=== PATIENT | male | born 1965 | race Caucasian/White ===

== ENCOUNTER 2016-12-15 13:04 | Inpatient (IN) | payer MEDICAID ==
[2016-12-15] MEDS ORDERED: SODIUM CHLORIDE 0.9% 1,000 ML IV ONE ×2 (13:27→15:04)
[2016-12-15] MEDS ORDERED: INSULIN REGULAR HUMAN 100 UNIT in SODIUM CHLORIDE 0.9% 100ML 99 ML IV STA (14:24)
[2016-12-15] MEDS ORDERED: HYDROcod/ACETAM 5/325 MG TABLET PO PRN (14:57)
[2016-12-15] MEDS ORDERED: SODIUM CHLORIDE FLUSH 0.9% 10 ML SYRINGE IVP PRN (14:57)
[2016-12-15] MEDS ORDERED: ONDANSETRON 4 MG/2 ML VIAL IVP PRN (14:57)
[2016-12-15] MEDS ORDERED: INSULIN REGULAR HUMAN 100 UNIT in SODIUM CHLORIDE 0.9% 100ML 99 ML IV SCH (15:00)
[2016-12-15] MEDS: SODIUM CHLORIDE 0.9% 1,000 ML IV SCH ×2 (15:56→21:47)
[2016-12-15] MEDS ORDERED: NICOTINE 21 MG PATCH TOP ONE (21:10)
[2016-12-15] MEDS: SODIUM CHLORIDE FLUSH 0.9% 10 ML SYRINGE IVP SCH (21:47)
[2016-12-15] MEDS ORDERED: INSULIN GLARGINE 300 UNIT/3 ML PEN SUBQ SCH (23:10)
[2016-12-15] MEDS ORDERED: INSULIN GLARGINE 300 UNIT/3 ML PEN SUBQ ONE (23:38)
[2016-12-16] MEDS: SODIUM CHLORIDE 0.9% 1,000 ML IV SCH ×4 (03:08→22:32)
[2016-12-16] MEDS: SODIUM CHLORIDE FLUSH 0.9% 10 ML SYRINGE IVP SCH ×3 (03:09→20:40)
[2016-12-16] MEDS: ACETAMINOPHEN 325 MG TABLET PO PRN ×3 (04:30→20:47)
[2016-12-16] MEDS: LEVOTHYROXINE 100 MCG TABLET PO SCH (06:43)
[2016-12-16] MEDS: INSULIN ASPART 300 UNIT/3 ML PEN SUBQ SCH ×5 (08:14→20:38)
[2016-12-16] MEDS: NICOTINE 21 MG PATCH TOP SCH (08:19)
[2016-12-16] MEDS: ENOXAPARIN 40 MG/0.4 ML SYRINGE SUBQ SCH (08:19)
[2016-12-16] MEDS ORDERED: INSULIN GLARGINE 300 UNIT/3 ML PEN SUBQ SCH (21:00)
[2016-12-17] MEDS: SODIUM CHLORIDE FLUSH 0.9% 10 ML SYRINGE IVP SCH (05:41)
[2016-12-17] MEDS: LEVOTHYROXINE 100 MCG TABLET PO SCH (06:03)
[2016-12-17] MEDS: INSULIN ASPART 300 UNIT/3 ML PEN SUBQ SCH ×4 (08:28→11:49)
[2016-12-17] MEDS: NICOTINE 21 MG PATCH TOP SCH (08:28)
[2016-12-17] MEDS: ENOXAPARIN 40 MG/0.4 ML SYRINGE SUBQ SCH (08:30)
== END 2016-12-17 13:16 | disposition home or self-care (01) | DRG 638 ==
DX: E11.01 Type 2 diabetes mellitus with hyperosmolarity with coma (principal); E87.1 Hypo-osmolality and hyponatremia; T38.3X6A Underdosing of insulin and oral hypoglycemic [antidiabetic] drugs, initial encounter; E86.0 Dehydration; B19.20 Unspecified viral hepatitis C without hepatic coma; F17.210 Nicotine dependence, cigarettes, uncomplicated; E03.9 Hypothyroidism, unspecified; Z63.79 Other stressful life events affecting family and household

== ENCOUNTER 2016-12-17 23:29 | Emergency (ER) | payer MEDICAID ==
[2016-12-18] MEDS ORDERED: INSULIN REGULAR HUMAN 100 UNIT/1 ML 10 ML MDV SUBQ STA (00:23)
[2016-12-18] MEDS ORDERED: INSULIN REGULAR HUMAN 100 UNIT/1 ML 10 ML MDV ONE (00:33)
== END 2016-12-18 02:27 | disposition home or self-care (01) ==
DX: E11.65 Type 2 diabetes mellitus with hyperglycemia (principal); Z79.4 Long term (current) use of insulin; F17.200 Nicotine dependence, unspecified, uncomplicated
CPT/HCPCS: 99283; J1815

== ENCOUNTER 2017-01-14 07:42 | Outpatient (CLI) | payer MEDICAID ==
[2017-01-14 14:05] LABS: BASOPHILS # (AUTO) 0.1 10^3/uL (0.0-0.1); BASOPHILS % (AUTO) 1.1 %; EOSINOPHILS # (AUTO) 0.4 10^3/uL (0.0-0.7); HCT - HEMATOCRIT 33.9 % (42.0-52.0); HGB - HEMOGLOBIN 11.6 g/dL (14.0-18.0); LYMPHOCYTES # (AUTO) 2.1 10^3/uL (1.5-3.5); MEAN CORPUSCULAR HGB CONC 34.1 g/dL (32.0-36.0); MEAN CORPUSCULAR VOLUME 96.8 fL (80.0-94.0); MEAN PLATELET VOLUME 11.5 fL (7.4-11.4); MONOCYTES # (AUTO) 0.7 10^3/uL (0.0-1.0); MONOCYTES % (AUTO) 9.4 %; NEUTROPHILS # (AUTO) 3.9 10^3/uL (1.5-6.6); NEUTROPHILS % (AUTO) 54.5 %; RED CELL DISTRIBUTION WIDTH 17.2 % (12.0-15.0); UNCORRECTED WHITE BLOOD COUNT 7.1 x10^3/uL; WHITE BLOOD COUNT 7.1 x10^3/uL (4.8-10.8)
[2017-01-14 14:29] LABS: HEMOGLOBIN A1C 1.08 g/dL
[2017-01-14 14:42] LABS: ALBUMIN/GLOBULIN RATIO 0.9 (1.0-2.2); BILIRUBIN,TOTAL 1.9 mg/dL (0.2-1.0); BUN - BLOOD UREA NITROGEN 17 mg/dL (6-20); CALCIUM 9.5 mg/dL (8.5-10.3); CARBON DIOXIDE - CO2 26 mmol/L (21-32); CHLORIDE 107 mmol/L (101-111); CHOL/HDL RATIO 4.2 (<5.0); CHOLESTEROL 198 mg/dL; CREATININE 0.7 mg/dL (0.6-1.2); GFR - MDRD 119 (>89); GLUCOSE 124 mg/dL (70-100); HDL CHOLESTEROL 47 mg/dL; LDL/HDL RATIO 2.7 (<3.6); POTASSIUM 4.1 mmol/L (3.5-5.0); SODIUM 140 mmol/L (135-145); TOTAL PROTEIN 7.5 g/dL (6.7-8.2); TRIGLYCERIDES 122 mg/dL; VLDL CHOLESTEROL 24 mg/dL
[2017-01-14 14:49] LABS: THYROID STIMULATING HORMONE 48.75 uIU/mL (0.34-5.60)
== END 2017-01-14 07:43 | disposition home or self-care (01) ==
LOC: LAB.N 07:42
PROVIDERS: ATTEND Family Medicine
DX: E11.65 Type 2 diabetes mellitus with hyperglycemia (principal); E03.9 Hypothyroidism, unspecified; R19.5 Other fecal abnormalities; B18.2 Chronic viral hepatitis C
CPT/HCPCS: 36415; 80053; 80061; 83036; 84439; 84443; 85025; 86803; 87522

== ENCOUNTER 2017-02-21 15:01 | Outpatient (CLI) | payer MEDICAID ==
[2017-02-21 13:30] LABS: BASOPHILS % (AUTO) 0.7 %; EOSINOPHILS # (AUTO) 0.3 10^3/uL (0.0-0.7); EOSINOPHILS % (AUTO) 3.9 %; HCT - HEMATOCRIT 38.8 % (42.0-52.0); HGB - HEMOGLOBIN 12.8 g/dL (14.0-18.0); IMMATURE RETIC FRACTION 0.36; LYMPHOCYTES # (AUTO) 1.9 10^3/uL (1.5-3.5); LYMPHOCYTES % (AUTO) 28.2 %; MEAN CORPUSCULAR HEMOGLOBIN 32.2 pg (27.0-31.0); MEAN CORPUSCULAR VOLUME 97.5 fL (80.0-94.0); MEAN PLATELET VOLUME 11.3 fL (7.4-11.4); MONOCYTES # (AUTO) 0.6 10^3/uL (0.0-1.0); MONOCYTES % (AUTO) 8.6 %; NEUTROPHILS # (AUTO) 3.9 10^3/uL (1.5-6.6); NEUTROPHILS % (AUTO) 58.6 %; NUCLEATED RED BLOOD CELLS AUTO 0.2 /100WBC; RED BLOOD COUNT 3.98 10^6/uL (4.70-6.10); RED CELL DISTRIBUTION WIDTH 14.3 % (12.0-15.0); UNCORRECTED WHITE BLOOD COUNT 6.7 x10^3/uL; WHITE BLOOD COUNT 6.7 x10^3/uL (4.8-10.8)
[2017-02-21 14:02] LABS: FERRITIN 531.1 ng/mL (23.9-336.2)
[2017-02-21 14:12] LABS: THYROID STIMULATING HORMONE 28.73 uIU/mL (0.34-5.60)
== END 2017-02-21 15:02 | disposition home or self-care (01) ==
LOC: LAB.N 15:01
PROVIDERS: ATTEND Family Medicine
DX: D53.9 Nutritional anemia, unspecified (principal); E03.9 Hypothyroidism, unspecified
CPT/HCPCS: 36415; 82607; 82728; 82746; 84439; 84443; 85025; 85044

== ENCOUNTER 2017-03-15 07:29 | Emergency (ER) | payer MEDICAID ==
[2017-03-15] MEDS ORDERED: SODIUM CHLORIDE 0.9% 1,000 ML IV ONE ×2 (07:55→10:32)
[2017-03-15] MEDS ORDERED: BENZONATATE 100 MG CAPSULE PO STA (07:56)
[2017-03-15] MEDS ORDERED: guaiFENesin/CODEINE 5 ML UDC PO STA (07:56)
--- NOTE | 2017-03-15 08:01 | ED Physician Documentation ---
History of Present Illness - Stated complaint Stated Complaint: COUGH - Chief complaint Chief Complaint: General - Additonal information Additional information: hx from pt and 51 male poorly controlled diabetic (sounds likely type 2 as he takes metformin as well as insulin and does not know what DKA is) also hep C denies HIV to ER with 9 days of worsening cough no with fever, pleuritic CP, hemotpyisis, epistaxis, and two episodes of vomiting a small amt of blood - no bloody black BM amt of blood was small maybe quarter sized and his blood sugar is running > 600 denies travel denies TB exposure smoker has not seen PMD for same Review of Systems Constitutional: reports: Fever, Chills Nose: reports: Congestion, Epistaxis, Sinus pressure / pain Throat: denies: Sore throat Respiratory: reports: Cough, Hemoptysis GI: reports: Nausea, Vomiting, Diarrhea, Hematemesis (possible due to bloody nasal dc). denies: Abdominal Pain, Bloody / black stool Skin: denies: Rash Endocrine: denies: Easy bruising / bleeding Immunocompromised: denies: Immunocompromised PD PAST MEDICAL HISTORY - Past Medical History Endocrine/Autoimmune: Type 2 diabetes - Past Surgical History Past Surgical History: No - Present Medications Home Medications: Ambulatory Orders Medication Instructions Recorded Confirmed Insulin Glargine,Hum.rec.anlog 30 units SUBQ QPM 12/15/16 12/15/16 [Lantus Solostar] Acetaminophen [Tylenol] 650 mg PO Q4HR PRN #0 tablet 12/17/16 Levothyroxine Sodium 100 mcg PO QDAC #30 tablet 12/17/16 Nicotine 21 mg Patch [Nicoderm] 1 patch TOP DAILY #14 patch 12/17/16 Benzonatate [Tessalon] 100 mg PO TID PRN #20 capsule 03/15/17 Fluticasone [Flonase] 1 sprays HARRIETT BID PRN #1 bottle 03/15/17 guaiFENesin/DEXTROMETHORPHAN 10 ml PO Q6H PRN #120 ml 03/15/17 [Robitussin Dm] metFORMIN [Glucophage] 500 mg PO BIDWM 03/15/17 03/15/17 - Allergies Allergies/Adverse Reactions: Allergies Allergy/AdvReac Type Severity Reaction Status Date / Time No Known Drug Allergies Allergy Verified 04/28/17 23:41 - Social History Does the pt smoke?: Yes Smoking Status: Current every day smoker Does the pt have substance abuse?: No PD ED PE NORMAL - Vitals Vital signs reviewed: Yes - General General: Alert and oriented X 3 - HEENT HEENT: PERRL - Neck Neck: Supple, no meningeal sign - Cardiac Cardiac: RRR - Respiratory Respiratory: Other (dec parveen, no rales no ronchi no wheeze, deep cough, able to speak full sentences) - Derm Derm: Normal color - Extremities Extremities: No deformity, Normal ROM s pain, No edema, No calf tenderness / cord - Neuro Neuro: Alert and oriented X 3, No motor deficit Results - Vitals Vitals: Vital Signs - 24 hr 03/15/17 03/15/17 03/15/17 07:36 10:27 12:02 Temperature 37.0 C 36.9 C Heart Rate 101 H 98 77 Respiratory 20 16 17 Rate Blood Pressure 152/93 H 173/102 H 146/82 H O2 Saturation 99 96 96 Oxygen O2 Source Room air - Labs Labs: Laboratory Tests 03/15/17 03/15/17 03/15/17 08:16 08:22 08:22 WBC 8.3 RBC 4.21 L Hgb 13.5 L Hct 40.7 L MCV 96.6 H MCH 32.1 H MCHC 33.3 RDW 13.6 Plt Count 104 L MPV 11.7 H Neut # 6.0 Lymph # 1.4 L [place] # 0.6 Eos # 0.2 Baso # 0.0 Absolute Nucleated RBC 0.01 Nucleated RBCs 0.1 PT INR Sodium 129 L Potassium 4.8 Chloride 95 L Carbon Dioxide 25 Anion Gap 9.0 BUN 26 H Creatinine 1.0 Estimated GFR (MDRD) 79 L Glucose 516 H* POC Whole Bld Glucose 530 H* Calcium 10.7 H 03/15/17 03/15/17 03/15/17 08:22 10:25 12:00 WBC RBC Hgb Hct MCV MCH MCHC RDW Plt Count MPV Neut # Lymph # [place] # Eos # Baso # Absolute Nucleated RBC Nucleated RBCs PT 12.9 H INR 1.2 Sodium Potassium Chloride Carbon Dioxide Anion Gap BUN Creatinine Estimated GFR (MDRD) Glucose POC Whole Bld Glucose 458 H 313 H Calcium - Rads (name of study) CXR Radiology: See rad report (NACPD) PD MEDICAL DECISION MAKING - ED course ED course: no pna viral bronchitis with hemoptysis and hematemisis both small amt - could be due to recent epistaxis related to his congestion will dc if can get blood sugar down plan to dc with hesham barcenas DM, flonase, sudafed his PMD is on vacation but should have a covering doc who can recheck pt and blood sugar control later this week Departure - Departure Disposition: 01 Home, Self Care Clinical Impression: Bronchitis, Hemoptysis, Hyperglycemia Condition: Good Instructions: ED URI Viral, ED Hemoptysis, ED Hyperglycemia Diabetic Prescriptions: Fluticasone [Flonase] 1 sprays HARRIETT BID PRN #1 bottle PRN Reason: allergies guaiFENesin/DEXTROMETHORPHAN [Robitussin Dm] 10 ml PO Q6H PRN #120 ml PRN Reason: Cough Benzonatate [Tessalon] 100 mg PO TID PRN #20 capsule PRN Reason: to ease cough Comments: The xay does not show pneumonia. The blood you are coughing and vomiting up is likely due to your nasal / sinus congestion and bloody nose. You do not need medications at this time but I have prescribed medications to ease your symptoms If you cough up or vomit up large amounts of blood (quarter cup or more) come back to the ER and you will likely need to be transferred to larger hospital Your blood sugar is very poorly controlled - even for being sick - you need to take your medications as prescribed and follow up with your PMD tomorrow for a recheck Also your blood pressure is high and needs to be rechecked
[2017-03-15] MEDS ORDERED: BENZONATATE 100 MG CAPSULE PO ONE (08:04)
[2017-03-15] MEDS ORDERED: guaiFENesin/CODEINE 5 ML UDC ONE (08:04)
[2017-03-15 08:38] LABS: BASOPHILS % (AUTO) 0.6 %; EOSINOPHILS # (AUTO) 0.2 10^3/uL (0.0-0.7); EOSINOPHILS % (AUTO) 2.4 %; HCT - HEMATOCRIT 40.7 % (42.0-52.0); HGB - HEMOGLOBIN 13.5 g/dL (14.0-18.0); LYMPHOCYTES # (AUTO) 1.4 10^3/uL (1.5-3.5); LYMPHOCYTES % (AUTO) 16.9 %; MEAN CORPUSCULAR HEMOGLOBIN 32.1 pg (27.0-31.0); MEAN CORPUSCULAR HGB CONC 33.3 g/dL (32.0-36.0); MEAN CORPUSCULAR VOLUME 96.6 fL (80.0-94.0); MEAN PLATELET VOLUME 11.7 fL (7.4-11.4); MONOCYTES # (AUTO) 0.6 10^3/uL (0.0-1.0); MONOCYTES % (AUTO) 7.6 %; NEUTROPHILS % (AUTO) 72.5 %; NUCLEATED RED BLOOD CELLS AUTO 0.1 /100WBC; RED BLOOD COUNT 4.21 10^6/uL (4.70-6.10); RED CELL DISTRIBUTION WIDTH 13.6 % (12.0-15.0); UNCORRECTED WHITE BLOOD COUNT 8.3 x10^3/uL; WHITE BLOOD COUNT 8.3 x10^3/uL (4.8-10.8)
[2017-03-15 08:46] LABS: INR 1.2 (0.8-1.2); PT - PROTHROMBIN TIME 12.9 secs (9.9-12.6)
[2017-03-15 08:53] LABS: CALCIUM 10.7 mg/dL (8.5-10.3); POTASSIUM 4.8 mmol/L (3.5-5.0)
[2017-03-15] MEDS ORDERED: ACETAMINOPHEN 325 MG TABLET PO STA (09:14)
[2017-03-15] MEDS ORDERED: INSULIN REGULAR HUMAN 100 UNIT/1 ML 10 ML MDV IVP STA ×2 (09:15→10:32)
--- NOTE | 2017-03-15 09:21 | XRAY Preliminary Report ---
Exam: XR Chest 2 View PA/LAT IMPRESSION: Normal 2-view chest radiography. [facility] SITE ID: [id number]
--- NOTE | 2017-03-15 09:23 | XRAY Report ---
EXAM: CHEST RADIOGRAPHY EXAM DATE: 03/15/2017 08:36 AM. CLINICAL HISTORY: Cough hemoptysis. COMPARISON: None. TECHNIQUE: 2 views. FINDINGS: Lungs/Pleura: No focal opacities evident. No pleural effusion. No pneumothorax. Normal volumes. Mediastinum: Heart and mediastinal contours are unremarkable. Other: None. IMPRESSION: Normal 2-view chest radiography. [facility] Referring Provider Line: [phone] SITE ID: [id number]
[2017-03-15] MEDS ORDERED: ACETAMINOPHEN 325 MG TABLET PO ONE (09:29)
[2017-03-15] MEDS ORDERED: INSULIN REGULAR HUMAN 100 UNIT/1 ML 10 ML MDV ONE ×2 (09:30→10:40)
[2017-03-15 12:03] VITALS: BP 146/82
== END 2017-03-15 12:21 | disposition home or self-care (01) ==
LOC: ED 07:29
DX: J40 Bronchitis, not specified as acute or chronic (principal); R04.2 Hemoptysis; E11.65 Type 2 diabetes mellitus with hyperglycemia; Z79.4 Long term (current) use of insulin; F17.200 Nicotine dependence, unspecified, uncomplicated
CPT/HCPCS: 36415; 71020; 80048; 85025; 85610; 96360; 96361; 99284; A9270; J1815

== ENCOUNTER 2017-05-10 06:18 | Outpatient (CLI) | payer MEDICAID | END 2017-05-10 06:19 | disposition critical access hospital (66) | LOC: EMS 06:18 | PROVIDERS: ATTEND Surgery | DX: R42 Dizziness and giddiness (principal); R61 Generalized hyperhidrosis | CPT/HCPCS: A0425; A0429 ==

== ENCOUNTER 2017-05-10 06:36 | Emergency (ER) | payer MEDICAID ==
[2017-05-10] MEDS ORDERED: SODIUM CHLORIDE FLUSH 0.9% 10 ML SYRINGE IVP ONE (06:46)
[2017-05-10 07:16] LABS: ALBUMIN/GLOBULIN RATIO 0.9 (1.0-2.2); BILIRUBIN,TOTAL 1.3 mg/dL (0.2-1.0); CALCIUM 10.2 mg/dL (8.5-10.3); CREATININE 1.1 mg/dL (0.6-1.2); POTASSIUM 3.1 mmol/L (3.5-5.0)
[2017-05-10 07:33] LABS: BASOPHILS # (AUTO) 0.1 10^3/uL (0.0-0.1); EOSINOPHILS # (AUTO) 0.2 10^3/uL (0.0-0.7); EOSINOPHILS % (AUTO) 4.7 %; HCT - HEMATOCRIT 39.2 % (42.0-52.0); LYMPHOCYTES # (AUTO) 1.9 10^3/uL (1.5-3.5); LYMPHOCYTES % (AUTO) 35.9 %; MEAN CORPUSCULAR HGB CONC 33.2 g/dL (32.0-36.0); MEAN CORPUSCULAR VOLUME 96.4 fL (80.0-94.0); MEAN PLATELET VOLUME 10.8 fL (7.4-11.4); MONOCYTES # (AUTO) 0.4 10^3/uL (0.0-1.0); MONOCYTES % (AUTO) 6.9 %; NEUTROPHILS # (AUTO) 2.7 10^3/uL (1.5-6.6); NEUTROPHILS % (AUTO) 51.5 %; RED BLOOD COUNT 4.07 10^6/uL (4.70-6.10); RED CELL DISTRIBUTION WIDTH 15.3 % (12.0-15.0); UNCORRECTED WHITE BLOOD COUNT 5.3 x10^3/uL; WHITE BLOOD COUNT 5.3 x10^3/uL (4.8-10.8)
--- NOTE | 2017-05-10 08:24 | ED Physician Documentation ---
History of Present Illness - Stated complaint Stated Complaint: LOW BLOOD SUGAR - Chief complaint Chief Complaint: General - Additonal information Additional information: hx from pt to ER with multiple issues he is diabetic on metformin and BID insulin (as recommended by where his adult onset diabetes was diagnosed and worked up) he and his have very little money and most of it goes to the resnt and so they cannot afford food [facility] so has been taking his diabetic meds but not eatign regularly awoke this AM sweaty and shaky and called 911 and his blood suagr was low given oral glucose and feels better because of his financial issues he is very drepssed, occasioanlly has suicidal iudeations but not right now and he had chest pressure while walking several miles home from work yesterday which lasted about 30 min, no assoc soa dipahoresis or NV, no CP now - risk factors = 51 y/o m, smoker, diabetic, lipids also reports he has hep C and sometimes vomits blood - not right now - I advised he should ask his PMD to refer for further eval such as EGD because if he has varices he could have a catastrophic bleed - this is not an active issue and does not need to be worked up today Review of Systems Constitutional: reports: Sweats (with low blood sugar). denies: Fever, Chills Cardiac: reports: Chest pain / pressure Respiratory: denies: Dyspnea, Cough GI: reports: Hematemesis (in the past not now). denies: Abdominal Pain, Nausea , Vomiting Musculoskeletal: denies: Neck pain, Back pain Psychiatric: reports: Depressed. denies: Suicidal (not at this time) Endocrine: denies: Easy bruising / bleeding Immunocompromised: denies: Immunocompromised PD PAST MEDICAL HISTORY - Past Medical History Past Medical History: Yes Endocrine/Autoimmune: Type 2 diabetes GI: Hepatitis - Past Surgical History Past Surgical History: No - Present Medications Home Medications: Ambulatory Orders Medication Instructions Recorded Confirmed Insulin Glargine,Hum.rec.anlog 40 units SUBQ BID 12/15/16 05/10/17 [Lantus Solostar] Fluticasone [Flonase] 1 sprays HARRIETT BID PRN #1 bottle 03/15/17 05/10/17 metFORMIN [Glucophage] 500 mg PO BIDWM 03/15/17 05/10/17 Amoxicillin 1 tab PO BID 05/10/17 05/10/17 Levothyroxine Sodium 125 mcg PO DAILY 05/10/17 05/10/17 - Allergies Allergies/Adverse Reactions: Allergies Allergy/AdvReac Type Severity Reaction Status Date / Time No Known Drug Allergies Allergy Verified 05/10/17 06:42 - Social History Does the pt smoke?: Yes Smoking Status: Current every day smoker Does the pt drink ETOH?: No Does the pt have substance abuse?: No - Immunizations Immunizations are current?: Yes PD ED PE NORMAL - Vitals Vital signs reviewed: Yes - General General: Alert and oriented X 3 - HEENT HEENT: PERRL - Neck Neck: Supple, no meningeal sign - Cardiac Cardiac: RRR - Respiratory Respiratory: No respiratory distress, Clear bilaterally - Abdomen Abdomen: Soft, Non tender - Derm Derm: Normal color - Extremities Extremities: No deformity, No edema, No calf tenderness / cord - Neuro Neuro: Alert and oriented X 3 - Psych Psych: No: Normal mood (depressed) Results - Vitals Vitals: Vital Signs - 24 hr 05/10/17 05/10/17 05/10/17 06:39 07:29 08:54 Temperature 35.8 C L 36.9 C Heart Rate 57 L 50 L 60 Respiratory 15 16 18 Rate Blood Pressure 165/93 H 129/80 157/86 H O2 Saturation 100 96 100 05/10/17 05/10/17 05/10/17 10:12 11:52 12:36 Temperature 36.3 C L 36.6 C 36.8 C Heart Rate 64 57 L 63 Respiratory 18 18 16 Rate Blood Pressure 155/91 H 158/100 H 148/86 H O2 Saturation 98 99 97 Oxygen O2 Source Room air - EKG (time done) 0726 Rate: Rate (enter#) (42) Rhythm: Sinus bradycardia (asymptomatic, shortly after his rate was back in the 50s) Ischemia: Non specific changes (minimal non specifci ST elev V1-V3 and flat T waves inferior) Compare to prior EKG: Unchanged from prior EKG (12/15/16) - Labs Labs: Laboratory Tests 05/10/17 05/10/17 05/10/17 06:39 06:55 06:55 WBC 5.3 RBC 4.07 L Hgb 13.0 L Hct 39.2 L MCV 96.4 H MCH 32.0 H MCHC 33.2 RDW 15.3 H Plt Count 70 L MPV 10.8 Neut # 2.7 Lymph # 1.9 [place] # 0.4 Eos # 0.2 Baso # 0.1 Absolute Nucleated RBC 0.00 Nucleated RBCs 0.0 Manual Slide Review WBC Morphology Platelet Estimate Platelet Morphology RBC Morph Micro Appear Sodium 138 Potassium 3.1 L Chloride 101 Carbon Dioxide 25 Anion Gap 12.0 BUN 21 H Creatinine 1.1 Estimated GFR (MDRD) 71 L Glucose 138 H POC Whole Bld Glucose 124 H Calcium 10.2 Total Bilirubin 1.3 H AST 155 H ALT 164 H Alkaline Phosphatase 135 H Troponin I Total Protein 8.0 Albumin 3.7 Globulin 4.3 H Albumin/Globulin Ratio 0.9 L Lipase 63 H Urine Color Urine Clarity Urine pH Ur Specific [place] Urine Protein Urine Glucose (UA) Urine Ketones Urine Occult Blood Urine Nitrite Urine Bilirubin Urine Urobilinogen Ur Leukocyte Esterase Ur Microscopic Review Urine Culture Comments 05/10/17 05/10/17 05/10/17 08:57 08:57 08:57 WBC 10.1 RBC 4.03 L Hgb 13.0 L Hct 39.1 L MCV 97.1 H MCH 32.2 H MCHC 33.2 RDW 15.5 H Plt Count Not Reportable MPV Not Reportable Neut # 6.5 Lymph # 2.5 [place] # 0.8 Eos # 0.2 Baso # 0.1 Absolute Nucleated RBC 0.01 Nucleated RBCs 0.1 Manual Slide Review Indicated WBC Morphology NORMAL APPEARANCE Platelet Estimate NORMAL (130-450,000) Platelet Morphology 2+ LARGE PLATELETS RBC Morph Micro Appear NORMAL APPEARANCE Sodium 135 Potassium 3.7 Chloride 101 Carbon Dioxide 23 Anion Gap 11.0 BUN 21 H Creatinine 1.0 Estimated GFR (MDRD) 79 L Glucose 145 H POC Whole Bld Glucose Calcium 10.1 Total Bilirubin 1.2 H AST 158 H ALT 169 H Alkaline Phosphatase 140 H Troponin I < 0.04 Total Protein 8.1 Albumin 3.8 Globulin 4.3 H Albumin/Globulin Ratio 0.9 L Lipase 63 H Urine Color Urine Clarity Urine pH Ur Specific [place] Urine Protein Urine Glucose (UA) Urine Ketones Urine Occult Blood Urine Nitrite Urine Bilirubin Urine Urobilinogen Ur Leukocyte Esterase Ur Microscopic Review Urine Culture Comments 05/10/17 05/10/17 09:35 11:09 WBC RBC Hgb Hct MCV MCH MCHC RDW Plt Count MPV Neut # Lymph # [place] # Eos # Baso # Absolute Nucleated RBC Nucleated RBCs Manual Slide Review WBC Morphology Platelet Estimate Platelet Morphology RBC Morph Micro Appear Sodium Potassium Chloride Carbon Dioxide Anion Gap BUN Creatinine Estimated GFR (MDRD) Glucose POC Whole Bld Glucose 184 H Calcium Total Bilirubin AST ALT Alkaline Phosphatase Troponin I Total Protein Albumin Globulin Albumin/Globulin Ratio Lipase Urine Color YELLOW Urine Clarity CLEAR Urine pH 6.5 Ur Specific [place] 1.015 Urine Protein NEGATIVE Urine Glucose (UA) NEGATIVE Urine Ketones NEGATIVE Urine Occult Blood NEGATIVE Urine Nitrite NEGATIVE Urine Bilirubin NEGATIVE Urine Urobilinogen 1 (NORMAL) Ur Leukocyte Esterase NEGATIVE Ur Microscopic Review NOT INDICATED Urine Culture Comments NOT INDICATED PD MEDICAL DECISION MAKING - ED course ED course: attention billing - night EMP Dr Nguyen and day EMP both ordered labs on this pt - only needed one set - please do not charge for two draws EKG abn but unchanged, trop neg and pts chest pain occurred yesterday, CXR neg - nl mediastinum - given 30 min of pain pt should have + trop if this was ACS - so feel safe to dc from cardiac pt of view - but given risk factors strongly rec that pt have stress testing as outpt HR was briefly slow but never reoccured and was asymptomatic will dc after pt meets with SW 1 PM still waiting for SW consult - pt has to catch a bus - says he is not suicidal and would like to go Departure - Departure Disposition: 01 Home, Self Care Clinical Impression: Hypoglycemia Chest pain Qualifiers: Chest pain type: unspecified Qualified Code(s): R07.9 - Chest pain, unspecified Depression Qualifiers: Depression Type: unspecified Qualified Code(s): F32.9 - Major depressive disorder, single episode, unspecified Condition: Good Instructions: ED Chest Pain Atypical Unkn Cause, ED Diabetes Hypoglycemia Insulin React, ED Depression Follow-Up: Kirk Carney MD [Primary Care Provider] - Comments: Your blood sugar was likely low due to taking your medications and not eating. It is back up now and has stayed up. Continue your medications if you are eating - SW met with to discuss resources to help you with providing food for your family. If you are not eating you should decrease or not take your insulin - please talk to your PMD how to manage a sliding scale Your EKG was unchanged from your last EKG and the blood test for your heart was fine - I do not think you had a heart attack - but you have many risk factors for heart disease and I strongly recommend you see your PMD within a week to set up stress testing for your heart. In the meantime please take a baby aspirin every day. Also please have your PMD refer you to GI to have a scope of your esophagus and stomach to see why your sometimes vomit blood I asked the social work also met with you about your depression and provided resources for to access but you could not wait any longer. If you ever feel suicidal return to the ER And your blood pressure was high - please follow up with your PMD for a recheck You must stop smoking - it worsens your risk for heart attack and it diverts money you could be using for food Forms: Activity restrictions
--- NOTE | 2017-05-10 08:50 | XRAY Preliminary Report ---
Exam: XR Chest 1 View IMPRESSION: Normal single view chest. [facility] SITE ID: [id number]
--- NOTE | 2017-05-10 08:51 | XRAY Report ---
EXAM: CHEST RADIOGRAPHY EXAM DATE: 05/10/2017 08:26 AM. CLINICAL HISTORY: Chest pain and shortness of breath. COMPARISON: Chest x-ray 03/15/2017. TECHNIQUE: 1 view. AP portable FINDINGS: Lungs/Pleura: No focal opacities evident. No pleural effusion. No pneumothorax. Mediastinum: Within exam limitations, cardiomediastinal contour is normal. Other: None. IMPRESSION: Normal single view chest. [facility] Referring Provider Line: [phone] SITE ID: [id number]
[2017-05-10 09:19] LABS: BASOPHILS # (AUTO) 0.1 10^3/uL (0.0-0.1); BASOPHILS % (AUTO) 1.2 %; EOSINOPHILS # (AUTO) 0.2 10^3/uL (0.0-0.7); EOSINOPHILS % (AUTO) 2.1 %; HCT - HEMATOCRIT 39.1 % (42.0-52.0); LYMPHOCYTES # (AUTO) 2.5 10^3/uL (1.5-3.5); LYMPHOCYTES % (AUTO) 24.9 %; MEAN CORPUSCULAR HEMOGLOBIN 32.2 pg (27.0-31.0); MEAN CORPUSCULAR HGB CONC 33.2 g/dL (32.0-36.0); MEAN CORPUSCULAR VOLUME 97.1 fL (80.0-94.0); MONOCYTES # (AUTO) 0.8 10^3/uL (0.0-1.0); MONOCYTES % (AUTO) 7.7 %; NEUTROPHILS # (AUTO) 6.5 10^3/uL (1.5-6.6); NEUTROPHILS % (AUTO) 64.1 %; NUCLEATED RED BLOOD CELLS AUTO 0.1 /100WBC; RED BLOOD COUNT 4.03 10^6/uL (4.70-6.10); RED CELL DISTRIBUTION WIDTH 15.5 % (12.0-15.0); UNCORRECTED WHITE BLOOD COUNT 10.8 x10^3/uL; WHITE BLOOD COUNT 10.1 x10^3/uL (4.8-10.8)
[2017-05-10 09:21] LABS: ALBUMIN/GLOBULIN RATIO 0.9 (1.0-2.2); BILIRUBIN,TOTAL 1.2 mg/dL (0.2-1.0); CALCIUM 10.1 mg/dL (8.5-10.3); POTASSIUM 3.7 mmol/L (3.5-5.0); TOTAL PROTEIN 8.1 g/dL (6.7-8.2)
[2017-05-10 09:40] LABS: BILIRUBIN,URINE NEGATIVE (NEGATIVE); PH,URINE 6.5 PH (5.0-7.5)
[2017-05-10 09:43] LABS: UA CHARGE (STRIP ONLY) YES; UR CULTURE IF IND NOT INDICATED
[2017-05-10 09:52] LABS: PLATELET ESTIMATE, MANUAL NORMAL (130-450,000) (NORMAL); WBC MORPHOLOGY (MULTIPLE) NORMAL APPEARANCE (NORMAL)
[2017-05-10 12:37] VITALS: BP 148/86
== END 2017-05-10 13:15 | disposition home or self-care (01) ==
LOC: EDUNIT# → ED 06:36
DX: E11.649 Type 2 diabetes mellitus with hypoglycemia without coma (principal); R07.9 Chest pain, unspecified; F32.9 Major depressive disorder, single episode, unspecified; K92.0 Hematemesis; F17.200 Nicotine dependence, unspecified, uncomplicated; R00.1 Bradycardia, unspecified; Z79.4 Long term (current) use of insulin; Z79.84 Long term (current) use of oral hypoglycemic drugs
CPT/HCPCS: 36415; 71010; 80053; 81001; 81003; 83690; 84484; 85025; 87086; 93005; 99284

== ENCOUNTER 2017-08-06 14:00 | Outpatient (CLI) | payer MEDICAID | END 2017-08-06 14:01 | disposition critical access hospital (66) | LOC: EMS 14:00 | PROVIDERS: ATTEND Surgery | DX: R73.9 Hyperglycemia, unspecified (principal) | CPT/HCPCS: A0425; A0427 ==

== ENCOUNTER 2017-08-06 14:20 | Inpatient (IN) | payer MEDICAID ==
[2017-08-06] MEDS ORDERED: SODIUM CHLORIDE 0.9% 1,000 ML IV ONE ×3 (14:31→15:50)
--- NOTE | 2017-08-06 14:35 | ED Physician Documentation ---
History of Present Illness - Stated complaint Stated Complaint: HIGH BLOOD SUGAR - Chief complaint Chief Complaint: Abd Pain - History obtained from History obtained from: Patient, Family, EMS - History of Present Illness Timing: How many weeks ago (1) - Additonal information Additional information: 52-year-old male is homeless and diabetic. He has been eating at this been caf and feels that the food is much too sugary form there and he has been attempting to adjust his dose of insulin in the evening as this is been causing him some nausea. He has been urinating a lot and drinking a lot and he is out of lancets for checking his blood sugar. He does have insulin and one syringe left and he does not have his metformin. He feels like his blood sugar is high and when medics picked him up, their monitor read high as well Review of Systems Constitutional: reports: Fatigue. denies: Fever Eyes: denies: Decreased vision Ears: denies: Ear pain Nose: denies: Rhinorrhea / runny nose, Congestion Throat: denies: Sore throat Cardiac: denies: Chest pain / pressure, Palpitations Respiratory: denies: Dyspnea, Cough GI: reports: Abdominal Pain, Nausea, Vomiting : reports: Frequency. denies: Dysuria Skin: denies: Rash Musculoskeletal: reports: Neck pain, Extremity pain. denies: Back pain Neurologic: denies: Generalized weakness, Focal weakness, Numbness Endocrine: reports: Polydypsia, Polyuria PD PAST MEDICAL HISTORY - Past Medical History Endocrine/Autoimmune: Type 2 diabetes GI: Hepatitis - Past Surgical History Past Surgical History: No - Present Medications Home Medications: Ambulatory Orders Medication Instructions Recorded Confirmed metFORMIN [Glucophage] 500 mg PO BIDWM 03/15/17 08/06/17 Levothyroxine Sodium 125 mcg PO DAILY 05/10/17 08/06/17 Insulin NPH Hum/Reg Insulin Hm 40 units SQ BID 08/06/17 08/06/17 [Novolin 70-30 100 Unit/ml Vial] - Allergies Allergies/Adverse Reactions: Allergies Allergy/AdvReac Type Severity Reaction Status Date / Time No Known Drug Allergies Allergy Verified 08/06/17 14:26 - Social History Does the pt smoke?: Yes Smoking Status: Current every day smoker Does the pt drink ETOH?: No Does the pt have substance abuse?: No - Immunizations Immunizations are current?: Yes PD ED PE NORMAL - Vitals Vital signs reviewed: Yes (hypertension) - General General: Alert and oriented X 3, No acute distress, Well developed/nourished - HEENT HEENT: Atraumatic, PERRL, EOMI, Ears normal, Other (dry mucous membranes ) - Neck Neck: Supple, no meningeal sign, No bony TTP, Other (There is some mild tenderness to the paraspinous muscles of the right side of the neck. ) - Cardiac Cardiac: RRR, No murmur - Respiratory Respiratory: No respiratory distress, Clear bilaterally - Abdomen Abdomen: Soft, Non tender - Back Back: No CVA TTP, No spinal TTP - Derm Derm: Normal color, Warm and dry, No rash - Extremities Extremities: No deformity, No edema - Neuro Neuro: No motor deficit, No sensory deficit, Normal speech Eye Opening: Spontaneous Motor: Obeys Commands Verbal: Oriented GCS Score: 15 - Psych Psych: Normal mood, Normal affect Results - Vitals Vitals: Vital Signs - 24 hr 08/06/17 14:20 Temperature 36.7 C Heart Rate 84 Respiratory 16 Rate Blood Pressure 148/97 H O2 Saturation 99 Oxygen O2 Source Room air - Labs Labs: Laboratory Tests 08/06/17 08/06/17 08/06/17 15:04 15:04 15:04 WBC 6.3 RBC 3.67 L Hgb 12.1 L Hct 36.9 L MCV 100.5 H MCH 32.8 H MCHC 32.6 RDW 15.5 H Plt Count 65 L MPV 12.0 H Neut # 4.0 Lymph # 1.5 [place] # 0.3 Eos # 0.3 Baso # 0.1 Absolute Nucleated RBC 0.00 Nucleated RBC % 0.0 VBG pH VBG pCO2 VBG pO2 VBG HCO3 VBG Total CO2 VBG O2 Saturation VBG Base Excess Sodium 125 L Potassium 5.1 H Chloride 92 L Carbon Dioxide 23 Anion Gap 10.0 BUN 22 H Creatinine 1.2 Estimated GFR (MDRD) 64 L Glucose 826 H* Lactic Acid Calcium 9.5 Total Bilirubin 1.2 H AST 121 H ALT 186 H Alkaline Phosphatase 147 H Troponin I < 0.04 Total Protein 7.6 Albumin 3.4 Globulin 4.2 Albumin/Globulin Ratio 0.8 L Lipase 77 H 08/06/17 08/06/17 15:04 15:04 WBC RBC Hgb Hct MCV MCH MCHC RDW Plt Count MPV Neut # Lymph # [place] # Eos # Baso # Absolute Nucleated RBC Nucleated RBC % VBG pH 7.350 VBG pCO2 45.0 VBG pO2 28.7 VBG HCO3 24.3 VBG Total CO2 25.7 VBG O2 Saturation 52.6 L VBG Base Excess -1.5 Sodium Potassium Chloride Carbon Dioxide Anion Gap BUN Creatinine Estimated GFR (MDRD) Glucose Lactic Acid 3.5 H* Calcium Total Bilirubin AST ALT Alkaline Phosphatase Troponin I Total Protein Albumin Globulin Albumin/Globulin Ratio Lipase Procedures - IVC sono (time) 1430 Bedside IVC sono: IVC measures (cm) (0.77), IVC collapsed c insp (cm) (complete) , Significant dehydration PD MEDICAL DECISION MAKING - ED course Complexity details: reviewed old records, reviewed results, re-evaluated patient , considered differential, d/w patient, d/w family ED course: 52-year-old homeless male not taking care of his diabetes comes to the emergency department with elevated blood glucose and polyuria and polydipsia. He is found to be significantly dehydrated and IV saline is started. His blood glucose is 830 and his lactate is 3.4. IV hydration is continued and insulin drip is begun. Departure - Departure Disposition: [facility] DC/Xfer Clinical Impression: Dehydration Uncontrolled type 2 diabetes mellitus Qualifiers: Diabetes mellitus complication status: with other specified complication Diabetes mellitus shelter insulin use: with shelter use Qualified Code(s): E11.69 - Type 2 diabetes mellitus with other specified complication; E11.65 - Type 2 diabetes mellitus with hyperglycemia; E11.65 - Type 2 diabetes mellitus with hyperglycemia; E11.65 - Type 2 diabetes mellitus with hyperglycemia; E11.65 - Type 2 diabetes mellitus with hyperglycemia; 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
[2017-08-06 15:13] LABS: BASOPHILS # (AUTO) 0.1 10^3/uL (0.0-0.1); BASOPHILS % (AUTO) 0.9 %; EOSINOPHILS # (AUTO) 0.3 10^3/uL (0.0-0.7); EOSINOPHILS % (AUTO) 5.6 %; HCT - HEMATOCRIT 36.9 % (42.0-52.0); HGB - HEMOGLOBIN 12.1 g/dL (14.0-18.0); LYMPHOCYTES # (AUTO) 1.5 10^3/uL (1.5-3.5); LYMPHOCYTES % (AUTO) 23.4 %; MEAN CORPUSCULAR HEMOGLOBIN 32.8 pg (27.0-31.0); MEAN CORPUSCULAR HGB CONC 32.6 g/dL (32.0-36.0); MEAN CORPUSCULAR VOLUME 100.5 fL (80.0-94.0); MONOCYTES # (AUTO) 0.3 10^3/uL (0.0-1.0); MONOCYTES % (AUTO) 5.6 %; NEUTROPHILS % (AUTO) 64.5 %; RED BLOOD COUNT 3.67 10^6/uL (4.70-6.10); RED CELL DISTRIBUTION WIDTH 15.5 % (12.0-15.0); UNCORRECTED WHITE BLOOD COUNT 6.3 x10^3/uL; WHITE BLOOD COUNT 6.3 x10^3/uL (4.8-10.8)
[2017-08-06 15:15] LABS: VBG PH 7.35 (7.31-7.41)
[2017-08-06 15:16] LABS: VBG BASE EXCESS -1.5 mmol/L (-2 - +2); VBG OXYGEN SATURATION 52.6 % (60-80); VBG TOTAL CO2 25.7 mmol/L (24-29)
[2017-08-06 15:33] LABS: ALBUMIN/GLOBULIN RATIO 0.8 (1.0-2.2); BILIRUBIN,TOTAL 1.2 mg/dL (0.2-1.0); BUN - BLOOD UREA NITROGEN 22 mg/dL (6-20); CALCIUM 9.5 mg/dL (8.5-10.3); CARBON DIOXIDE - CO2 23 mmol/L (21-32); CHLORIDE 92 mmol/L (101-111); CREATININE 1.2 mg/dL (0.6-1.2); GFR - MDRD 64 (>89); GLUCOSE 826 mg/dL (70-100); LIPASE 77 U/L (22-51); POTASSIUM 5.1 mmol/L (3.5-5.0); SODIUM 125 mmol/L (135-145); TOTAL PROTEIN 7.6 g/dL (6.7-8.2)
[2017-08-06 15:36] LABS: BILIRUBIN,URINE NEGATIVE (NEGATIVE); PH,URINE 5.5 PH (5.0-7.5)
[2017-08-06] MEDS ORDERED: INSULIN REGULAR HUMAN 100 UNIT in SODIUM CHLORIDE 0.9% 100ML 99 ML IV STA (15:38)
[2017-08-06 15:43] LABS: UA CHARGE (STRIP ONLY) YES; UR CULTURE IF IND NOT INDICATED
[2017-08-06] MEDS ORDERED: PROCHLORPERAZINE 10 MG/2 ML VIAL IVP PRN (16:47)
[2017-08-06] MEDS ORDERED: SODIUM CHLORIDE FLUSH 0.9% 10 ML SYRINGE IVP PRN (16:47)
[2017-08-06] MEDS ORDERED: IBUPROFEN 400 MG TABLET PO PRN (16:47)
[2017-08-06] MEDS ORDERED: INSULIN REGULAR HUMAN 100 UNIT in SODIUM CHLORIDE 0.9% 100ML 99 ML IV SCH (16:47)
[2017-08-06] MEDS ORDERED: NS W/20 MEQ KCL 1,000 ML IV SCH (17:00)
--- NOTE | 2017-08-06 17:13 | HISTORY & PHYSICAL EXAMINATION ---
Chief Complaint - Chief Complaint Chief Complaint: Increased thirst, increased urination, nausea and vomiting for 2-3 days History of Present Illness - Admitted From Admitted From:: Home - History Obtained From Records Reviewed: In ED. History obtained from: Patient and - History of Present Illness HPI Comment/Other: Mr Seth Nicholson is a pleasant 52 year old man who has a history of insulin dependant diabetes, hypothyroidism, and hepatitis C. He and his have been experiencing financial difficulties and have been homeless for the last several days. They have been eating at the [employer] which has food for the homeless but most of the foods are high in sugar according to Mr Nicholson; he has not taken his metformin for over 2 months and has not been testing his blood sugars due to a lack of lancets. He also relates that his insulin syringes are at a friend's house and that he has no way to get them but did take insulin yesterday. He has been experiencing increased thirst and urination as well as nausea and vomiting for the last few days, which prompted him to come to the ED today. History - Past Medical History Cardiovascular: denies: Hypertension, High cholesterol, Coronary artery disease Respiratory: denies: COPD, Shortness of breath, Sleep apnea Neuro: reports: Peripheral neuropathy. denies: Headache/migraine, Seizure disorder Endocrine/Autoimmune: reports: Type 2 diabetes, HyPOthyroidism GI: reports: Hepatitis. denies: GERD, Esophageal varices : reports: Frequency. denies: Retention, Incontinence HEENT: reports: None Psych: reports: Depression, Anxiety Musculoskeletal: reports: None Derm: reports: None MRSA Hx?: No - Family & Social History Family History: Mother: (Breast Cancer), Father: Alive and Well, Other family: Diabetes, Type 2, Hypertension, PVD/PAD (Diabetes related in an uncle), Renal Disease/Failure Living arrangement: Homeless Living Situation: With spouse/s.o. - Substance History Use: Uses substance without health or social issues: Tobacco, Cannabis Tobacco Details: Cigarettes, Chewing Tobacco (Formerly) - POLST Patient has POLST: Yes POLST Status: Full Code Meds/Allgy - Home Medications Home Medications: Ambulatory Orders Medication Instructions Recorded Confirmed metFORMIN [Glucophage] 500 mg PO BIDWM 03/15/17 08/06/17 Insulin NPH Hum/Reg Insulin Hm 40 units SQ BID 08/06/17 08/06/17 [Novolin 70-30 100 Unit/ml Vial] Levothyroxine Sodium [Synthroid] 150 mcg PO QDAC 08/06/17 08/06/17 - Allergies Allergies/Adverse Reactions: Allergies Allergy/AdvReac Type Severity Reaction Status Date / Time No Known Drug Allergies Allergy Verified 08/06/17 14:26 Review of Systems - Constitutional Constitutional: reports: Fatigue, Weakness, Weight loss - Eyes Eyes: denies: Pain, Vision loss, Dipolpia - Ears, Nose & Throat Ears, Nose & Throat: denies: Ear pain, Hearing loss, Tinnitus, Nosebleeds, Mouth lesions - Cardiovascular Cariovascular: reports: Decr. exercise tolerance. denies: Palpitations, Chest pain, Edema - Respiratory Respiratory: denies: Cough, Sputum production, Wheezing, Hemoptysis - Gastrointestinal Gastrointestinal: denies: Abdominal pain, Constipation, Change in bowel habits - Genitourinary Genitourinary: reports: Frequency. denies: Dysuria, Hematuria - Musculoskeletal Musculoskeletal: reports: Muscle weakness. denies: Muscle pain, Back pain - Integumentary Integumentary: denies: Rash, Pruritis, Lesions - Neurological Neurological: reports: Numbness (Presumed diabetic neuropathy secondary to poor glucose control) - Psychiatric Psychiatric: reports: Depression, Anxiety. denies: Suicidal, Delusions, Hallucinations - Endocrine Endocrine: reports: Polyuria, Polydypsia - Hematologic/Lymphatic Hematologic/Lymphatic: denies: Bruising, Petechiae, Lymphadenopathy - All Other Systems All Other Systems: reports: Reviewed and negative Exam - Vital Signs Vital Signs: Vital Signs x48h Temp Pulse Resp BP Pulse Ox 08/06/17 17:06 36.7 C 62 18 116/72 97 08/06/17 16:08 36.9 C 66 15 122/83 H 100 08/06/17 14:20 36.7 C 84 16 148/97 H 99 - Physical Exam General Appearance: positive: No acute distress, Alert, Anxious (slightly) Eyes Bilateral: positive: Normal inspection, PERRL, EOMI ENT: positive: ENT inspection nml, Dry mucous membranes. negative: Purulent nasal drainage, Oral lesions Neck: positive: Nml inspection, No JVD, Trachea midline. negative: Thyromegaly , Swelling/bruising Respiratory: positive: Chest non-tender, No respiratory distress, Breath sounds nml. negative: Wheezes, Rales, Rhonchi Cardiovascular: positive: Regular rate & rhythm. negative: No murmur, No gallop , JVD present Peripheral Pulses: positive: 1+ Abdomen: positive: Non-tender, No organomegaly, Nml bowel sounds, No distention. negative: Tenderness, Guarding, Rebound, Hepatomegaly, Splenomegaly Back: positive: Nml inspection. negative: CVA tenderness (R), CVA tenderness (L ) Skin: positive: Color nml, No rash, Warm, Dry Conclusion/Plan - Problem List (1) Hyperosmolar non-ketotic state in patient with type 2 diabetes mellitus Conclusion/Plan: The patient has been started on an insulin drip, and will continue rehydration with NS with 20meq kcl. The patient will be admitted to the ICU and will have his blood sugars monitored q4h until glucose and lactic acid have normalized. Ed physician estimated that the patient was approximately 3 l hypovolemic per us of vena cava. Patient has been counseled on importance of avoiding sugary foods and the need for compliance with his dibetic medications was emphasized several times. (2) Anxiety and depression Conclusion/Plan: Will start patient on zoloft 50 mg daily with intention to move the patient to 100mg daily after 1 week. (3) Dehydration Conclusion/Plan: Rehydrating with normal saline as noted above. (4) Thrombocytopenia Conclusion/Plan: Will monitor. Pt has a history of chronic thrombocytopenia seen on several visits since November of 2016. No history of spontaneous bleeding events. - Lab Results Fish Bones: 08/06/17 15:04 08/06/17 15:04 Issues/Core Measures - Anticipated LOS Anticipated Stay Length: 2 or more midnights - [facility] Requirement for [facility] I expect patient to be DC'd or transferred within 96 hours.: Yes - Issues Hospital Issues and Management Plan: Patient and are currently homeless. Of note is that the pt's is also a diabetic and has hypertension and admits to ignoring her health because of the living situation and the patient's current medical problems. - DVT/VTE - Prophylaxis VTE/DVT Device ordered at admit?: Yes VTE/DVT Prophylaxis med ordered at admit?: No - Stroke - Rehab Assessment Rehab services assessment to be ordered?: No
[2017-08-06 17:31] LABS: VBG BASE EXCESS -0.7 mmol/L (-2 - +2); VBG OXYGEN SATURATION 41.6 % (60-80); VBG PH 7.332 (7.31-7.41); VBG TOTAL CO2 27.3 mmol/L (24-29)
[2017-08-06 17:44] LABS: HEMOGLOBIN A1C 1.29 g/dL
[2017-08-06 17:45] LABS: CALCIUM 9.9 mg/dL (8.5-10.3); POTASSIUM 3.9 mmol/L (3.5-5.0)
[2017-08-06] MEDS: SERTRALINE 50 MG TABLET PO SCH (18:50)
[2017-08-06] MEDS ORDERED: POTASSIUM CHLORIDE INJ 40 MEQ in SODIUM CHLORIDE 0.45% 1,000 ML IV SCH (19:00)
[2017-08-06] MEDS: NS W/20 MEQ KCL 1,000 ML IV SCH (19:53)
[2017-08-06] MEDS: INSULIN GLARGINE 300 UNIT/3 ML PEN SUBQ SCH ×2 (20:21→20:24)
[2017-08-06] MEDS: SODIUM CHLORIDE FLUSH 0.9% 10 ML SYRINGE IVP SCH (21:28)
[2017-08-06 21:46] LABS: CALCIUM 9.3 mg/dL (8.5-10.3); CREATININE 0.8 mg/dL (0.6-1.2); POTASSIUM 3.4 mmol/L (3.5-5.0)
[2017-08-06] MEDS ORDERED: POTASSIUM CHLORIDE 20 MEQ TABLET PO ONE (21:50)
[2017-08-06] MEDS: FAMOTIDINE 20 MG/50 ML 50 ML IV SCH (21:51)
[2017-08-06] MEDS ORDERED: ONDANSETRON 4 MG/2 ML VIAL IVP PRN (23:53)
[2017-08-07] MEDS: NS W/20 MEQ KCL 1,000 ML IV SCH ×3 (02:37→17:07)
[2017-08-07 05:00] LABS: BASOPHILS # (AUTO) 0.1 10^3/uL (0.0-0.1); BASOPHILS % (AUTO) 1.4 %; EOSINOPHILS # (AUTO) 0.5 10^3/uL (0.0-0.7); HCT - HEMATOCRIT 34.9 % (42.0-52.0); HGB - HEMOGLOBIN 11.8 g/dL (14.0-18.0); LYMPHOCYTES # (AUTO) 2.3 10^3/uL (1.5-3.5); MEAN CORPUSCULAR HEMOGLOBIN 32.6 pg (27.0-31.0); MEAN CORPUSCULAR HGB CONC 33.7 g/dL (32.0-36.0); MEAN CORPUSCULAR VOLUME 96.8 fL (80.0-94.0); MEAN PLATELET VOLUME 11.3 fL (7.4-11.4); MONOCYTES # (AUTO) 0.3 10^3/uL (0.0-1.0); MONOCYTES % (AUTO) 4.4 %; NEUTROPHILS # (AUTO) 3.3 10^3/uL (1.5-6.6); NEUTROPHILS % (AUTO) 51.2 %; RED BLOOD COUNT 3.61 10^6/uL (4.70-6.10); RED CELL DISTRIBUTION WIDTH 15.2 % (12.0-15.0); UNCORRECTED WHITE BLOOD COUNT 6.5 x10^3/uL; WHITE BLOOD COUNT 6.5 x10^3/uL (4.8-10.8)
[2017-08-07 05:32] LABS: ALBUMIN/GLOBULIN RATIO 0.8 (1.0-2.2); BILIRUBIN,TOTAL 1.1 mg/dL (0.2-1.0); CALCIUM 8.8 mg/dL (8.5-10.3); CREATININE 0.8 mg/dL (0.6-1.2); MAGNESIUM 1.6 mg/dL (1.7-2.8); POTASSIUM 4.5 mmol/L (3.5-5.0); TOTAL PROTEIN 6.9 g/dL (6.7-8.2)
[2017-08-07 06:14] LABS: HEMOGLOBIN A1C 1.25 g/dL
[2017-08-07] MEDS ORDERED: MAGNESIUM OXIDE 400 MG TABLET PO SCH (06:30)
[2017-08-07] MEDS: SODIUM CHLORIDE FLUSH 0.9% 10 ML SYRINGE IVP SCH ×3 (06:30→20:44)
[2017-08-07] MEDS: LEVOTHYROXINE 75 MCG TABLET PO SCH (06:46)
--- NOTE | 2017-08-07 07:56 | DISCHARGE SUMMARY ---
Discharge Summary Condition at Discharge: Serious - ALLERGIES Allergies/Adverse Reactions: Allergies Allergy/AdvReac Type Severity Reaction Status Date / Time No Known Drug Allergies Allergy Verified 08/06/17 14:26 - MEDICATIONS Home Medications: Ambulatory Orders Medication Instructions Recorded Confirmed metFORMIN [Glucophage] 500 mg PO BIDWM 03/15/17 08/06/17 Insulin NPH Hum/Reg Insulin Hm 40 units SQ BID 08/06/17 08/06/17 [Novolin 70-30 100 Unit/ml Vial] Levothyroxine Sodium [Synthroid] 150 mcg PO QDAC 08/06/17 08/06/17 - LABS Result Diagrams: 08/07/17 04:33 08/07/17 04:33
[2017-08-07] MEDS: INSULIN ASPART 300 UNIT/3 ML PEN SUBQ SCH ×4 (08:01→20:44)
[2017-08-07] MEDS: SERTRALINE 50 MG TABLET PO SCH (08:28)
[2017-08-07] MEDS ORDERED: MAGNESIUM SULFATE 2 GRAM 2 GM/50 ML BAG IV ONE (08:30)
[2017-08-07] MEDS: FAMOTIDINE 20 MG/50 ML 50 ML IV SCH ×2 (09:15→20:47)
--- NOTE | 2017-08-07 09:26 | PROVIDER PROGRESS NOTE ---
Subjective - Prog Note Date Prog Note Date: 08/07/17 Prog Note Time: 09:25 - Subjective Pt reports feeling: Improved (Nausea and vomiting resolved, pt no longer c/o polyuria or polydipsia. Muscle weakness is improving.) Objective - Vital Signs/Intake & Output Vital Signs: Vital Signs Pulse Resp BP Pulse Ox 08/07/17 09:00 63 14 125/78 97 08/07/17 08:00 62 16 96 08/07/17 07:00 62 15 130/83 H 97 08/07/17 06:00 61 12 110/70 97 Intake & Output: Intake & Output 08/04/17 08/05/17 08/06/17 08/07/17 23:59 23:59 23:59 23:59 Intake Total 425 1420 Output Total 375 Balance 425 1045 - Objective General Appearance: positive: No acute distress, Alert, Anxious (slightly) Eyes Bilateral: positive: Normal inspection, PERRL, EOMI ENT: positive: ENT inspection nml, No signs of dehydration. negative: Purulent nasal drainage, Oral lesions Neck: positive: Nml inspection, Trachea midline. negative: No JVD, Thyromegaly Respiratory: positive: Chest non-tender. negative: Wheezes, Rales, Rhonchi Cardiovascular: positive: Regular rate & rhythm, No murmur, No gallop. negative : JVD present Peripheral Pulses: 1+ Radial (L), 1+ Dorsalis pedis (R), 1+ Posterior tibialis ( R) Abdomen: positive: Non-tender, No organomegaly, Nml bowel sounds, No distention. negative: Tenderness Back: positive: Nml inspection. negative: CVA tenderness (R), CVA tenderness (L ) Skin: positive: Color nml, No rash, Warm, Dry. negative: Skin rash Extremities: positive: Non-tender, Full ROM, Nml appearance, No pedal edema. negative: Calf tenderness Neurologic/Psychiatric: positive: Oriented x3, CN's nml (2-12), Motor nml, Sensation nml, Mood/affect nml Reflexes: Bicep (R): 1+, Knee (R): 1+ - Lab Results Fish Bones: 08/07/17 04:33 08/07/17 04:33 Other Labs: Lab Results x24hrs 12/08/07/17 08/07/17 Range/Units 04:33 04:33 04:33 WBC 6.5 (4.8-10.8) x10^3/uL RBC 3.61 L (4.70-6.10) 10^6/uL Hgb 11.8 L (14.0-18.0) g/dL Hct 34.9 L (42.0-52.0) % MCV 96.8 H (80.0-94.0) fL MCH 32.6 H (27.0-31.0) pg MCHC 33.7 (32.0-36.0) g/dL RDW 15.2 H (12.0-15.0) % Plt Count 73 L (130-450) 10^3/uL MPV 11.3 (7.4-11.4) fL Neut # 3.3 (1.5-6.6) 10^3/uL Lymph # 2.3 (1.5-3.5) 10^3/uL [place] # 0.3 (0.0-1.0) 10^3/uL Eos # 0.5 (0.0-0.7) 10^3/uL Baso # 0.1 (0.0-0.1) 10^3/uL Absolute Nucleated RBC 0.00 x10^3/uL Nucleated RBC % 0.0 /100WBC VBG pH (7.31-7.41) VBG pCO2 (41-51) mmHg VBG pO2 (25-47) mmHg VBG HCO3 (23-28) mmol/L VBG Total CO2 (24-29) mmol/L VBG O2 Saturation (60-80) % VBG Base Excess (-2 - +2) mmol/L Sodium 135 (135-145) mmol/L Potassium 4.5 (3.5-5.0) mmol/L Chloride 109 (101-111) mmol/L Carbon Dioxide 20 L (21-32) mmol/L Anion Gap 6.0 (6-13) BUN 19 (6-20) mg/dL Creatinine 0.8 (0.6-1.2) mg/dL Estimated GFR (MDRD) 102 (>89) Glucose 186 H (70-100) mg/dL Glycated Hemoglobin 11.6 H (4.6-6.2) % Estim Average Glucose 286 H (70-100) Calcium 8.8 (8.5-10.3) mg/dL Phosphorus 3.0 (2.5-4.6) mg/dL Magnesium 1.6 L (1.7-2.8) mg/dL Total Bilirubin 1.1 H (0.2-1.0) mg/dL AST 120 H (10-42) IU/L ALT 164 H (10-60) IU/L Alkaline Phosphatase 126 H (42-121) IU/L Total Protein 6.9 (6.7-8.2) g/dL Albumin 3.0 L (3.2-5.5) g/dL Globulin 3.9 (2.1-4.2) g/dL Albumin/Globulin Ratio 0.8 L (1.0-2.2) 08/06/17 08/06/17 08/06/17 Range/Units 21:05 19:05 18:10 WBC (4.8-10.8) x10^3/uL RBC (4.70-6.10) 10^6/uL Hgb (14.0-18.0) g/dL Hct (42.0-52.0) % MCV (80.0-94.0) fL MCH (27.0-31.0) pg MCHC (32.0-36.0) g/dL RDW (12.0-15.0) % Plt Count (130-450) 10^3/uL MPV (7.4-11.4) fL Neut # (1.5-6.6) 10^3/uL Lymph # (1.5-3.5) 10^3/uL [place] # (0.0-1.0) 10^3/uL Eos # (0.0-0.7) 10^3/uL Baso # (0.0-0.1) 10^3/uL Absolute Nucleated RBC x10^3/uL Nucleated RBC % /100WBC VBG pH (7.31-7.41) VBG pCO2 (41-51) mmHg VBG pO2 (25-47) mmHg VBG HCO3 (23-28) mmol/L VBG Total CO2 (24-29) mmol/L VBG O2 Saturation (60-80) % VBG Base Excess (-2 - +2) mmol/L Sodium 136 (135-145) mmol/L Potassium 3.4 L (3.5-5.0) mmol/L Chloride 105 (101-111) mmol/L Carbon Dioxide 22 (21-32) mmol/L Anion Gap 9.0 (6-13) BUN 18 (6-20) mg/dL Creatinine 0.8 (0.6-1.2) mg/dL Estimated GFR (MDRD) 102 (>89) Glucose 183 H 337 H 423 H (70-100) mg/dL Glycated Hemoglobin (4.6-6.2) % Estim Average Glucose (70-100) Calcium 9.3 (8.5-10.3) mg/dL Phosphorus (2.5-4.6) mg/dL Magnesium (1.7-2.8) mg/dL Total Bilirubin (0.2-1.0) mg/dL AST (10-42) IU/L ALT (10-60) IU/L Alkaline Phosphatase (42-121) IU/L Total Protein (6.7-8.2) g/dL Albumin (3.2-5.5) g/dL Globulin (2.1-4.2) g/dL Albumin/Globulin Ratio (1.0-2.2) 08/06/17 08/06/17 Range/Units 17:20 17:20 WBC (4.8-10.8) x10^3/uL RBC (4.70-6.10) 10^6/uL Hgb (14.0-18.0) g/dL Hct (42.0-52.0) % MCV (80.0-94.0) fL MCH (27.0-31.0) pg MCHC (32.0-36.0) g/dL RDW (12.0-15.0) % Plt Count (130-450) 10^3/uL MPV (7.4-11.4) fL Neut # (1.5-6.6) 10^3/uL Lymph # (1.5-3.5) 10^3/uL [place] # (0.0-1.0) 10^3/uL Eos # (0.0-0.7) 10^3/uL Baso # (0.0-0.1) 10^3/uL Absolute Nucleated RBC x10^3/uL Nucleated RBC % /100WBC VBG pH 7.332 (7.31-7.41) VBG pCO2 49.7 (41-51) mmHg VBG pO2 24.6 L (25-47) mmHg VBG HCO3 25.7 (23-28) mmol/L VBG Total CO2 27.3 (24-29) mmol/L VBG O2 Saturation 41.6 L (60-80) % VBG Base Excess -0.7 (-2 - +2) mmol/L Sodium 133 L (135-145) mmol/L Potassium 3.9 (3.5-5.0) mmol/L Chloride 96 L (101-111) mmol/L Carbon Dioxide 23 (21-32) mmol/L Anion Gap 14.0 H (6-13) BUN 21 H (6-20) mg/dL Creatinine 1.0 (0.6-1.2) mg/dL Estimated GFR (MDRD) 78 L (>89) Glucose 556 H* (70-100) mg/dL Glycated Hemoglobin (4.6-6.2) % Estim Average Glucose (70-100) Calcium 9.9 (8.5-10.3) mg/dL Phosphorus (2.5-4.6) mg/dL Magnesium (1.7-2.8) mg/dL Total Bilirubin (0.2-1.0) mg/dL AST (10-42) IU/L ALT (10-60) IU/L Alkaline Phosphatase (42-121) IU/L Total Protein (6.7-8.2) g/dL Albumin (3.2-5.5) g/dL Globulin (2.1-4.2) g/dL Albumin/Globulin Ratio (1.0-2.2) Assessment/Plan - Problem List (1) Hyperosmolar non-ketotic state in patient with type 2 diabetes mellitus Impression: Pt has improved significantly overnight. Insulin drip has been stopped. BS this morning was 184. Sodium and potassium have been corrected. Will transfer pt to the floor today in anticipation of discharge home tomorrow. Pt was found to be hypomagnesemic this morning, will correct with oral and IV supplementation. (2) Anxiety and depression Impression: Pt started on zoloft, no significant difference after 1 day (3) Dehydration Impression: Corrected with 3 L of Normal saline (4) Thrombocytopenia Impression: Chronic, no history of spontaneous bleeding. Platelet count up today despite dilution from rehydration
[2017-08-07] MEDS ORDERED: INSULIN GLARGINE 300 UNIT/3 ML PEN SUBQ SCH (16:58)
[2017-08-07] MEDS ORDERED: INSULIN REGULAR HUMAN 100 UNIT/1 ML 10 ML MDV SUBQ ONE (16:58)
[2017-08-07] MEDS ORDERED: INSULIN ASPART 300 UNIT/3 ML PEN SUBQ SCH (17:00)
[2017-08-07 20:34] LABS: BILIRUBIN,URINE NEGATIVE (NEGATIVE)
[2017-08-07 20:44] LABS: UA CHARGE (STRIP ONLY) YES; UR CULTURE IF IND NOT INDICATED
[2017-08-08] MEDS: NS W/20 MEQ KCL 1,000 ML IV SCH ×2 (00:18→06:50)
[2017-08-08] MEDS: SODIUM CHLORIDE FLUSH 0.9% 10 ML SYRINGE IVP SCH (06:13)
[2017-08-08] MEDS: LEVOTHYROXINE 75 MCG TABLET PO SCH (06:49)
--- NOTE | 2017-08-08 07:42 | Discharge Plan ---
Discharge Plan Disposition: 01 Home, Self Care Condition: Good Diet: Diabetic Activity Restrictions: No Restrictions Shower Restrictions: No Driving Restrictions: No No Smoking: If you smoke, Please STOP! Call for help.
--- NOTE | 2017-08-08 07:44 | DISCHARGE SUMMARY ---
Discharge Summary Admit Date: 08/06/17 Discharge Date: 08/08/17 Discharging Provider: Gretchen Ding DO Primary Care Provider: Kirk Carney Condition at Discharge: Good Discharge Disposition: 01 Home, Self Care - DIAGNOSES Admission Diagnoses: Hyperosmolar nonketotic state in a patient with type 2 diabetes mellitus Anxiety and Depression Dehydration Thrombocytopenia, chronic Discharge Diagnoses with Status of Each Condition: 1) Hyperosmolar nonketotic state in a patient with type 2 diabetes mellitus, resolved. I have spent over 30 minutes in patient education, emphasizing the importance of strict glucose control and the consequences of failure. 2) Anxiety and Depression. Somewhat situational as the patient is newly homeless , however there appears to be an underlying component that was present before he became homeless. Pt has been started on Zoloft, will discharge home on 100mg daily. 3) Dehydration- corrected. 4) Thrombocytopenia, chronic. Improved with better glucose control and rehydration. - HPI History of Present Illness: Mr Seth Nicholson is a pleasant 52 year old man who has a history of insulin dependant diabetes, hypothyroidism, and hepatitis C. He and his have been experiencing financial difficulties and have been homeless for the last several days. They have been eating at the [employer] which has food for the homeless but most of the foods are high in sugar according to Mr Nicholson; he has not taken his metformin for over 2 months and has not been testing his blood sugars due to a lack of lancets. He also relates that his insulin syringes are at a friend's house and that he has no way to get them but did take insulin the day prior to admission. He had been experiencing increased thirst and urination as well as nausea and vomiting for the last few days prior to admission, which prompted him to come to the ED; this is now resolved. - HOSPITAL COURSE Hospital Course: The patient was admitted to the ICU and placed on an insulin drip. He was rehydrated and his electrolytes were corrected. He was transferred to the floor and monitored;his blood sugars have remained around 180. His weakness on admission has resolved and his appetite has improved as well. There have been no new problems during this admission. - ALLERGIES Allergies/Adverse Reactions: Allergies Allergy/AdvReac Type Severity Reaction Status Date / Time No Known Drug Allergies Allergy Verified 08/06/17 14:26 - MEDICATIONS Home Medications: Ambulatory Orders Medication Instructions Recorded Confirmed metFORMIN [Glucophage] 500 mg PO BIDWM 03/15/17 08/06/17 Insulin NPH Hum/Reg Insulin Hm 40 units SQ BID 08/06/17 08/06/17 [Novolin 70-30 100 Unit/ml Vial] Levothyroxine Sodium [Synthroid] 150 mcg PO QDAC 08/06/17 08/06/17 - PHYSICAL EXAM AT DISCHARGE General Appearance: positive: No acute distress, Alert, Anxious (mildly) Eyes Bilateral: positive: Normal inspection, PERRL, EOMI ENT: positive: ENT inspection nml, Pharynx nml, No signs of dehydration. negative: Oral lesions, Dry mucous membranes Neck: positive: Nml inspection, Thyroid nml, No JVD, Trachea midline. negative : Thyromegaly Respiratory: positive: Chest non-tender, No respiratory distress, Breath sounds nml. negative: Wheezes, Rales, Rhonchi Cardiovascular: positive: Regular rate & rhythm, No murmur, No gallop. negative : Extrasystoles Peripheral Pulses: positive: 1+ Abdomen: positive: Non-tender, No organomegaly, Nml bowel sounds, No distention. negative: Tenderness Back: positive: Nml inspection. negative: CVA tenderness (R), CVA tenderness (L ) Skin: positive: Color nml, No rash, Warm, Dry. negative: Cyanosis Extremities: positive: Non-tender, Full ROM, Nml appearance, No pedal edema Neurologic/Psychiatric: positive: Oriented x3, CN's nml (2-12), Motor nml, Sensation nml, Depressed mood/affect (mildly) - LABS Result Diagrams: 08/07/17 04:33 08/07/17 04:33 - TIME SPENT Time Spent in Discharge (Minutes): 45
[2017-08-08 07:59] LABS: CALCIUM 8.7 mg/dL (8.5-10.3); POTASSIUM 4.3 mmol/L (3.5-5.0)
[2017-08-08 08:15] VITALS: BP 135/81
[2017-08-08] MEDS: SERTRALINE 50 MG TABLET PO SCH (08:34)
[2017-08-08] MEDS: FAMOTIDINE 20 MG/50 ML 50 ML IV SCH (08:34)
[2017-08-08] MEDS: INSULIN ASPART 300 UNIT/3 ML PEN SUBQ SCH (08:38)
--- NOTE | 2017-08-08 09:20 | Discharge Plan ---
Discharge Plan Disposition: 01 Home, Self Care Condition: Good Prescriptions: Lancets/Blood Glucose Strips [Fora [id number] Strp-Lnct] 1 each MC BID # 100 combo..pkg Sertraline HCl 100 mg PO DAILY #30 tablet Activity Restrictions: No Restrictions Shower Restrictions: No Driving Restrictions: No No Smoking: If you smoke, Please STOP! Call for help.
== END 2017-08-08 11:00 | disposition home or self-care (01) | DRG 639 ==
LOC: EDUNIT# → EDBD → ED 14:20 → ICU 16:47 → MS2 08-07 14:14
PROVIDERS: ADMIT Hospitalist; ATTEND Hospitalist
DX: E11.00 Type 2 diabetes mellitus with hyperosmolarity without nonketotic hyperglycemic-hyperosmolar coma (NKHHC) (principal); T38.3X6A Underdosing of insulin and oral hypoglycemic [antidiabetic] drugs, initial encounter; E83.42 Hypomagnesemia; E86.0 Dehydration; F41.9 Anxiety disorder, unspecified; F43.21 Adjustment disorder with depressed mood; D69.6 Thrombocytopenia, unspecified; E03.9 Hypothyroidism, unspecified; B19.20 Unspecified viral hepatitis C without hepatic coma; E11.42 Type 2 diabetes mellitus with diabetic polyneuropathy; F17.210 Nicotine dependence, cigarettes, uncomplicated; Z79.4 Long term (current) use of insulin; Z59.0 Homelessness; Z91.19 Patient's noncompliance with other medical treatment and regimen; Z71.3 Dietary counseling and surveillance
CPT/HCPCS: 36415; 80048; 80053; 81001; 81003; 82009; 82803; 82947; 83036; 83605; 83690; 83735; 84100; 84484; 85025; 87086; 87150; 96360; 96361; 99283; 99284; 99285

== ENCOUNTER 2017-08-18 10:10 | Emergency (ER) | payer MEDICAID ==
[2017-08-18 10:21] VITALS: BP 121/79
--- NOTE | 2017-08-18 11:02 | ED Physician Documentation ---
PD HPI URI - Stated complaint Stated Complaint: CONGESTION,MED REFILL - Chief complaint Chief Complaint: Resp - History obtained from History obtained from: Patient - History of Present Illness Timing - onset: How many weeks ago (had cough for couple weeks. Admitted recently for high sugars and pneumonia. Discharged a week ago and still with cough, increased recently. Homeless but staying at residential.) Timing details: Gradual onset, Still present Associated symptoms: Productive cough. No: Fever, Chills, Hemoptysis, Chest pain, Bilateral edema Contributing factors: No: Sick contact, Travel, Immunocompromised Improves by: Rest Worsened by: Activity Recently seen: Emergency Dept, Admitted (pneumonia - he says discharged without Rx for his Metformin, but has Rxs for other meds. No abx on discharge.) Review of Systems Constitutional: denies: Fever, Chills, Myalgias Nose: reports: Congestion. denies: Rhinorrhea / runny nose Throat: denies: Sore throat Respiratory: reports: Cough. denies: Dyspnea GI: denies: Nausea, Vomiting, Diarrhea : denies: Dysuria, Frequency Skin: denies: Rash, Lesions PD PAST MEDICAL HISTORY - Past Medical History Cardiovascular: Hypertension, High cholesterol Respiratory: None Neuro: Peripheral neuropathy Endocrine/Autoimmune: Type 2 diabetes, HyPOthyroidism GI: GERD, Hepatitis : Frequency HEENT: None Psych: Depression, Anxiety Musculoskeletal: Chronic back pain Derm: None - Past Surgical History Past Surgical History: No - Present Medications Home Medications: Ambulatory Orders Medication Instructions Recorded Confirmed metFORMIN [Glucophage] 500 mg PO BIDWM 03/15/17 08/18/17 Insulin NPH Hum/Reg Insulin Hm 40 units SQ BID 08/06/17 08/18/17 [Novolin 70-30 100 Unit/ml Vial] Levothyroxine Sodium [Synthroid] 150 mcg PO QDAC 08/06/17 08/18/17 Lancets/Blood Glucose Strips [Fora 1 each MC BID #100 combo..pkg 08/08/17 [id number] Strp-Lnct] Sertraline HCl 100 mg PO DAILY #30 tablet 08/08/17 08/18/17 Albuterol Sulf [Ventolin Hfa 1 - 2 puffs INH Q4HR PRN #1 inhaler 08/18/17 Inhaler] Benzonatate [Tessalon] 100 mg PO TID PRN #25 capsule 08/18/17 Doxycycline Monohydrate 100 mg PO BID #14 tablet 08/18/17 guaiFENesin/CODEINE [Robitussin AC] 10 ml PO Q6H PRN #240 ml 08/18/17 metFORMIN [Glucophage] 500 mg PO BIDWM #60 tablet 08/18/17 - Allergies Allergies/Adverse Reactions: Allergies Allergy/AdvReac Type Severity Reaction Status Date / Time No Known Drug Allergies Allergy Verified 08/06/17 14:26 - Social History Does the pt smoke?: Yes Smoking Status: Current every day smoker Does the pt drink ETOH?: No Does the pt have substance abuse?: No - Immunizations Immunizations are current?: Yes - POLST Patient has POLST: Yes POLST Status: Full Code PD ED PE NORMAL - Vitals Vital signs reviewed: Yes - General General: Alert and oriented X 3, No acute distress, Well developed/nourished - HEENT HEENT: Pharynx benign - Neck Neck: Supple, no meningeal sign, No adenopathy - Cardiac Cardiac: RRR, No murmur - Respiratory Respiratory: No respiratory distress. No: Clear bilaterally (mild wheezing diffusely. No coarse sounds. ) - Abdomen Abdomen: Soft, Non tender - Derm Derm: Normal color, Warm and dry - Extremities Extremities: No edema, No calf tenderness / cord Results - Vitals Vitals: Oxygen O2 Source Room air - Rads (name of study) chest Radiology: Prelim report reviewed (lingular airspace density c/w pneumonia) PD MEDICAL DECISION MAKING - ED course Complexity details: considered differential (has URI symptoms and CXR showing some patchiness, could be resolving or persistent. Also had not gotten Rx for Metformin when discharged from hospital recently. ), d/w patient Departure - Departure Disposition: 01 Home, Self Care Clinical Impression: Pneumonia Qualifiers: Pneumonia type: due to unspecified organism Laterality: left Lung location: lower lobe of lung Qualified Code(s): J18.1 - Lobar pneumonia, unspecified organism Condition: Stable Record reviewed to determine appropriate education?: Yes Instructions: ED Pneumonia Adult Prescriptions: Albuterol Sulf [Ventolin Hfa Inhaler] 1 - 2 puffs INH Q4HR PRN #1 inhaler PRN Reason: Shortness Of Air/Wheezing Benzonatate [Tessalon] 100 mg PO TID PRN #25 capsule PRN Reason: Cough Doxycycline Monohydrate 100 mg PO BID #14 tablet guaiFENesin/CODEINE [Robitussin AC] 10 ml PO Q6H PRN #240 ml PRN Reason: Cough metFORMIN [Glucophage] 500 mg PO BIDWM #60 tablet Comments: Continue usual medications. I did write a prescription for your metformin as well. For the cough, the x-ray does show mild infiltrate suggesting early pneumonia. Use an albuterol inhaler 2 puffs 4 times a day and this will be similar to the nebulizer you had here. Use cough medicine of codeine cough medicine and Tessalon for the symptoms. Doxycycline antibiotic for the infection. Recheck if not improving over the next few days and return sooner if worsening. Discharge Date/Time: 08/18/17 13:01
[2017-08-18] MEDS ORDERED: BENZONATATE 100 MG CAPSULE PO STA (11:38)
[2017-08-18] MEDS ORDERED: DOXYCYCLINE 100 MG TABLET PO STA (11:38)
[2017-08-18] MEDS ORDERED: ALBUTEROL NEB 2.5 MG/3 ML INH STA (11:38)
--- NOTE | 2017-08-18 12:55 | XRAY Report ---
EXAM: CHEST RADIOGRAPHY EXAM DATE: 08/18/2017 12:35 PM. CLINICAL HISTORY: Cough for 3 days. COMPARISON: Chest x-ray 05/10/2017. TECHNIQUE: 2 views. FINDINGS: Lungs/Pleura: Dense lingular airspace disease. Mediastinum: Heart and mediastinal contours are unremarkable. Other: None. IMPRESSION: Dense lingular airspace disease compatible with pneumonia. [facility] Referring Provider Line: [phone] SITE ID: [id number]
== END 2017-08-18 13:01 | disposition home or self-care (01) ==
LOC: ED 10:10
DX: J18.9 Pneumonia, unspecified organism (principal); I10 Essential (primary) hypertension; E11.9 Type 2 diabetes mellitus without complications; E78.00 Pure hypercholesterolemia, unspecified; E03.9 Hypothyroidism, unspecified; F17.200 Nicotine dependence, unspecified, uncomplicated; Z79.4 Long term (current) use of insulin; Z59.0 Homelessness
CPT/HCPCS: 71020; 94640; 94664; 99283; 99284; A9270; J7613

== ENCOUNTER 2017-08-20 20:46 | Outpatient (CLI) | payer MEDICAID | END 2017-08-20 20:47 | disposition critical access hospital (66) | LOC: EMS 20:46 | PROVIDERS: ATTEND Surgery | DX: R73.09 Other abnormal glucose (principal); R11.2 Nausea with vomiting, unspecified | CPT/HCPCS: A0425; A0427 ==

== ENCOUNTER 2017-08-20 21:01 | Emergency (ER) | payer MEDICAID ==
[2017-08-20] MEDS ORDERED: INSULIN REGULAR HUMAN 100 UNIT/1 ML 10 ML MDV IVP STA (21:13)
[2017-08-20] MEDS ORDERED: SODIUM CHLORIDE 0.9% 1,000 ML IV ONE ×2 (21:13→22:06)
[2017-08-20 21:35] LABS: BILIRUBIN,URINE NEGATIVE (NEGATIVE); GLUCOSE, URINE (UA) >=1000 mg/dL (NEGATIVE); KETONES,URINE (UA) NEGATIVE (NEGATIVE); LEUKOCYTE ESTERASE, URINE NEGATIVE (NEGATIVE); NITRITE,URINE NEGATIVE (NEGATIVE); OCCULT BLOOD,URINE NEGATIVE (NEGATIVE); PH,URINE 6.5 PH (5.0-7.5); PROTEIN,URINE NEGATIVE (NEGATIVE); UROBILINOGEN,URINE 0.2 (NORMAL) E.U./dL (NORMAL)
[2017-08-20 21:37] LABS: CLARITY,URINE CLEAR (CLEAR)
[2017-08-20 21:42] LABS: BASOPHILS % (AUTO) 0.8 %; EOSINOPHILS # (AUTO) 0.2 10^3/uL (0.0-0.7); EOSINOPHILS % (AUTO) 3.9 %; HGB - HEMOGLOBIN 12.4 g/dL (14.0-18.0); LYMPHOCYTES # (AUTO) 1.8 10^3/uL (1.5-3.5); LYMPHOCYTES % (AUTO) 37.9 %; MEAN CORPUSCULAR HEMOGLOBIN 31.9 pg (27.0-31.0); MEAN CORPUSCULAR HGB CONC 32.5 g/dL (32.0-36.0); MEAN CORPUSCULAR VOLUME 98.3 fL (80.0-94.0); MEAN PLATELET VOLUME 10.5 fL (7.4-11.4); MONOCYTES # (AUTO) 0.1 10^3/uL (0.0-1.0); NEUTROPHILS # (AUTO) 2.6 10^3/uL (1.5-6.6); NEUTROPHILS % (AUTO) 54.4 %; PLT - PLATELET COUNT 66 10^3/uL (130-450); RED BLOOD COUNT 3.87 10^6/uL (4.70-6.10); RED CELL DISTRIBUTION WIDTH 14.8 % (12.0-15.0); WHITE BLOOD COUNT 4.8 x10^3/uL (4.8-10.8)
[2017-08-20 21:43] LABS: VBG BASE EXCESS 1.2 mmol/L (-2 - +2); VBG PCO2 42.3 mmHg (41-51); VBG PH 7.407 (7.31-7.41); VBG PO2 50.7 mmHg (25-47); VBG TOTAL CO2 27.3 mmol/L (24-29)
[2017-08-20 21:50] LABS: KETONES, SERUM (ACETEST) NEGATIVE (NEGATIVE)
[2017-08-20 21:58] LABS: PLATELET ESTIMATE, MANUAL DECREASED (<130,000) (NORMAL); PLATELET MORPHOLOGY NORMAL APPEARANCE (NORMAL); RBC MORPHOLOGY (MULTIPLE) NORMAL APPEARANCE (NORMAL)
[2017-08-20 22:02] LABS: ALBUMIN 3.3 g/dL (3.2-5.5); ALBUMIN/GLOBULIN RATIO 0.7 (1.0-2.2); ALKALINE PHOSPHATASE 127 IU/L (42-121); ALT ALANINE AMINOTRANSFERASE 45 IU/L (10-60); AST ASPARTATE AMINOTRANSFERASE 37 IU/L (10-42); BILIRUBIN,TOTAL 0.8 mg/dL (0.2-1.0); BUN - BLOOD UREA NITROGEN 16 mg/dL (6-20); CALCIUM 9.5 mg/dL (8.5-10.3); CARBON DIOXIDE - CO2 25 mmol/L (21-32); CHLORIDE 95 mmol/L (101-111); GFR - MDRD 78 (>89); LIPASE 65 U/L (22-51); MAGNESIUM 1.5 mg/dL (1.7-2.8); PHOSPHORUS 3.4 mg/dL (2.5-4.6); SODIUM 132 mmol/L (135-145); TOTAL PROTEIN 7.8 g/dL (6.7-8.2)
[2017-08-20 22:03] LABS: GLUCOSE 606 mg/dL (70-100)
--- NOTE | 2017-08-20 22:13 | XRAY Report ---
EXAM: CHEST RADIOGRAPHY EXAM DATE: 08/20/2017 09:48 PM. CLINICAL HISTORY: Cough and fever. COMPARISON: 08/18/2017. TECHNIQUE: 1 view. FINDINGS: Lungs/Pleura: No focal opacities evident. Clearing of previous lingular infiltrate. No pleural effusi on. No pneumothorax. Mediastinum: Within exam limitations, the cardiomediastinal contour is normal. Other: No bony abnormality identified. IMPRESSION: Normal single view chest. [facility] Referring Provider Line: [phone] SITE ID: [id number]
--- NOTE | 2017-08-20 23:33 | ED Physician Documentation ---
History of Present Illness - Stated complaint Stated Complaint: HIGH BLOOD SUGAR - Chief complaint Chief Complaint: General - History obtained from History obtained from: Patient, EMS - History of Present Illness Timing: Today - Additonal information Additional information: Patient is a 52 year old homeless male with a history of diabetes who is brought to the emergency department for elevated blood sugar and not feeling well. Patient states that the has not had his insulin. Patient also reports that he was recently diagnosed with pneumonia but was unable to fill his prescriptions. Review of Systems Constitutional: reports: Chills, Myalgias. denies: Fever Eyes: denies: Decreased vision, Photophobia Ears: reports: Reviewed and negative Nose: reports: Congestion Throat: denies: Oral lesions / sores, Sore throat Cardiac: denies: Chest pain / pressure, Palpitations Respiratory: reports: Cough. denies: Wheezing GI: denies: Nausea, Vomiting : reports: Frequency Skin: denies: Rash, Lesions, Abrasion (s) Musculoskeletal: reports: Reviewed and negative Neurologic: reports: Generalized weakness. denies: Focal weakness, Numbness, Near syncope, Syncope, Headache Endocrine: reports: Polydypsia, Polyuria PD PAST MEDICAL HISTORY - Past Medical History Cardiovascular: Hypertension, High cholesterol Respiratory: None Neuro: Peripheral neuropathy Endocrine/Autoimmune: Type 2 diabetes, HyPOthyroidism GI: GERD, Hepatitis : Frequency HEENT: None Psych: Depression, Anxiety Musculoskeletal: Chronic back pain Derm: None - Past Surgical History Past Surgical History: No - Present Medications Home Medications: Ambulatory Orders Medication Instructions Recorded Confirmed metFORMIN [Glucophage] 500 mg PO BIDWM 03/15/17 08/20/17 Insulin NPH Hum/Reg Insulin Hm 40 units SQ BID 08/06/17 08/20/17 [Novolin 70-30 100 Unit/ml Vial] Levothyroxine Sodium [Synthroid] 150 mcg PO QDAC 08/06/17 08/20/17 Lancets/Blood Glucose Strips [Fora 1 each MC BID #100 combo..pkg 08/08/17 [id number] Strp-Lnct] Sertraline HCl 100 mg PO DAILY #30 tablet 08/08/17 08/20/17 Albuterol Sulf [Ventolin Hfa 1 - 2 puffs INH Q4HR PRN #1 inhaler 08/18/17 Inhaler] Benzonatate [Tessalon] 100 mg PO TID PRN #25 capsule 08/18/17 08/20/17 Doxycycline Monohydrate 100 mg PO BID #14 tablet 08/18/17 guaiFENesin/CODEINE [Robitussin AC] 10 ml PO Q6H PRN #240 ml 08/18/17 08/20/17 metFORMIN [Glucophage] 500 mg PO BIDWM #60 tablet 08/18/17 - Allergies Allergies/Adverse Reactions: Allergies Allergy/AdvReac Type Severity Reaction Status Date / Time No Known Drug Allergies Allergy Verified 08/06/17 14:26 - Social History Does the pt smoke?: Yes Smoking Status: Current every day smoker Does the pt drink ETOH?: No Does the pt have substance abuse?: No - Immunizations Immunizations are current?: Yes - POLST Patient has POLST: Yes POLST Status: Full Code PD ED PE NORMAL - Vitals Vital signs reviewed: Yes - General General: Alert and oriented X 3 - HEENT HEENT: Atraumatic, PERRL - Neck Neck: Supple, no meningeal sign, No JVD - Cardiac Cardiac: RRR, No murmur - Respiratory Respiratory: No respiratory distress - Abdomen Abdomen: Soft, Non tender, Non distended - Derm Derm: Normal color, Warm and dry, No rash - Extremities Extremities: No deformity, Normal ROM s pain, No edema - Neuro Neuro: Alert and oriented X 3, No motor deficit, No sensory deficit, Normal speech Eye Opening: Spontaneous Motor: Obeys Commands Verbal: Oriented GCS Score: 15 - Psych Psych: Normal mood PD ED PE EXPANDED - General General: Alert - HEENT HEENT: Dry mucous membranes Results - Vitals Vitals: Vital Signs - 24 hr 08/20/17 23:39 Heart Rate 74 Respiratory 18 Rate Blood Pressure 148/72 H O2 Saturation 98 Oxygen O2 Source Room air - Labs Labs: Laboratory Tests 08/20/17 08/20/17 08/20/17 21:24 21:35 21:35 WBC 4.8 RBC 3.87 L Hgb 12.4 L Hct 38.1 L MCV 98.3 H MCH 31.9 H MCHC 32.5 RDW 14.8 Plt Count 66 L MPV 10.5 Neut # 2.6 Lymph # 1.8 [place] # 0.1 Eos # 0.2 Baso # 0.0 Absolute Nucleated RBC 0.00 Nucleated RBC % 0.1 Manual Slide Review Indicated Platelet Estimate DECREASED (<130,000) Platelet Morphology NORMAL APPEARANCE RBC Morph Micro Appear NORMAL APPEARANCE VBG pH VBG pCO2 VBG pO2 VBG HCO3 VBG Total CO2 VBG O2 Saturation VBG Base Excess Sodium 132 L Potassium 3.8 Chloride 95 L Carbon Dioxide 25 Anion Gap 12.0 BUN 16 Creatinine 1.0 Estimated GFR (MDRD) 78 L Glucose 606 H* Lactic Acid Calcium 9.5 Phosphorus 3.4 Magnesium 1.5 L Total Bilirubin 0.8 AST 37 ALT 45 Alkaline Phosphatase 127 H Total Protein 7.8 Albumin 3.3 Globulin 4.5 H Albumin/Globulin Ratio 0.7 L Lipase 65 H Urine Color YELLOW Urine Clarity CLEAR Urine pH 6.5 Ur Specific [place] <=1.005 Urine Protein NEGATIVE Urine Glucose (UA) >=1000 H Urine Ketones NEGATIVE Urine Occult Blood NEGATIVE Urine Nitrite NEGATIVE Urine Bilirubin NEGATIVE Urine Urobilinogen 0.2 (NORMAL) Ur Leukocyte Esterase NEGATIVE Ur Microscopic Review NOT INDICATED Urine Culture Comments NOT INDICATED Serum Ketones NEGATIVE 08/20/17 08/20/17 21:35 21:35 WBC RBC Hgb Hct MCV MCH MCHC RDW Plt Count MPV Neut # Lymph # [place] # Eos # Baso # Absolute Nucleated RBC Nucleated RBC % Manual Slide Review Platelet Estimate Platelet Morphology RBC Morph Micro Appear VBG pH 7.407 VBG pCO2 42.3 VBG pO2 50.7 H VBG HCO3 26.0 VBG Total CO2 27.3 VBG O2 Saturation 86.2 H VBG Base Excess 1.2 Sodium Potassium Chloride Carbon Dioxide Anion Gap BUN Creatinine Estimated GFR (MDRD) Glucose Lactic Acid 2.4 H Calcium Phosphorus Magnesium Total Bilirubin AST ALT Alkaline Phosphatase Total Protein Albumin Globulin Albumin/Globulin Ratio Lipase Urine Color Urine Clarity Urine pH Ur Specific [place] Urine Protein Urine Glucose (UA) Urine Ketones Urine Occult Blood Urine Nitrite Urine Bilirubin Urine Urobilinogen Ur Leukocyte Esterase Ur Microscopic Review Urine Culture Comments Serum Ketones PD MEDICAL DECISION MAKING - ED course Complexity details: reviewed old records, reviewed results, re-evaluated patient , considered differential, d/w patient, d/w family ED course: Patient was seen and examined at bedside. patient was in no acute distress. bedside blood glucose just read as high. IV access was gained and labs were drawn. Patient was treated with two liter bolus and IV insulin. Patient's labs revealed no ketones or other signs of dka. chest e-xray was performed and within normal limits. Patient's blood sugar improved to 285. Patient stated he was feeling better and did not want to wait for other repeat labs. patient required no further work up and was stable for discharge with outpatient follow up. Departure - Departure Disposition: Home, Self Care Clinical Impression: Hyperglycemia Condition: Good Instructions: ED Hyperglycemia Diabetic Follow-Up: primary,care provider [Other] - Within 3 Days Comments: Your diagnostics today, aside from the blood glucose were within normal limits. Your repeat blood sugar was well improved. You should get back on your diabetes regiment and be careful with your diet. You should follow up with the clinic. You may return to the emergency department at any time for new, worsening or uncontrollable symptoms. Discharge Date/Time: 08/20/17 23:51
[2017-08-20 23:39] VITALS: BP 148/72
== END 2017-08-20 23:51 | disposition home or self-care (01) ==
LOC: EDUNIT# → ED 21:01
DX: E11.65 Type 2 diabetes mellitus with hyperglycemia (principal); Z91.14 Patient's other noncompliance with medication regimen; K75.9 Inflammatory liver disease, unspecified; I10 Essential (primary) hypertension; E78.00 Pure hypercholesterolemia, unspecified; F17.200 Nicotine dependence, unspecified, uncomplicated
CPT/HCPCS: 36415; 71010; 80053; 81003; 82009; 82803; 83605; 83690; 83735; 84100; 85025; 96360; 96361; 99283; 99284; J1815; 81001; 87086

== ENCOUNTER 2017-10-29 14:37 | Outpatient (CLI) | payer MEDICAID | END 2017-10-29 14:38 | disposition critical access hospital (66) | LOC: EMS 14:37 | PROVIDERS: ATTEND Surgery | DX: R73.09 Other abnormal glucose (principal); R19.7 Diarrhea, unspecified; R11.10 Vomiting, unspecified | CPT/HCPCS: A0425; A0427 ==

== ENCOUNTER 2017-10-29 14:59 | Emergency (ER) | payer MEDICAID ==
[2017-10-29] MEDS ORDERED: SODIUM CHLORIDE 0.9% 1,000 ML IV ONE ×3 (15:33→16:45)
--- NOTE | 2017-10-29 15:36 | ED Physician Documentation ---
History of Present Illness - Stated complaint Stated Complaint: ELEVATED BS - Chief complaint Chief Complaint: General - History obtained from History obtained from: Patient, Family, EMS - History of Present Illness Timing: Yesterday Pain level max: 7 Pain level now: 5 Improved by: nothing Worsened by: nothing - Additonal information Additional information: Patient states vomiting and diarrhea since yesterday. Is a diabetic and blood sugar read "high" today. Is supposed to be on novolog 80 units, takes 45 units. Takes metform and levothyroxine. No fevers. Given IVF with EMS COPY CHIEF. Review of Systems Ten Systems: 10 systems reviewed and negative Constitutional: denies: Fever, Chills Ears: denies: Ear pain Nose: denies: Rhinorrhea / runny nose, Congestion Cardiac: denies: Chest pain / pressure Respiratory: denies: Cough GI: reports: Vomiting, Diarrhea : denies: Dysuria, Frequency, Hesitancy Skin: denies: Rash Musculoskeletal: denies: Neck pain, Back pain Neurologic: denies: Headache PD PAST MEDICAL HISTORY - Past Medical History Cardiovascular: Hypertension, High cholesterol Respiratory: None Neuro: Peripheral neuropathy Endocrine/Autoimmune: Type 2 diabetes, HyPOthyroidism GI: GERD, Hepatitis : Frequency HEENT: None Psych: Depression, Anxiety Musculoskeletal: Chronic back pain Derm: None - Past Surgical History Past Surgical History: No - Present Medications Home Medications: Ambulatory Orders Medication Instructions Recorded Confirmed metFORMIN [Glucophage] 500 mg PO BIDWM 03/15/17 08/20/17 Insulin NPH Hum/Reg Insulin Hm 40 units SQ BID 08/06/17 08/20/17 [Novolin 70-30 100 Unit/ml Vial] Levothyroxine Sodium [Synthroid] 150 mcg PO QDAC 08/06/17 08/20/17 Lancets/Blood Glucose Strips [Fora 1 each MC BID #100 combo..pkg 08/08/17 [id number] Strp-Lnct] Albuterol Sulf [Ventolin Hfa 1 - 2 puffs INH Q4HR PRN #1 inhaler 08/18/17 Inhaler] Benzonatate [Tessalon] 100 mg PO TID PRN #25 capsule 08/18/17 10/29/17 metFORMIN [Glucophage] 500 mg PO BIDWM #60 tablet 08/18/17 - Allergies Allergies/Adverse Reactions: Allergies Allergy/AdvReac Type Severity Reaction Status Date / Time No Known Drug Allergies Allergy Verified 10/29/17 15:22 - Social History Does the pt smoke?: Yes Smoking Status: Current every day smoker Does the pt drink ETOH?: No Does the pt have substance abuse?: No - Immunizations Immunizations are current?: Yes - POLST Patient has POLST: Yes POLST Status: Full Code PD ED PE NORMAL - Vitals Vital signs reviewed: Yes - General General: Alert and oriented X 3, No acute distress - HEENT HEENT: Other (dry lips) - Neck Neck: Supple, no meningeal sign - Cardiac Cardiac: RRR - Respiratory Respiratory: No respiratory distress, Clear bilaterally - Abdomen Abdomen: Soft, Non tender, Non distended - Back Back: No CVA TTP - Derm Derm: Warm and dry, No rash - Extremities Extremities: No edema - Neuro Neuro: Alert and oriented X 3 - Psych Psych: Normal mood, Normal affect Results - Vitals Vitals: Vital Signs - 24 hr 10/29/17 10/29/17 10/29/17 15:16 17:36 18:40 Temperature 36.8 C 37 C 36 C L Heart Rate 86 71 90 Respiratory 15 14 18 Rate Blood Pressure 130/79 130/101 H 157/122 H O2 Saturation 96 99 99 Oxygen O2 Source Room air - Labs Labs: Laboratory Tests 10/29/17 10/29/17 10/29/17 15:36 15:36 15:36 WBC 6.3 RBC 3.84 L Hgb 12.2 L Hct 37.3 L MCV 97.2 H MCH 31.9 H MCHC 32.8 RDW 14.1 Plt Count 64 L MPV 11.7 H Neut # 4.0 Lymph # 1.6 [place] # 0.4 Eos # 0.3 Baso # 0.1 Absolute Nucleated RBC 0.00 Nucleated RBC % 0.0 VBG pH 7.389 VBG pCO2 43.4 VBG pO2 42.4 VBG HCO3 25.6 VBG Total CO2 27.0 VBG O2 Saturation 78.5 VBG Base Excess 0.4 Sodium 127 L Potassium 4.6 Chloride 94 L Carbon Dioxide 23 Anion Gap 10.0 BUN 22 H Creatinine 1.3 H Estimated GFR (MDRD) 58 L Glucose 679 H* Calcium 9.7 Total Bilirubin 1.0 AST 84 H ALT 97 H Alkaline Phosphatase 126 H Total Protein 7.4 Albumin 3.4 Globulin 4.0 Albumin/Globulin Ratio 0.9 L Lipase 59 H Urine Color Urine Clarity Urine pH Ur Specific [place] Urine Protein Urine Glucose (UA) Urine Ketones Urine Occult Blood Urine Nitrite Urine Bilirubin Urine Urobilinogen Ur Leukocyte Esterase Ur Microscopic Review Urine Culture Comments Serum Ketones NEGATIVE 10/29/17 16:55 WBC RBC Hgb Hct MCV MCH MCHC RDW Plt Count MPV Neut # Lymph # [place] # Eos # Baso # Absolute Nucleated RBC Nucleated RBC % VBG pH VBG pCO2 VBG pO2 VBG HCO3 VBG Total CO2 VBG O2 Saturation VBG Base Excess Sodium Potassium Chloride Carbon Dioxide Anion Gap BUN Creatinine Estimated GFR (MDRD) Glucose Calcium Total Bilirubin AST ALT Alkaline Phosphatase Total Protein Albumin Globulin Albumin/Globulin Ratio Lipase Urine Color YELLOW Urine Clarity CLEAR Urine pH 6.5 Ur Specific [place] <=1.005 Urine Protein NEGATIVE Urine Glucose (UA) >=1000 H Urine Ketones NEGATIVE Urine Occult Blood NEGATIVE Urine Nitrite NEGATIVE Urine Bilirubin NEGATIVE Urine Urobilinogen 0.2 (NORMAL) Ur Leukocyte Esterase NEGATIVE Ur Microscopic Review NOT INDICATED Urine Culture Comments NOT INDICATED Serum Ketones PD MEDICAL DECISION MAKING - ED course Complexity details: reviewed old records, reviewed results, re-evaluated patient , considered differential, d/w patient, d/w family ED course: Patient is a 52-year-old gentleman who presents to the emergency department with hyperglycemia. Given IV fluids and insulin. Blood sugar decreased. No evidence of DKA or hyperosmolar nonketotic state. No altered mental status. Tolerating p.o. without difficulty. Ambulating well. I will have him follow- up with his doctor for further evaluation and care. Abdomen remained soft, nontender nondistended on serial exam. Patient counseled regarding signs and symptoms for which I believe and urgent re-evaluation would be necessary. Patient with good understanding of and agreement to plan and is comfortable going home at this time This document was made in part using voice recognition software. While efforts are made to proofread this document, sound alike and grammatical errors may occur. Blood sugar decreased to 378 Departure - Departure Disposition: 01 Home, Self Care Clinical Impression: Hyperglycemia, Thrombocytopenia Condition: Good Instructions: ED Hyperglycemia Diabetic Follow-Up: your,doctor in 1 week [Other] Comments: Continue your medications at home. Return if you worsen. Discharge Date/Time: 10/29/17 18:50
[2017-10-29 15:50] LABS: BASOPHILS # (AUTO) 0.1 10^3/uL (0.0-0.1); EOSINOPHILS # (AUTO) 0.3 10^3/uL (0.0-0.7); EOSINOPHILS % (AUTO) 4.4 %; HGB - HEMOGLOBIN 12.2 g/dL (14.0-18.0); LYMPHOCYTES # (AUTO) 1.6 10^3/uL (1.5-3.5); LYMPHOCYTES % (AUTO) 24.9 %; MEAN CORPUSCULAR HEMOGLOBIN 31.9 pg (27.0-31.0); MEAN CORPUSCULAR HGB CONC 32.8 g/dL (32.0-36.0); MEAN CORPUSCULAR VOLUME 97.2 fL (80.0-94.0); MEAN PLATELET VOLUME 11.7 fL (7.4-11.4); MONOCYTES # (AUTO) 0.4 10^3/uL (0.0-1.0); MONOCYTES % (AUTO) 5.8 %; NEUTROPHILS % (AUTO) 63.9 %; PLT - PLATELET COUNT 64 10^3/uL (130-450); RED BLOOD COUNT 3.84 10^6/uL (4.70-6.10); RED CELL DISTRIBUTION WIDTH 14.1 % (12.0-15.0); WHITE BLOOD COUNT 6.3 x10^3/uL (4.8-10.8)
[2017-10-29 15:51] LABS: VBG BASE EXCESS 0.4 mmol/L (-2 - +2); VBG PCO2 43.4 mmHg (41-51); VBG PH 7.389 (7.31-7.41); VBG PO2 42.4 mmHg (25-47)
[2017-10-29 16:00] LABS: KETONES, SERUM (ACETEST) NEGATIVE (NEGATIVE)
[2017-10-29 16:17] LABS: ALBUMIN 3.4 g/dL (3.2-5.5); ALBUMIN/GLOBULIN RATIO 0.9 (1.0-2.2); ALKALINE PHOSPHATASE 126 IU/L (42-121); ALT ALANINE AMINOTRANSFERASE 97 IU/L (10-60); AST ASPARTATE AMINOTRANSFERASE 84 IU/L (10-42); BUN - BLOOD UREA NITROGEN 22 mg/dL (6-20); CALCIUM 9.7 mg/dL (8.5-10.3); CARBON DIOXIDE - CO2 23 mmol/L (21-32); CHLORIDE 94 mmol/L (101-111); CREATININE 1.3 mg/dL (0.6-1.2); GFR - MDRD 58 (>89); LIPASE 59 U/L (22-51); SODIUM 127 mmol/L (135-145); TOTAL PROTEIN 7.4 g/dL (6.7-8.2)
[2017-10-29 16:18] LABS: GLUCOSE 679 mg/dL (70-100)
[2017-10-29] MEDS ORDERED: INSULIN REGULAR HUMAN 100 UNIT/1 ML 10 ML MDV IVP STA (16:26)
[2017-10-29] MEDS ORDERED: INSULIN REGULAR HUMAN 100 UNIT/1 ML 10 ML MDV SUBQ STA (16:26)
[2017-10-29 17:10] LABS: BILIRUBIN,URINE NEGATIVE (NEGATIVE); GLUCOSE, URINE (UA) >=1000 mg/dL (NEGATIVE); KETONES,URINE (UA) NEGATIVE (NEGATIVE); LEUKOCYTE ESTERASE, URINE NEGATIVE (NEGATIVE); NITRITE,URINE NEGATIVE (NEGATIVE); OCCULT BLOOD,URINE NEGATIVE (NEGATIVE); PH,URINE 6.5 PH (5.0-7.5); PROTEIN,URINE NEGATIVE (NEGATIVE); UROBILINOGEN,URINE 0.2 (NORMAL) E.U./dL (NORMAL)
[2017-10-29 17:23] LABS: CLARITY,URINE CLEAR (CLEAR)
[2017-10-29 18:41] VITALS: BP 157/122
== END 2017-10-29 18:50 | disposition home or self-care (01) ==
LOC: EDUNIT# → ED 14:59
DX: E11.65 Type 2 diabetes mellitus with hyperglycemia (principal); D69.6 Thrombocytopenia, unspecified; Z79.4 Long term (current) use of insulin; Z79.84 Long term (current) use of oral hypoglycemic drugs; I10 Essential (primary) hypertension; F17.200 Nicotine dependence, unspecified, uncomplicated; E03.9 Hypothyroidism, unspecified; E78.00 Pure hypercholesterolemia, unspecified
CPT/HCPCS: 36415; 80053; 81003; 82009; 82803; 83690; 85025; 96360; 96361; 99284; J1815; 81001; 87086

== ENCOUNTER 2017-11-03 21:20 | Outpatient (CLI) | payer MEDICAID | END 2017-11-03 21:21 | disposition critical access hospital (66) | LOC: EMS 21:20 | PROVIDERS: ATTEND Surgery | DX: R73.09 Other abnormal glucose (principal) | CPT/HCPCS: A0425; A0427 ==

== ENCOUNTER 2017-11-03 21:54 | Emergency (ER) | payer MEDICAID ==
[2017-11-03] MEDS ORDERED: INSULIN REGULAR HUMAN 100 UNIT/1 ML 10 ML MDV IVP STA (22:04)
[2017-11-03] MEDS ORDERED: SODIUM CHLORIDE 0.9% 1,000 ML IV ONE ×2 (22:04→22:25)
[2017-11-03 22:20] LABS: BASOPHILS # (AUTO) 0.1 10^3/uL (0.0-0.1); BASOPHILS % (AUTO) 1.3 %; EOSINOPHILS # (AUTO) 0.3 10^3/uL (0.0-0.7); EOSINOPHILS % (AUTO) 4.2 %; HGB - HEMOGLOBIN 12.5 g/dL (14.0-18.0); LYMPHOCYTES # (AUTO) 1.9 10^3/uL (1.5-3.5); LYMPHOCYTES % (AUTO) 25.2 %; MEAN CORPUSCULAR HEMOGLOBIN 32.7 pg (27.0-31.0); MEAN CORPUSCULAR HGB CONC 34.4 g/dL (32.0-36.0); MEAN CORPUSCULAR VOLUME 95.1 fL (80.0-94.0); MEAN PLATELET VOLUME 11.3 fL (7.4-11.4); MONOCYTES # (AUTO) 0.4 10^3/uL (0.0-1.0); MONOCYTES % (AUTO) 5.4 %; NEUTROPHILS # (AUTO) 4.7 10^3/uL (1.5-6.6); NEUTROPHILS % (AUTO) 63.9 %; PLT - PLATELET COUNT 67 10^3/uL (130-450); RED BLOOD COUNT 3.83 10^6/uL (4.70-6.10); RED CELL DISTRIBUTION WIDTH 14.7 % (12.0-15.0); WHITE BLOOD COUNT 7.3 x10^3/uL (4.8-10.8)
[2017-11-03 22:22] LABS: VBG BASE EXCESS -3.3 mmol/L (-2 - +2); VBG PCO2 31.6 mmHg (41-51); VBG PH 7.423 (7.31-7.41); VBG PO2 80.1 mmHg (25-47); VBG TOTAL CO2 21.1 mmol/L (24-29)
[2017-11-03] MEDS ORDERED: LOPERAMIDE 2 MG CAPSULE PO STA (22:25)
[2017-11-03] MEDS ORDERED: ONDANSETRON 4 MG/2 ML VIAL IVP STA (22:25)
--- NOTE | 2017-11-03 22:28 | ED Physician Documentation ---
PD HPI NVD - Stated complaint Stated Complaint: HIGH BLOOD SUGAR - Chief complaint Chief Complaint: Abd Pain - History obtained from History obtained from: Patient, EMS - History of Present Illness Timing - onset: Today Timing - details: Gradual onset, Still present Associated symptoms: No: Fever Contributing factors: Bad food. No: Sick contact Similar symptoms before: Diagnosis, Work up / diagnostics Recently seen: Emergency Dept - Additonal information Additional information: Patient is a 52 year old male with a history of diabetes who is presenting to the emergency department for nausea, vomiting, diarrhea and elevated blood sugars. Patient was seen a few days earlier with similar symptoms. Patient states that he is compliant with his insulin. Patient does live in a homeless fdc and could be exposed to food or various illnesses. Review of Systems Constitutional: denies: Fever, Chills Eyes: reports: Reviewed and negative Ears: reports: Reviewed and negative Nose: reports: Reviewed and negative Throat: reports: Reviewed and negative Cardiac: denies: Chest pain / pressure, Palpitations Respiratory: denies: Dyspnea, Cough, Wheezing GI: reports: Abdominal Pain, Nausea, Vomiting, Diarrhea : denies: Dysuria Skin: reports: Reviewed and negative Musculoskeletal: reports: Reviewed and negative Neurologic: reports: Generalized weakness. denies: Focal weakness Immunocompromised: denies: Immunocompromised PD PAST MEDICAL HISTORY - Past Medical History Cardiovascular: Hypertension, High cholesterol Respiratory: None Neuro: Peripheral neuropathy Endocrine/Autoimmune: Type 2 diabetes, HyPOthyroidism GI: GERD, Hepatitis : Frequency HEENT: None Psych: Depression, Anxiety Musculoskeletal: Chronic back pain Derm: None - Past Surgical History Past Surgical History: No - Present Medications Home Medications: Ambulatory Orders Medication Instructions Recorded Confirmed metFORMIN [Glucophage] 500 mg PO BIDWM 03/15/17 08/20/17 Insulin NPH Hum/Reg Insulin Hm 40 units SQ BID 08/06/17 08/20/17 [Novolin 70-30 100 Unit/ml Vial] Levothyroxine Sodium [Synthroid] 150 mcg PO QDAC 08/06/17 08/20/17 Lancets/Blood Glucose Strips [Fora 1 each MC BID #100 combo..pkg 08/08/17 [id number] Strp-Lnct] Albuterol Sulf [Ventolin Hfa 1 - 2 puffs INH Q4HR PRN #1 inhaler 08/18/17 Inhaler] Benzonatate [Tessalon] 100 mg PO TID PRN #25 capsule 08/18/17 10/29/17 metFORMIN [Glucophage] 500 mg PO BIDWM #60 tablet 08/18/17 Loperamide [Imodium] 2 mg PO QID #14 capsule 11/04/17 Ondansetron Odt [Zofran] 4 mg TL Q6H PRN #20 tablet 11/04/17 - Allergies Allergies/Adverse Reactions: Allergies Allergy/AdvReac Type Severity Reaction Status Date / Time No Known Drug Allergies Allergy Verified 11/03/17 22:01 - Social History Does the pt smoke?: Yes Smoking Status: Current every day smoker Does the pt drink ETOH?: No Does the pt have substance abuse?: No - Immunizations Immunizations are current?: Yes - POLST Patient has POLST: Yes POLST Status: Full Code PD ED PE NORMAL - Vitals Vital signs reviewed: Yes - General General: Alert and oriented X 3 - HEENT HEENT: Atraumatic, PERRL - Neck Neck: Supple, no meningeal sign - Cardiac Cardiac: RRR - Respiratory Respiratory: No respiratory distress - Abdomen Abdomen: Soft - Derm Derm: Normal color, Warm and dry - Extremities Extremities: No deformity, No edema - Neuro Neuro: Alert and oriented X 3, No motor deficit, No sensory deficit, Normal speech Eye Opening: Spontaneous Motor: Obeys Commands PD ED PE EXPANDED - HEENT HEENT: Dry mucous membranes - Abdomen Abdomen: Tender to palpation, Epigastric, Generalized/diffuse. No: Rebound, Guarding Results - Vitals Vitals: Vital Signs - 24 hr 11/03/17 21:57 Temperature 36.9 C Heart Rate 93 Respiratory 16 Rate Blood Pressure 153/89 H O2 Saturation 97 Oxygen O2 Source Room air - Labs Labs: Laboratory Tests 11/03/17 11/03/17 11/03/17 21:19 21:19 21:19 WBC 7.3 RBC 3.83 L Hgb 12.5 L Hct 36.4 L MCV 95.1 H MCH 32.7 H MCHC 34.4 RDW 14.7 Plt Count 67 L MPV 11.3 Neut # 4.7 Lymph # 1.9 [place] # 0.4 Eos # 0.3 Baso # 0.1 Absolute Nucleated RBC 0.00 Nucleated RBC % 0.0 VBG pH 7.423 H VBG pCO2 31.6 L VBG pO2 80.1 H VBG HCO3 20.2 L VBG Total CO2 21.1 L VBG O2 Saturation 95.9 H VBG Base Excess -3.3 L Sodium 129 L Potassium 3.5 Chloride 98 L Carbon Dioxide 22 Anion Gap 9.0 BUN 20 Creatinine 0.8 Estimated GFR (MDRD) 102 Glucose 454 H Calcium 9.1 Phosphorus 3.0 Magnesium 1.6 L Total Bilirubin 1.2 H AST 238 H ALT 253 H Alkaline Phosphatase 157 H Total Protein 7.5 Albumin 3.4 Globulin 4.1 Albumin/Globulin Ratio 0.8 L Lipase 99 H Urine Color Urine Clarity Urine pH Ur Specific [place] Urine Protein Urine Glucose (UA) Urine Ketones Urine Occult Blood Urine Nitrite Urine Bilirubin Urine Urobilinogen Ur Leukocyte Esterase Ur Microscopic Review Urine Culture Comments Serum Ketones NEGATIVE Influenza A (Rapid) Influenza B (Rapid) Influenza Types A,B Ag 11/03/17 11/03/17 22:36 22:56 WBC RBC Hgb Hct MCV MCH MCHC RDW Plt Count MPV Neut # Lymph # [place] # Eos # Baso # Absolute Nucleated RBC Nucleated RBC % VBG pH VBG pCO2 VBG pO2 VBG HCO3 VBG Total CO2 VBG O2 Saturation VBG Base Excess Sodium Potassium Chloride Carbon Dioxide Anion Gap BUN Creatinine Estimated GFR (MDRD) Glucose Calcium Phosphorus Magnesium Total Bilirubin AST ALT Alkaline Phosphatase Total Protein Albumin Globulin Albumin/Globulin Ratio Lipase Urine Color YELLOW Urine Clarity CLEAR Urine pH 6.0 Ur Specific [place] 1.015 Urine Protein NEGATIVE Urine Glucose (UA) >=1000 H Urine Ketones NEGATIVE Urine Occult Blood NEGATIVE Urine Nitrite NEGATIVE Urine Bilirubin NEGATIVE Urine Urobilinogen 0.2 (NORMAL) Ur Leukocyte Esterase NEGATIVE Ur Microscopic Review NOT INDICATED Urine Culture Comments NOT INDICATED Serum Ketones Influenza A (Rapid) Negative Influenza B (Rapid) Negative Influenza Types A,B Ag - PD MEDICAL DECISION MAKING - ED course Complexity details: reviewed old records, reviewed results, re-evaluated patient , considered differential, d/w patient ED course: Patient was seen and examined at bedside. IV access had been gained, labs were drawn. Patient was treated with fluid bolus zofran, loperamide and 10 units of insulin. Patient's blood work showed no signs of dka but patient remained hyperglycemic. Patient was treated with additional insulin and IV fluids. Patient had no episodes of vomiting or diarrhea while in the emergency department. while patient's blood glucose is poorly controlled he does not required inpatient management at this time. Patient was stable for discharge with outpatient follow up. Departure - Departure Disposition: 01 Home, Self Care Clinical Impression: Uncontrolled type 2 diabetes mellitus, Gastroenteritis Condition: Good Instructions: ED Gastroenteritis Viral Follow-Up: Kirk Carney MD [Primary Care Provider] - Within 3 Days Prescriptions: Loperamide [Imodium] 2 mg PO QID #14 capsule Ondansetron Odt [Zofran] 4 mg TL Q6H PRN #20 tablet PRN Reason: Nausea / Vomiting Comments: Your work up today showed elevated blood sugars but no signs of acidosis or ketosis. You will need closer management of your blood glucose. You should follow up with your doctor tomorrow. You are being prescribed diarrhea and nausea medications and it is important that you stay well hydrated. You may return to the emergency department for new, worsening or uncontrollable symptoms.
[2017-11-03 22:29] LABS: KETONES, SERUM (ACETEST) NEGATIVE (NEGATIVE)
[2017-11-03 22:33] LABS: ALBUMIN 3.4 g/dL (3.2-5.5); ALBUMIN/GLOBULIN RATIO 0.8 (1.0-2.2); ALKALINE PHOSPHATASE 157 IU/L (42-121); ALT ALANINE AMINOTRANSFERASE 253 IU/L (10-60); AST ASPARTATE AMINOTRANSFERASE 238 IU/L (10-42); BILIRUBIN,TOTAL 1.2 mg/dL (0.2-1.0); BUN - BLOOD UREA NITROGEN 20 mg/dL (6-20); CALCIUM 9.1 mg/dL (8.5-10.3); CARBON DIOXIDE - CO2 22 mmol/L (21-32); CHLORIDE 98 mmol/L (101-111); CREATININE 0.8 mg/dL (0.6-1.2); GFR - MDRD 102 (>89); GLUCOSE 454 mg/dL (70-100); LIPASE 99 U/L (22-51); MAGNESIUM 1.6 mg/dL (1.7-2.8); SODIUM 129 mmol/L (135-145); TOTAL PROTEIN 7.5 g/dL (6.7-8.2)
[2017-11-04] MEDS ORDERED: SODIUM CHLORIDE 0.9% 1,000 ML IV ONE (00:30)
[2017-11-04] MEDS ORDERED: INSULIN REGULAR HUMAN 100 UNIT/1 ML 10 ML MDV IVP STA (00:30)
[2017-11-04 00:32] LABS: BILIRUBIN,URINE NEGATIVE (NEGATIVE); GLUCOSE, URINE (UA) >=1000 mg/dL (NEGATIVE); KETONES,URINE (UA) NEGATIVE (NEGATIVE); LEUKOCYTE ESTERASE, URINE NEGATIVE (NEGATIVE); NITRITE,URINE NEGATIVE (NEGATIVE); OCCULT BLOOD,URINE NEGATIVE (NEGATIVE); PROTEIN,URINE NEGATIVE (NEGATIVE); UROBILINOGEN,URINE 0.2 (NORMAL) E.U./dL (NORMAL)
[2017-11-04 00:33] LABS: CLARITY,URINE CLEAR (CLEAR)
[2017-11-04 02:37] VITALS: BP 131/79
== END 2017-11-04 03:02 | disposition home or self-care (01) ==
LOC: EDUNIT# → ED 21:54
DX: E11.65 Type 2 diabetes mellitus with hyperglycemia (principal); E11.42 Type 2 diabetes mellitus with diabetic polyneuropathy; Z79.4 Long term (current) use of insulin; K52.9 Noninfective gastroenteritis and colitis, unspecified; I10 Essential (primary) hypertension; E03.9 Hypothyroidism, unspecified; K21.9 Gastro-esophageal reflux disease without esophagitis; K75.9 Inflammatory liver disease, unspecified; F17.200 Nicotine dependence, unspecified, uncomplicated
CPT/HCPCS: 36415; 80053; 81003; 82009; 82803; 83690; 83735; 84100; 85025; 87275; 87276; 96361; 96374; 99283; 99284; A9270; J1815; 81001; 87086

== ENCOUNTER 2017-11-24 16:41 | Outpatient (CLI) | payer MEDICAID | END 2017-11-24 16:42 | disposition critical access hospital (66) | LOC: EMS 16:41 | PROVIDERS: ATTEND Surgery | DX: E11.65 Type 2 diabetes mellitus with hyperglycemia (principal); R11.10 Vomiting, unspecified; R35.0 Frequency of micturition | CPT/HCPCS: A0425; A0427 ==

== ENCOUNTER 2017-11-24 17:04 | Emergency (ER) | payer MEDICAID ==
[2017-11-24] MEDS ORDERED: SODIUM CHLORIDE 0.9% 1,000 ML IV ONE ×2 (17:15→18:04)
[2017-11-24] MEDS ORDERED: INSULIN REGULAR HUMAN 100 UNIT/1 ML 10 ML MDV IVP STA ×2 (17:16→18:36)
--- NOTE | 2017-11-24 17:19 | ED Physician Documentation ---
History of Present Illness - Stated complaint Stated Complaint: High Blood sugar - History obtained from History obtained from: Patient, EMS - History of Present Illness Timing: Other (52-year-old gentleman with type 2 diabetes on metformin and insulin presents with high blood sugar. His glucometer today was reading high. He does admit that he has only been taking about half doses of his Novolin 70/ 30 because if he takes any more he does not feel well. He did vomit once today. He has been seen frequently for this in the past, about weekly. He has an appointment with his physician in this coming month but has not seen him lately.) Review of Systems Constitutional: reports: Fatigue. denies: Fever, Chills Ears: reports: Reviewed and negative Nose: reports: Reviewed and negative Throat: reports: Reviewed and negative Cardiac: reports: Reviewed and negative PD PAST MEDICAL HISTORY - Past Medical History Cardiovascular: Hypertension, High cholesterol Respiratory: None Neuro: Peripheral neuropathy Endocrine/Autoimmune: Type 2 diabetes, HyPOthyroidism GI: GERD, Hepatitis : Frequency HEENT: None Psych: Depression, Anxiety Musculoskeletal: Chronic back pain Derm: None - Past Surgical History Past Surgical History: No - Present Medications Home Medications: Ambulatory Orders Medication Instructions Recorded Confirmed Insulin NPH Hum/Reg Insulin Hm 40 units SQ BID 08/06/17 08/20/17 [Novolin 70-30 100 Unit/ml Vial] Levothyroxine Sodium [Synthroid] 150 mcg PO QDAC 08/06/17 08/20/17 metFORMIN [Glucophage] 500 mg PO BIDWM #60 tablet 08/18/17 - Allergies Allergies/Adverse Reactions: Allergies Allergy/AdvReac Type Severity Reaction Status Date / Time No Known Drug Allergies Allergy Verified 11/03/17 22:01 - Social History Does the pt smoke?: Yes Smoking Status: Current every day smoker Does the pt drink ETOH?: No Does the pt have substance abuse?: No - Family History Family history: reports: Non contributory - Immunizations Immunizations are current?: Yes - POLST Patient has POLST: Yes POLST Status: Full Code PD ED PE NORMAL - Vitals Vital signs reviewed: Yes - General General: Alert and oriented X 3, No acute distress - HEENT HEENT: PERRL, EOMI, Pharynx benign - Neck Neck: Supple, no meningeal sign, No bony TTP - Cardiac Cardiac: RRR, No murmur - Respiratory Respiratory: No respiratory distress, Clear bilaterally - Abdomen Abdomen: Soft, Non tender - Back Back: No CVA TTP, No spinal TTP - Derm Derm: Normal color, Warm and dry - Extremities Extremities: No edema, No calf tenderness / cord - Neuro Neuro: Alert and oriented X 3 Eye Opening: Spontaneous Motor: Obeys Commands Verbal: Oriented GCS Score: 15 - Psych Psych: Normal mood, Normal affect Results - Vitals Vitals: Vital Signs - 24 hr 11/24/17 17:07 Temperature 36.7 C Heart Rate 80 Respiratory 18 Rate Blood Pressure 152/91 H O2 Saturation 99 Oxygen O2 Source Room air - Labs Labs: Laboratory Tests 11/24/17 11/24/17 17:25 17:25 VBG pH 7.372 VBG pCO2 48.1 VBG pO2 21.0 L VBG HCO3 27.3 VBG Total CO2 28.8 VBG O2 Saturation 39.5 L VBG Base Excess 1.4 Sodium 124 L Potassium 5.0 Chloride 91 L Carbon Dioxide 26 Anion Gap 7.0 BUN 25 H Creatinine 1.1 Estimated GFR (MDRD) 70 L Glucose 747 H* Calcium 9.5 Total Bilirubin 2.3 H AST 275 H ALT 355 H Alkaline Phosphatase 210 H Total Protein 7.4 Albumin 3.2 Globulin 4.2 Albumin/Globulin Ratio 0.8 L Lipase 69 H Serum Ketones NEGATIVE PD MEDICAL DECISION MAKING - ED course ED course: 52-year-old gentleman with hepatitis C and diabetes presents with uncontrolled blood sugars. He has no abdominal pain. He was administered divided doses of insulin and saline with significant improvement in his blood sugars. Note made of worsening liver function, given the fact that he is painless this is probably from his hepatitis C and needs follow-up with his primary care physician. Departure - Departure Disposition: Home, Self Care Clinical Impression: Hepatitis C antibody positive in blood Uncontrolled type 2 diabetes mellitus Qualifiers: Diabetes mellitus complication status: with hyperglycemia Diabetes mellitus watermelon inspector insulin use: with half-way use Qualified Code(s): E11.65 - Type 2 diabetes mellitus with hyperglycemia; Z79.4 - watermelon inspector (current) use of insulin ; Z79.4 - watermelon inspector (current) use of insulin; Z79.4 - watermelon inspector (current) use of insulin; Z79.4 - watermelon inspector (current) use of insulin Condition: Good Record reviewed to determine appropriate education?: Yes Comments: You need to take her full dose of insulin. I know it does not make you feel good but is important for your long-term health and survival. Your liver function is worsening and he need to follow-up with your primary care physician as scheduled for long-term care. Return if worse.
[2017-11-24 17:31] LABS: VBG BASE EXCESS 1.4 mmol/L (-2 - +2); VBG PCO2 48.1 mmHg (41-51); VBG PH 7.372 (7.31-7.41); VBG TOTAL CO2 28.8 mmol/L (24-29)
[2017-11-24 17:37] LABS: KETONES, SERUM (ACETEST) NEGATIVE (NEGATIVE)
[2017-11-24 17:44] LABS: ALBUMIN 3.2 g/dL (3.2-5.5); ALBUMIN/GLOBULIN RATIO 0.8 (1.0-2.2); ALKALINE PHOSPHATASE 210 IU/L (42-121); ALT ALANINE AMINOTRANSFERASE 355 IU/L (10-60); AST ASPARTATE AMINOTRANSFERASE 275 IU/L (10-42); BILIRUBIN,TOTAL 2.3 mg/dL (0.2-1.0); BUN - BLOOD UREA NITROGEN 25 mg/dL (6-20); CALCIUM 9.5 mg/dL (8.5-10.3); CARBON DIOXIDE - CO2 26 mmol/L (21-32); CHLORIDE 91 mmol/L (101-111); CREATININE 1.1 mg/dL (0.6-1.2); GFR - MDRD 70 (>89); LIPASE 69 U/L (22-51); SODIUM 124 mmol/L (135-145); TOTAL PROTEIN 7.4 g/dL (6.7-8.2)
[2017-11-24 17:45] LABS: GLUCOSE 747 mg/dL (70-100)
[2017-11-24 19:36] VITALS: BP 128/82
== END 2017-11-24 19:38 | disposition home or self-care (01) ==
LOC: EDUNIT# → ED 17:04
DX: B19.20 Unspecified viral hepatitis C without hepatic coma (principal); E11.65 Type 2 diabetes mellitus with hyperglycemia; E11.42 Type 2 diabetes mellitus with diabetic polyneuropathy; I10 Essential (primary) hypertension; E78.00 Pure hypercholesterolemia, unspecified; E03.9 Hypothyroidism, unspecified; F17.200 Nicotine dependence, unspecified, uncomplicated; Z79.4 Long term (current) use of insulin
CPT/HCPCS: 36415; 80053; 82009; 82803; 83690; 96360; 99283; J1815

== ENCOUNTER 2017-12-02 06:25 | Outpatient (CLI) | payer MEDICAID | END 2017-12-02 06:26 | disposition EMS.NT | LOC: EMS 06:25 | PROVIDERS: ATTEND Surgery | DX: K92.0 Hematemesis (principal); R04.0 Epistaxis ==

== ENCOUNTER 2018-01-03 08:00 | Outpatient (CLI) | payer MEDICAID ==
[2018-01-03 12:48] LABS: BASOPHILS % (AUTO) 0.4 %; EOSINOPHILS # (AUTO) 0.3 10^3/uL (0.0-0.7); EOSINOPHILS % (AUTO) 5.4 %; HGB - HEMOGLOBIN 12.4 g/dL (14.0-18.0); LYMPHOCYTES % (AUTO) 32.1 %; MEAN CORPUSCULAR HEMOGLOBIN 32.6 pg (27.0-31.0); MEAN CORPUSCULAR HGB CONC 33.8 g/dL (32.0-36.0); MEAN CORPUSCULAR VOLUME 96.6 fL (80.0-94.0); MEAN PLATELET VOLUME 11.8 fL (7.4-11.4); MONOCYTES # (AUTO) 0.4 10^3/uL (0.0-1.0); NEUTROPHILS # (AUTO) 3.5 10^3/uL (1.5-6.6); NEUTROPHILS % (AUTO) 56.1 %; PLT - PLATELET COUNT 49 10^3/uL (130-450); RED CELL DISTRIBUTION WIDTH 15.5 % (12.0-15.0); WHITE BLOOD COUNT 6.2 x10^3/uL (4.8-10.8)
[2018-01-03 13:12] LABS: HB2 TOTAL 13.4 g/dL; HEMOGLOBIN A1C 1.52 g/dL; HEMOGLOBIN A1C % 12.5 % (4.6-6.2)
[2018-01-03 13:21] LABS: ALBUMIN 3.2 g/dL (3.2-5.5); ALBUMIN/GLOBULIN RATIO 0.7 (1.0-2.2); ALKALINE PHOSPHATASE 136 IU/L (42-121); ALT ALANINE AMINOTRANSFERASE 168 IU/L (10-60); AST ASPARTATE AMINOTRANSFERASE 158 IU/L (10-42); BILIRUBIN,TOTAL 1.2 mg/dL (0.2-1.0); BUN - BLOOD UREA NITROGEN 13 mg/dL (6-20); CALCIUM 9.3 mg/dL (8.5-10.3); CARBON DIOXIDE - CO2 23 mmol/L (21-32); CHLORIDE 105 mmol/L (101-111); CHOL/HDL RATIO 4.1 (<5.0); CHOLESTEROL 168 mg/dL; CREATININE 0.6 mg/dL (0.6-1.2); GFR - MDRD 141 (>89); GLUCOSE 183 mg/dL (70-100); HDL CHOLESTEROL 41 mg/dL; LDL CHOLESTEROL,CALCULATED 100 mg/dL; LDL/HDL RATIO 2.4 (<3.6); SODIUM 135 mmol/L (135-145); TOTAL PROTEIN 7.7 g/dL (6.7-8.2); VLDL CHOLESTEROL 27 mg/dL
[2018-01-03 13:23] LABS: FREE T4 (FREE THYROXINE) 0.35 ng/dL (0.58-1.64)
[2018-01-03 13:26] LABS: FERRITIN 159.4 ng/mL (23.9-336.2)
[2018-01-03 14:52] LABS: THYROID STIMULATING HORMONE 62.15 uIU/mL (0.34-5.60)
== END 2018-01-03 08:01 | disposition home or self-care (01) ==
LOC: LAB.N 08:00
PROVIDERS: ATTEND Family Medicine
DX: D53.9 Nutritional anemia, unspecified (principal); E03.9 Hypothyroidism, unspecified; E11.65 Type 2 diabetes mellitus with hyperglycemia; Z79.4 Long term (current) use of insulin
CPT/HCPCS: 36415; 80053; 80061; 82728; 83036; 83721; 84439; 84443; 85025

== ENCOUNTER 2018-01-08 08:08 | Emergency (ER) | payer OTHER, MEDICAID ==
[2018-01-08] MEDS ORDERED: MELOXICAM 7.5 MG TABLET PO STA (08:48)
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
[2018-01-08 09:44] VITALS: BP 135/77
== END 2018-01-08 09:43 | disposition home or self-care (01) ==
LOC: ED 08:08
DX: S40.011A Contusion of right shoulder, initial encounter (principal); V53.5XXA Driver of pick-up truck or van injured in collision with car, pick-up truck or van in traffic accident, initial encounter; E11.9 Type 2 diabetes mellitus without complications; E03.9 Hypothyroidism, unspecified; I10 Essential (primary) hypertension; E78.00 Pure hypercholesterolemia, unspecified; K75.9 Inflammatory liver disease, unspecified; F17.200 Nicotine dependence, unspecified, uncomplicated; Z79.4 Long term (current) use of insulin
CPT/HCPCS: 99283; A9270

== ENCOUNTER 2018-03-16 15:03 | Outpatient (CLI) | payer MEDICAID, OTHER ==
[2018-03-16 18:57] LABS: BASOPHILS # (AUTO) 0.1 10^3/uL (0.0-0.1); BASOPHILS % (AUTO) 1.4 %; EOSINOPHILS # (AUTO) 0.3 10^3/uL (0.0-0.7); HGB - HEMOGLOBIN 13.1 g/dL (14.0-18.0); LYMPHOCYTES # (AUTO) 2.1 10^3/uL (1.5-3.5); LYMPHOCYTES % (AUTO) 31.2 %; MEAN CORPUSCULAR HEMOGLOBIN 32.9 pg (27.0-31.0); MEAN CORPUSCULAR HGB CONC 33.7 g/dL (32.0-36.0); MEAN CORPUSCULAR VOLUME 97.8 fL (80.0-94.0); MEAN PLATELET VOLUME 10.8 fL (7.4-11.4); MEAN RETIC VALUE 112.1; MONOCYTES # (AUTO) 0.5 10^3/uL (0.0-1.0); MONOCYTES % (AUTO) 7.3 %; NEUTROPHILS # (AUTO) 3.7 10^3/uL (1.5-6.6); NEUTROPHILS % (AUTO) 55.1 %; PLT - PLATELET COUNT 68 10^3/uL (130-450); RED BLOOD COUNT 3.98 10^6/uL (4.70-6.10); RED CELL DISTRIBUTION WIDTH 15.8 % (12.0-15.0); WHITE BLOOD COUNT 6.8 x10^3/uL (4.8-10.8)
[2018-03-16 19:27] LABS: FREE T4 (FREE THYROXINE) 0.43 ng/dL (0.58-1.64)
[2018-03-16 19:31] LABS: % IRON SATURATION 33 % (20-50); IRON 108 ug/dL (45-182); TOTAL IRON BINDING CAPACITY 332 ug/dL (250-450); TRANSFERRIN 237 mg/dL (180-329)
[2018-03-16 19:33] LABS: FERRITIN 278.4 ng/mL (23.9-336.2)
[2018-03-16 19:36] LABS: FOLATE 20.86 ng/mL (5.90 - >24.8)
[2018-03-16 20:14] LABS: THYROID STIMULATING HORMONE 89.71 uIU/mL (0.34-5.60)
== END 2018-03-16 15:04 | disposition home or self-care (01) ==
LOC: LAB.N 15:03
PROVIDERS: ATTEND Family Medicine
DX: D53.9 Nutritional anemia, unspecified (principal); E03.9 Hypothyroidism, unspecified
CPT/HCPCS: 36415; 82607; 82728; 82746; 83540; 84439; 84443; 84466; 85025; 85044

== ENCOUNTER 2018-04-06 14:56 | Outpatient (CLI) | payer MEDICAID ==
[2018-04-06 19:11] LABS: HB2 TOTAL 12.6 g/dL; HEMOGLOBIN A1C 1.49 g/dL
[2018-04-06 19:13] LABS: CALCIUM 9.2 mg/dL (8.5-10.3)
== END 2018-04-06 14:57 | disposition home or self-care (01) ==
LOC: LAB.N 14:56
PROVIDERS: ATTEND Family Medicine
DX: E11.8 Type 2 diabetes mellitus with unspecified complications (principal); Z79.4 Long term (current) use of insulin
CPT/HCPCS: 36415; 80048; 83036

== ENCOUNTER 2018-05-15 08:38 | Outpatient (CLI) | payer MEDICAID ==
[2018-05-15 14:56] LABS: THYROID STIMULATING HORMONE 31.99 uIU/mL (0.34-5.60)
[2018-05-15 14:58] LABS: FREE T4 (FREE THYROXINE) 0.53 ng/dL (0.58-1.64)
== END 2018-05-15 08:39 | disposition home or self-care (01) ==
LOC: LAB.N 08:38
PROVIDERS: ATTEND Family Medicine
DX: E03.9 Hypothyroidism, unspecified (principal)
CPT/HCPCS: 36415; 84439; 84443; 84481

== ENCOUNTER 2018-05-18 09:54 | Outpatient (CLI) | payer MEDICAID | END 2018-05-18 09:55 | disposition home or self-care (01) | LOC: LAB.N 09:54 | PROVIDERS: ATTEND Nurse Practitioner | DX: E03.9 Hypothyroidism, unspecified (principal) | CPT/HCPCS: 36415; 86376; 86800 ==

== ENCOUNTER 2018-08-10 13:01 | Emergency (ER) | payer MEDICAID ==
[2018-08-10] MEDS ORDERED: BUFFERED LIDOCAINE 10 ML SYRINGE SUBQ STA (13:36)
[2018-08-10] MEDS ORDERED: SULFAMETH/TRIMETH DS 800/160 MG TABLET PO STA (13:36)
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
[2018-08-10 14:22] VITALS: BP 118/72
== END 2018-08-10 14:21 | disposition home or self-care (01) ==
LOC: ED 13:01
DX: I10 Essential (primary) hypertension (principal); E11.9 Type 2 diabetes mellitus without complications; Z79.4 Long term (current) use of insulin; F17.200 Nicotine dependence, unspecified, uncomplicated; L02.414 Cutaneous abscess of left upper limb; L03.114 Cellulitis of left upper limb
CPT/HCPCS: 10060; 87070; 87205; 99283

== ENCOUNTER 2018-08-21 20:06 | Emergency (ER) | payer MEDICAID ==
[2018-08-21] MEDS ORDERED: SODIUM CHLORIDE 0.9% 1,000 ML IV ONE (20:36)
[2018-08-21] MEDS ORDERED: INSULIN REGULAR HUMAN 100 UNIT/1 ML 10 ML MDV IVP STA (20:36)
--- NOTE | 2018-08-21 20:38 | ED Physician Documentation ---
History of Present Illness - Stated complaint Stated Complaint: BLOOD SUGAR ISSUES - Chief complaint Chief Complaint: General - History obtained from History obtained from: Patient - History of Present Illness Timing: Other (This is a 53-year-old gentleman with type 2 diabetes on Humulin who chronically always has high blood sugars. He says 500 is pretty much normal for him. A week ago they were controlled but he thinks his insulin went bad so he was not taking it and he has had blood sugars of about 500 all week. He took Humulin prior to arrival but it is still high.) Review of Systems Constitutional: denies: Fever, Chills Cardiac: denies: Chest pain / pressure, Palpitations Respiratory: denies: Dyspnea, Cough GI: denies: Abdominal Pain : reports: Frequency PD PAST MEDICAL HISTORY - Past Medical History Past Medical History: Yes Cardiovascular: Hypertension, High cholesterol Respiratory: None Neuro: None Endocrine/Autoimmune: Type 2 diabetes, HyPOthyroidism GI: GERD, Esophageal varices, Cirrhosis, Other : Frequency HEENT: None Psych: Depression, Anxiety, Post traumatic stress disorder Musculoskeletal: Chronic back pain Derm: None Other Past Medical History: ulcer in esophagus - Past Surgical History Past Surgical History: No General: Other - Present Medications Home Medications: Ambulatory Orders Medication Instructions Recorded Confirmed Insulin NPH Hum/Reg Insulin Hm 40 units SQ BID 08/06/17 08/20/17 [Novolin 70-30 100 Unit/ml Vial] Levothyroxine Sodium [Synthroid] 150 mcg PO QDAC 08/06/17 08/20/17 metFORMIN [Glucophage] 500 mg PO BIDWM #60 tablet 08/18/17 Meloxicam [Mobic] 15 mg PO DAILY PRN #20 tablet 01/08/18 Sulfamethoxazole/Trimethoprim 1 each PO BID #20 tablet 08/10/18 [Sulfamethoxazole-Tmp Ds Tablet] - Allergies Allergies/Adverse Reactions: Allergies Allergy/AdvReac Type Severity Reaction Status Date / Time No Known Drug Allergies Allergy Verified 08/21/18 20:19 - Social History Does the pt smoke?: Yes Smoking Status: Current every day smoker Does the pt drink ETOH?: No Does the pt have substance abuse?: No - Immunizations Immunizations are current?: Yes - POLST Patient has POLST: Yes POLST Status: Full Code PD ED PE NORMAL - Vitals Vital signs reviewed: Yes - General General: Alert and oriented X 3, No acute distress - Cardiac Cardiac: RRR, No murmur - Respiratory Respiratory: No respiratory distress, Clear bilaterally - Extremities Extremities: Other (Healing abscess to the left wrist that I/Ded about a week ago without evidence of active infection.) - Neuro Neuro: Alert and oriented X 3, Normal speech - Psych Psych: Normal mood, Normal affect Results - Vitals Vitals: Vital Signs - 24 hr 08/21/18 20:14 Temperature 37.9 C H Heart Rate 65 Respiratory 17 Rate Blood Pressure 134/90 H O2 Saturation 100 Oxygen O2 Source Room air - Labs Labs: Laboratory Tests 08/21/18 08/21/18 08/21/18 20:58 20:58 20:58 WBC 5.4 RBC 4.01 L Hgb 13.0 L Hct 40.1 L MCV 100.0 H MCH 32.4 H MCHC 32.4 RDW 16.1 H Plt Count 52 L MPV 11.2 Neut # (Auto) 3.5 Lymph # (Auto) 1.3 L [place] # (Auto) 0.3 Eos # (Auto) 0.2 Baso # (Auto) 0.1 Absolute Nucleated RBC 0.00 Nucleated RBC % 0.1 VBG pH 7.328 VBG pCO2 47.0 VBG pO2 27.1 VBG HCO3 24.1 VBG Total CO2 25.6 VBG O2 Saturation 47.3 L VBG Base Excess -2.1 L Sodium 124 L Potassium 3.9 Chloride 90 L Carbon Dioxide 25 Anion Gap 9.0 BUN 24 H Creatinine 1.0 Estimated GFR (MDRD) 78 L Glucose 623 H* Calcium 10.0 Total Bilirubin 2.0 H AST 363 H ALT 457 H Alkaline Phosphatase 161 H Total Protein 8.5 H Albumin 3.7 Globulin 4.8 H Albumin/Globulin Ratio 0.8 L Lipase 76 H Serum Ketones NEGATIVE PD MEDICAL DECISION MAKING - ED course ED course: 53-year-old gentleman presents with uncontrolled diabetes and alarmingly high blood sugars. He was administered IV fluids and insulin here. There is no evidence of DKA. Labs otherwise reviewed, he has a history of cirrhosis and his liver enzyme numbers do not really significantly different than his baseline. Last A1c was 13 so his blood sugar is chronically quite high. After the administration of IV fluids and insulin his recheck blood sugar was 320 which is acceptable for discharge. Departure - Departure Disposition: 01 Home, Self Care Clinical Impression: Hepatitis C antibody positive in blood Uncontrolled type 2 diabetes mellitus Qualifiers: Glycemic state: with hyperglycemia Qualified Code(s): E11.65 - Type 2 diabetes mellitus with hyperglycemia Condition: Good Record reviewed to determine appropriate education?: Yes Instructions: Diabetes Type 2 Coping Follow-Up: Kirk Carney MD [Primary Care Provider] - Comments: Continue Working closely with your physician for better blood sugar control. Return for new or worsening symptoms.
[2018-08-21 21:12] LABS: VBG PH 7.328 (7.31-7.41)
[2018-08-21 21:13] LABS: VBG BASE EXCESS -2.1 mmol/L (-2 - +2); VBG PO2 27.1 mmHg (25-47); VBG TOTAL CO2 25.6 mmol/L (24-29)
[2018-08-21 21:16] LABS: BASOPHILS # (AUTO) 0.1 10^3/uL (0.0-0.1); BASOPHILS % (AUTO) 1.1 %; EOSINOPHILS # (AUTO) 0.2 10^3/uL (0.0-0.7); EOSINOPHILS % (AUTO) 3.3 %; LYMPHOCYTES # (AUTO) 1.3 10^3/uL (1.5-3.5); LYMPHOCYTES % (AUTO) 24.9 %; MEAN CORPUSCULAR HEMOGLOBIN 32.4 pg (27.0-31.0); MEAN CORPUSCULAR HGB CONC 32.4 g/dL (32.0-36.0); MEAN PLATELET VOLUME 11.2 fL (7.4-11.4); MONOCYTES # (AUTO) 0.3 10^3/uL (0.0-1.0); MONOCYTES % (AUTO) 5.3 %; NEUTROPHILS # (AUTO) 3.5 10^3/uL (1.5-6.6); NEUTROPHILS % (AUTO) 65.4 %; PLT - PLATELET COUNT 52 10^3/uL (130-450); RED BLOOD COUNT 4.01 10^6/uL (4.70-6.10); RED CELL DISTRIBUTION WIDTH 16.1 % (12.0-15.0); WHITE BLOOD COUNT 5.4 x10^3/uL (4.8-10.8)
[2018-08-21 21:19] LABS: KETONES, SERUM (ACETEST) NEGATIVE (NEGATIVE)
[2018-08-21 21:35] LABS: ALBUMIN 3.7 g/dL (3.2-5.5); ALBUMIN/GLOBULIN RATIO 0.8 (1.0-2.2); ALKALINE PHOSPHATASE 161 IU/L (42-121); ALT ALANINE AMINOTRANSFERASE 457 IU/L (10-60); AST ASPARTATE AMINOTRANSFERASE 363 IU/L (10-42); BUN - BLOOD UREA NITROGEN 24 mg/dL (6-20); CARBON DIOXIDE - CO2 25 mmol/L (21-32); CHLORIDE 90 mmol/L (101-111); GFR - MDRD 78 (>89); LIPASE 76 U/L (22-51); SODIUM 124 mmol/L (135-145); TOTAL PROTEIN 8.5 g/dL (6.7-8.2)
[2018-08-21 21:36] LABS: GLUCOSE 623 mg/dL (70-100)
[2018-08-21] MEDS ORDERED: LACTATED RINGERS 1,000 ML IV STA (21:40)
[2018-08-21 22:06] VITALS: BP 135/89
== END 2018-08-21 22:17 | disposition home or self-care (01) ==
LOC: ED 20:06
DX: E11.65 Type 2 diabetes mellitus with hyperglycemia (principal); T38.3X6A Underdosing of insulin and oral hypoglycemic [antidiabetic] drugs, initial encounter; Z91.128 Patient's intentional underdosing of medication regimen for other reason; Z79.4 Long term (current) use of insulin; K74.60 Unspecified cirrhosis of liver; B19.20 Unspecified viral hepatitis C without hepatic coma; I10 Essential (primary) hypertension; F17.200 Nicotine dependence, unspecified, uncomplicated
CPT/HCPCS: 36415; 80053; 82009; 82803; 83690; 85025; 96360; 99283; J7120

== ENCOUNTER 2018-09-08 19:54 | Outpatient (CLI) | payer MEDICAID | END 2018-09-08 19:55 | disposition short-term general hospital (02) | LOC: EMS 19:54 | PROVIDERS: ATTEND Surgery | DX: R07.9 Chest pain, unspecified (principal) | CPT/HCPCS: A0425; A0427; A0999 ==

== ENCOUNTER 2018-10-28 10:03 | Emergency (ER) | payer MEDICAID ==
[2018-10-28] MEDS ORDERED: SODIUM CHLORIDE 0.9% 1,000 ML IV ONE (12:07)
[2018-10-28] MEDS ORDERED: cefTRIAXone 1 GM in SODIUM CHLORIDE 0.9% MINIBAG 100 ML IV STA (12:07)
--- NOTE | 2018-10-28 12:12 | ED Physician Documentation ---
PD HPI URI - Stated complaint Stated Complaint: COUGH/NAUSEATED - Chief complaint Chief Complaint: Abd Pain - History obtained from History obtained from: Patient, Family - History of Present Illness Timing - onset: How many days ago (4) Timing duration: Days (4) Timing details: Abrupt onset, Still present Associated symptoms: Fever, Chills, Nasal congestion, Rhinorrhea, Swollen nodes, Dry cough, Other (polydypsia/polyuria) Contributing factors: Sick contact Improves by: Rest, Medication Similar symptoms before: Diagnosis (sinusistis) Recently seen: Not recently seen - Additional information Additional information: 53-year-old diabetic male has become ill with a cough congestion for the past 4 days. He has had fever and chills with this he is got a bit of a sore throat he has had elevation of his blood glucose to over 400 and he has been up to the bathroom quite a bit and drinking quite a bit. Review of Systems Constitutional: reports: Fever, Chills, Myalgias Eyes: denies: Decreased vision Ears: denies: Ear pain Nose: reports: Rhinorrhea / runny nose, Congestion Throat: reports: Sore throat Cardiac: denies: Chest pain / pressure, Palpitations Respiratory: reports: Cough. denies: Dyspnea GI: denies: Vomiting PD PAST MEDICAL HISTORY - Past Medical History Cardiovascular: Hypertension, High cholesterol Respiratory: None Neuro: None Endocrine/Autoimmune: Type 2 diabetes, HyPOthyroidism GI: GERD, Esophageal varices, Cirrhosis, Other : Frequency HEENT: None Psych: Depression, Anxiety, Post traumatic stress disorder Musculoskeletal: Chronic back pain Derm: None - Past Surgical History Past Surgical History: No General: Other - Present Medications Home Medications: Ambulatory Orders Medication Instructions Recorded Confirmed Levothyroxine Sodium [Synthroid] 150 mcg PO QDAC 08/06/17 10/24/18 Insulin Glargine [Lantus Solostar] 21 unit SQ DAILY PM 10/24/18 10/24/18 Insulin Lispro [Humalog Kwikpen 7 unit SUBQ TIDWM 10/24/18 10/24/18 U-100] metFORMIN [Glucophage] 1,000 mg PO BIDWM 10/24/18 10/24/18 Amox/Clav 875/125 [Augmentin] 1 each PO Q12H #20 tablet 10/28/18 - Allergies Allergies/Adverse Reactions: Allergies Allergy/AdvReac Type Severity Reaction Status Date / Time No Known Drug Allergies Allergy Verified 08/21/18 20:19 - Social History Does the pt smoke?: Yes Smoking Status: Current every day smoker Does the pt drink ETOH?: No Does the pt have substance abuse?: No - Immunizations Immunizations are current?: Yes - POLST Patient has POLST: Yes POLST Status: Full Code PD ED PE NORMAL - Vitals Vital signs reviewed: Yes (normal ) - General General: No acute distress, Well developed/nourished - HEENT HEENT: Atraumatic, PERRL, EOMI, Other (There is inflamation to the attic on the left and the right is not visible secondary to cerumen. ) - Neck Neck: Supple, no meningeal sign, No bony TTP - Cardiac Cardiac: RRR, No murmur - Respiratory Respiratory: No respiratory distress, Clear bilaterally - Abdomen Abdomen: Soft, Non tender - Back Back: No CVA TTP, No spinal TTP - Derm Derm: Normal color, No rash - Extremities Extremities: No deformity, No edema - Neuro Neuro: Alert and oriented X 3, slipman 2-12 intact, No motor deficit, No sensory deficit, Normal speech Eye Opening: Spontaneous Motor: Obeys Commands Verbal: Oriented GCS Score: 15 - Psych Psych: Normal mood, Normal affect Results - Vitals Vitals: Vital Signs - 24 hr 10/28/18 10/28/18 10:06 11:07 Temperature 36.6 C 37.7 C H Heart Rate 80 79 Respiratory 18 16 Rate Blood Pressure 104/80 114/77 O2 Saturation 100 97 Oxygen O2 Source Room air - EKG (time done) 1017 Rate: Rate (enter#) (76) Rhythm: NSR, LAE QRS: Low voltage Compare to prior EKG: Changed from prior EKG (SPT 05-10-17 rate has increased) Computer interpretation: Agree with computer - Labs Labs: Laboratory Tests 10/28/18 10/28/18 10/28/18 10:14 12:35 12:35 WBC RBC Hgb Hct MCV MCH MCHC RDW Plt Count MPV Neut # (Auto) Lymph # (Auto) [place] # (Auto) Eos # (Auto) Baso # (Auto) Absolute Nucleated RBC Nucleated RBC % Manual Slide Review Platelet Estimate Platelet Morphology RBC Morph Micro Appear Sodium 131 L Potassium 4.6 Chloride 99 L Carbon Dioxide 20 L Anion Gap 12.0 BUN 19 Creatinine 1.1 Estimated GFR (MDRD) 70 L Glucose 343 H POC Whole Bld Glucose 382 H Calcium 8.5 Total Bilirubin 1.6 H AST 313 H ALT 231 H Alkaline Phosphatase 134 H Troponin I < 0.04 Total Protein 7.3 Albumin 3.2 Globulin 4.1 Albumin/Globulin Ratio 0.8 L Lipase 69 H 10/28/18 13:01 WBC 2.8 L RBC 3.72 L Hgb 12.3 L Hct 36.5 L MCV 98.2 H MCH 33.1 H MCHC 33.7 RDW 14.8 Plt Count 31 L* MPV 12.1 H Neut # (Auto) 1.6 Lymph # (Auto) 1.0 L [place] # (Auto) 0.3 Eos # (Auto) 0.0 Baso # (Auto) 0.0 Absolute Nucleated RBC 0.00 Nucleated RBC % 0.2 Manual Slide Review Indicated Platelet Estimate DECREASED (<130,000) Platelet Morphology RARE GIANT PLATELETS RBC Morph Micro Appear NORMAL APPEARANCE Sodium Potassium Chloride Carbon Dioxide Anion Gap BUN Creatinine Estimated GFR (MDRD) Glucose POC Whole Bld Glucose Calcium Total Bilirubin AST ALT Alkaline Phosphatase Troponin I Total Protein Albumin Globulin Albumin/Globulin Ratio Lipase Procedures - IVC sono (time) 1205 Bedside IVC sono: IVC measures (cm) (1.09), IVC collapsed c insp (cm) (complete), Dehydration (est 1 liter deficit) PD MEDICAL DECISION MAKING - ED course Complexity details: considered differential, d/w patient, d/w family ED course: 53-year-old male with history of diabetes has left otitis on exam and has diabetes [id number]. He is found to be significantly dehydrated and IV is begun with saline. He is administered Rocephin as well. Departure - Departure Disposition: 01 Home, Self Care Clinical Impression: Dehydration Uncontrolled type 2 diabetes mellitus Qualifiers: Glycemic state: with hyperglycemia Qualified Code(s): E11.65 - Type 2 diabetes mellitus with hyperglycemia Otitis media Qualifiers: Otitis media type: suppurative Chronicity: acute Laterality: left Recurrence: not specified as recurrent Spontaneous tympanic membrane rupture: without spontaneous rupture Qualified Code(s): H66.002 - Acute suppurative otitis media without spontaneous rupture of ear drum, left ear Condition: Stable Instructions: ED Dehydration, ED Otitis Media Acute Adult, ED Hyperglycemia Diabetic Follow-Up: Vidya Lim DNP [Primary Care Provider] - Prescriptions: Amox/Clav 875/125 [Augmentin] 1 each PO Q12H #20 tablet
[2018-10-28 13:05] LABS: ALBUMIN 3.2 g/dL (3.2-5.5); ALBUMIN/GLOBULIN RATIO 0.8 (1.0-2.2); BILIRUBIN,TOTAL 1.6 mg/dL (0.2-1.0); CALCIUM 8.5 mg/dL (8.5-10.3); CREATININE 1.1 mg/dL (0.6-1.2); TOTAL PROTEIN 7.3 g/dL (6.7-8.2)
[2018-10-28 13:12] LABS: BASOPHILS % (AUTO) 0.6 %; EOSINOPHILS % (AUTO) 0.7 %; HGB - HEMOGLOBIN 12.3 g/dL (14.0-18.0); LYMPHOCYTES % (AUTO) 33.9 %; MEAN CORPUSCULAR HEMOGLOBIN 33.1 pg (27.0-31.0); MEAN CORPUSCULAR HGB CONC 33.7 g/dL (32.0-36.0); MEAN CORPUSCULAR VOLUME 98.2 fL (80.0-94.0); MEAN PLATELET VOLUME 12.1 fL (7.4-11.4); MONOCYTES # (AUTO) 0.3 10^3/uL (0.0-1.0); NEUTROPHILS # (AUTO) 1.6 10^3/uL (1.5-6.6); NEUTROPHILS % (AUTO) 54.8 %; RED BLOOD COUNT 3.72 10^6/uL (4.70-6.10); RED CELL DISTRIBUTION WIDTH 14.8 % (12.0-15.0); WHITE BLOOD COUNT 2.8 x10^3/uL (4.8-10.8)
[2018-10-28] MEDS ORDERED: INSULIN REGULAR HUMAN 100 UNIT/1 ML 10 ML MDV IVP STA (13:23)
[2018-10-28 13:29] LABS: PLT - PLATELET COUNT 31 10^3/uL (130-450)
[2018-10-28 13:30] LABS: PLATELET ESTIMATE, MANUAL DECREASED (<130,000) (NORMAL); PLATELET MORPHOLOGY RARE GIANT PLATELETS (NORMAL); RBC MORPHOLOGY (MULTIPLE) NORMAL APPEARANCE (NORMAL)
[2018-10-28 13:42] VITALS: BP 125/64
== END 2018-10-28 13:46 | disposition home or self-care (01) ==
LOC: ED 10:03
DX: E86.0 Dehydration (principal); E11.65 Type 2 diabetes mellitus with hyperglycemia; I10 Essential (primary) hypertension; E78.00 Pure hypercholesterolemia, unspecified; E03.9 Hypothyroidism, unspecified; Z79.4 Long term (current) use of insulin; F17.200 Nicotine dependence, unspecified, uncomplicated
CPT/HCPCS: 36415; 80053; 83690; 84484; 85025; 93005; 96365; 99283; J1815

== ENCOUNTER 2018-11-08 08:00 | Outpatient (CLI) | payer MEDICAID ==
[2018-11-08 12:50] LABS: BASOPHILS % (AUTO) 0.5 %; EOSINOPHILS # (AUTO) 0.1 10^3/uL (0.0-0.7); EOSINOPHILS % (AUTO) 3.6 %; HGB - HEMOGLOBIN 12.1 g/dL (14.0-18.0); LYMPHOCYTES % (AUTO) 29.9 %; MEAN CORPUSCULAR HEMOGLOBIN 32.6 pg (27.0-31.0); MEAN CORPUSCULAR HGB CONC 33.4 g/dL (32.0-36.0); MEAN CORPUSCULAR VOLUME 97.5 fL (80.0-94.0); MEAN PLATELET VOLUME 10.7 fL (7.4-11.4); MONOCYTES # (AUTO) 0.2 10^3/uL (0.0-1.0); MONOCYTES % (AUTO) 6.9 %; NEUTROPHILS # (AUTO) 2.1 10^3/uL (1.5-6.6); NEUTROPHILS % (AUTO) 59.1 %; PLT - PLATELET COUNT 80 10^3/uL (130-450); RED BLOOD COUNT 3.72 10^6/uL (4.70-6.10); RED CELL DISTRIBUTION WIDTH 14.8 % (12.0-15.0); WHITE BLOOD COUNT 3.5 x10^3/uL (4.8-10.8)
[2018-11-08 13:10] LABS: % IRON SATURATION 23 % (20-50); ALBUMIN 3.3 g/dL (3.2-5.5); ALBUMIN/GLOBULIN RATIO 0.8 (1.0-2.2); ALKALINE PHOSPHATASE 102 IU/L (42-121); ALT ALANINE AMINOTRANSFERASE 59 IU/L (10-60); AST ASPARTATE AMINOTRANSFERASE 85 IU/L (10-42); BILIRUBIN,TOTAL 1.3 mg/dL (0.2-1.0); BUN - BLOOD UREA NITROGEN 16 mg/dL (6-20); CALCIUM 9.1 mg/dL (8.5-10.3); CARBON DIOXIDE - CO2 25 mmol/L (21-32); CHLORIDE 105 mmol/L (101-111); CHOL/HDL RATIO 3.6 (<5.0); CHOLESTEROL 186 mg/dL; GFR - MDRD 78 (>89); GLUCOSE 166 mg/dL (70-100); HDL CHOLESTEROL 52 mg/dL; IRON 84 ug/dL (45-182); LDL CHOLESTEROL,CALCULATED 115 mg/dL; LDL/HDL RATIO 2.2 (<3.6); SODIUM 137 mmol/L (135-145); TOTAL IRON BINDING CAPACITY 365 ug/dL (250-450); TOTAL PROTEIN 7.7 g/dL (6.7-8.2); TRANSFERRIN 261 mg/dL (180-329); VLDL CHOLESTEROL 19 mg/dL
[2018-11-08 13:21] LABS: FERRITIN 71.7 ng/mL (23.9-336.2); HB2 TOTAL 12.7 g/dL; HEMOGLOBIN A1C 1.38 g/dL; HEMOGLOBIN A1C % 12.1 % (4.6-6.2)
[2018-11-08 13:25] LABS: FOLATE 13.14 ng/mL (5.90 - >24.8)
[2018-11-08 13:57] LABS: THYROID STIMULATING HORMONE 129.66 uIU/mL (0.34-5.60)
== END 2018-11-08 23:59 | disposition home or self-care (01) ==
LOC: LAB.N 08:00
PROVIDERS: ATTEND Nurse Practitioner
DX: E11.65 Type 2 diabetes mellitus with hyperglycemia (principal); Z79.4 Long term (current) use of insulin; D53.9 Nutritional anemia, unspecified
CPT/HCPCS: 36415; 80053; 80061; 82043; 82570; 82607; 82728; 82746; 83036; 83540; 83721; 84443; 84466; 85025

== ENCOUNTER 2018-11-13 08:00 | Outpatient (CLI) | payer MEDICAID ==
[2018-11-13 19:19] LABS: CREATININE,URINE 117.6 mg/dL; MICROALBUMIN,URINE 0.7 mg/dL (0-300.0)
== END 2018-11-13 23:59 | disposition home or self-care (01) ==
LOC: LAB.R 08:00
PROVIDERS: ATTEND Nurse Practitioner
DX: E11.65 Type 2 diabetes mellitus with hyperglycemia (principal)
CPT/HCPCS: 82043; 82570

== ENCOUNTER 2019-02-13 08:00 | Outpatient (CLI) | payer MEDICAID ==
[2019-02-14 13:22] LABS: HEPATITIS C ANTIBODY REACTIVE (NON-REACTIVE)
[2019-02-15 13:26] LABS: HCV RNA QNT 1.94 Log IU/mL (NOT DETECTED)
[2019-02-16 13:46] LABS: HCV RNA QNT <1.18 DETECTED Log IU/mL (NOT DETECTED); HCV RNA QUANT RT PCR <15 DETECTED IU/mL (NOT DETECTED)
== END 2019-02-13 08:01 | disposition home or self-care (01) ==
LOC: LAB.N 08:00
PROVIDERS: ATTEND Nurse Practitioner Gerontology
DX: B18.2 Chronic viral hepatitis C (principal)
CPT/HCPCS: 36415; 86803; 87522

== ENCOUNTER 2019-03-05 11:35 | Emergency (ER) | payer MEDICAID ==
[2019-03-05 12:39] LABS: BASOPHILS # (AUTO) 0.1 10^3/uL (0.0-0.1); BASOPHILS % (AUTO) 0.8 %; EOSINOPHILS # (AUTO) 0.4 10^3/uL (0.0-0.7); EOSINOPHILS % (AUTO) 5.9 %; HGB - HEMOGLOBIN 12.7 g/dL (14.0-18.0); LYMPHOCYTES # (AUTO) 1.8 10^3/uL (1.5-3.5); LYMPHOCYTES % (AUTO) 28.2 %; MEAN CORPUSCULAR HGB CONC 33.6 g/dL (32.0-36.0); MEAN CORPUSCULAR VOLUME 95.2 fL (80.0-94.0); MEAN PLATELET VOLUME 12.8 fL (7.4-11.4); MONOCYTES # (AUTO) 0.4 10^3/uL (0.0-1.0); MONOCYTES % (AUTO) 6.3 %; NEUTROPHILS # (AUTO) 3.8 10^3/uL (1.5-6.6); NEUTROPHILS % (AUTO) 58.2 %; PLT - PLATELET COUNT 54 10^3/uL (130-450); RED BLOOD COUNT 3.97 10^6/uL (4.70-6.10); RED CELL DISTRIBUTION WIDTH 14.4 % (12.0-15.0); WHITE BLOOD COUNT 6.5 x10^3/uL (4.8-10.8)
--- NOTE | 2019-03-05 12:47 | ED Physician Documentation ---
History of Present Illness - Stated complaint Stated Complaint: BLOOD SUGAR ISSUES - Chief complaint Chief Complaint: Abd Pain - History obtained from History obtained from: Patient - History of Present Illness Pain level max: 0 Pain level now: 0 - Additonal information Additional information: states high blood sugars today. Has had vomiting and diarrhea for the past week. Unsure what types of insulin he takes. States his blood sugar was over 600 today. States normally in the 200's. States checks one random blood sugar per day. Uses marijuana a few times per week. No fevers. No abd pain. Nothing makes it better or worse Review of Systems Constitutional: denies: Fever, Chills Throat: denies: Sore throat Cardiac: denies: Chest pain / pressure Respiratory: denies: Dyspnea, Cough, Hemoptysis, Wheezing GI: reports: Vomiting, Diarrhea. denies: Hematemesis, Bloody / black stool : denies: Dysuria Skin: denies: Rash Musculoskeletal: denies: Neck pain, Back pain Neurologic: denies: Focal weakness, Numbness, Headache PD PAST MEDICAL HISTORY - Past Medical History Cardiovascular: Hypertension, High cholesterol Respiratory: None Neuro: None Endocrine/Autoimmune: Type 2 diabetes, HyPOthyroidism GI: GERD, Esophageal varices, Cirrhosis, Other : Frequency HEENT: None Psych: Depression, Anxiety, Post traumatic stress disorder Musculoskeletal: Chronic back pain Derm: None - Past Surgical History Past Surgical History: No General: Other - Present Medications Home Medications: Ambulatory Orders Medication Instructions Recorded Confirmed Levothyroxine Sodium [Synthroid] 150 mcg PO QDAC 08/06/17 10/24/18 Insulin Glargine [Lantus Solostar] 21 unit SQ DAILY PM 10/24/18 10/24/18 Insulin Lispro [Humalog Kwikpen 7 unit SUBQ TIDWM 10/24/18 10/24/18 U-100] metFORMIN [Glucophage] 1,000 mg PO BIDWM 10/24/18 10/24/18 Amox/Clav 875/125 [Augmentin] 1 each PO Q12H #20 tablet 10/28/18 Metoclopramide [Reglan] 10 mg PO Q6H PRN #10 tablet 03/05/19 - Allergies Allergies/Adverse Reactions: Allergies Allergy/AdvReac Type Severity Reaction Status Date / Time No Known Drug Allergies Allergy Verified 07/15/19 11:46 - Social History Does the pt smoke?: Yes Smoking Status: Current every day smoker Does the pt drink ETOH?: No Does the pt have substance abuse?: No - Immunizations Immunizations are current?: Yes - POLST Patient has POLST: Yes POLST Status: Full Code PD ED PE NORMAL - Vitals Vital signs reviewed: Yes - General General: Alert and oriented X 3, No acute distress, Well developed/nourished - HEENT HEENT: PERRL, Moist mucous membranes - Neck Neck: Supple, no meningeal sign - Cardiac Cardiac: RRR, Strong equal pulses - Respiratory Respiratory: No respiratory distress, Clear bilaterally - Abdomen Abdomen: Normal bowel sounds, Soft, Non tender, Non distended - Back Back: No spinal TTP - Derm Derm: Warm and dry - Extremities Extremities: No edema - Neuro Neuro: Alert and oriented X 3 - Psych Psych: Normal mood, Normal affect Results - Vitals Vitals: Vital Signs - 24 hr 03/05/19 03/05/19 03/05/19 11:43 12:33 14:21 Temperature 36.9 C Heart Rate 64 67 82 Respiratory 17 17 16 Rate Blood Pressure 123/70 122/78 138/96 H O2 Saturation 99 98 98 Oxygen O2 Source Room air - Labs Labs: Laboratory Tests 03/05/19 03/05/19 03/05/19 11:43 12:25 12:25 WBC 6.5 RBC 3.97 L Hgb 12.7 L Hct 37.8 L MCV 95.2 H MCH 32.0 H MCHC 33.6 RDW 14.4 Plt Count 54 L MPV 12.8 H Neut # (Auto) 3.8 Lymph # (Auto) 1.8 [place] # (Auto) 0.4 Eos # (Auto) 0.4 Baso # (Auto) 0.1 Absolute Nucleated RBC 0.00 Nucleated RBC % 0.0 VBG pH VBG pCO2 VBG pO2 VBG HCO3 VBG Total CO2 VBG O2 Saturation VBG Base Excess Sodium 133 L Potassium 4.6 Chloride 98 L Carbon Dioxide 21 Anion Gap 14.0 H BUN 27 H Creatinine 1.2 Estimated GFR (MDRD) 63 L Glucose 427 H POC Whole Bld Glucose 380 H Calcium 9.8 Total Bilirubin 1.8 H AST 69 H ALT 48 Alkaline Phosphatase 102 Total Protein 8.5 H Albumin 3.7 Globulin 4.8 H Albumin/Globulin Ratio 0.8 L Lipase 63 H Urine Color Urine Clarity Urine pH Ur Specific [place] Urine Protein Urine Glucose (UA) Urine Ketones Urine Occult Blood Urine Nitrite Urine Bilirubin Urine Urobilinogen Ur Leukocyte Esterase Ur Microscopic Review Urine Culture Comments Serum Ketones 03/05/19 03/05/19 03/05/19 12:25 12:25 12:45 WBC RBC Hgb Hct MCV MCH MCHC RDW Plt Count MPV Neut # (Auto) Lymph # (Auto) [place] # (Auto) Eos # (Auto) Baso # (Auto) Absolute Nucleated RBC Nucleated RBC % VBG pH 7.356 VBG pCO2 38.8 L VBG pO2 29.4 VBG HCO3 21.2 L VBG Total CO2 22.4 L VBG O2 Saturation 53.3 L VBG Base Excess -3.9 L Sodium Potassium Chloride Carbon Dioxide Anion Gap BUN Creatinine Estimated GFR (MDRD) Glucose POC Whole Bld Glucose Calcium Total Bilirubin AST ALT Alkaline Phosphatase Total Protein Albumin Globulin Albumin/Globulin Ratio Lipase Urine Color YELLOW Urine Clarity CLEAR Urine pH 6.0 Ur Specific [place] 1.020 Urine Protein NEGATIVE Urine Glucose (UA) >=1000 H Urine Ketones NEGATIVE Urine Occult Blood NEGATIVE Urine Nitrite NEGATIVE Urine Bilirubin NEGATIVE Urine Urobilinogen 0.2 (NORMAL) Ur Leukocyte Esterase NEGATIVE Ur Microscopic Review NOT INDICATED Urine Culture Comments NOT INDICATED Serum Ketones NEGATIVE 03/05/19 13:50 WBC RBC Hgb Hct MCV MCH MCHC RDW Plt Count MPV Neut # (Auto) Lymph # (Auto) [place] # (Auto) Eos # (Auto) Baso # (Auto) Absolute Nucleated RBC Nucleated RBC % VBG pH VBG pCO2 VBG pO2 VBG HCO3 VBG Total CO2 VBG O2 Saturation VBG Base Excess Sodium Potassium Chloride Carbon Dioxide Anion Gap BUN Creatinine Estimated GFR (MDRD) Glucose POC Whole Bld Glucose 357 H Calcium Total Bilirubin AST ALT Alkaline Phosphatase Total Protein Albumin Globulin Albumin/Globulin Ratio Lipase Urine Color Urine Clarity Urine pH Ur Specific [place] Urine Protein Urine Glucose (UA) Urine Ketones Urine Occult Blood Urine Nitrite Urine Bilirubin Urine Urobilinogen Ur Leukocyte Esterase Ur Microscopic Review Urine Culture Comments Serum Ketones PD MEDICAL DECISION MAKING - ED course Complexity details: reviewed results, re-evaluated patient, considered differential, d/w patient ED course: 53-year-old male with apparent viral gastroenteritis. He is well-appearing, nontoxic. Afebrile. Feels better after IV fluids. Abdomen is soft, nontender nondistended. Blood sugar decreased with IV fluids and insulin. We will have him keep a log of his insulin at home. No DKA. Normal mentation. Tolerating p.o. without difficulty. Patient counseled regarding signs and symptoms for which I believe and urgent re-evaluation would be necessary. Patient with good understanding of and agreement to plan and is comfortable going home at this time This document was made in part using voice recognition software. While efforts are made to proofread this document, sound alike and grammatical errors may occur. Departure - Departure Disposition: 01 Home, Self Care Clinical Impression: Viral gastroenteritis, Hyperglycemia Condition: Good Instructions: ED Hyperglycemia Diabetic, ED Gastroenteritis Viral Follow-Up: Karina Stevens ARNP [Primary Care Provider] - Within 3 Days Prescriptions: Metoclopramide [Reglan] 10 mg PO Q6H PRN #10 tablet PRN Reason: Nausea / Vomiting Comments: Keep a log of your blood sugar readings for your doctor. Return if you worsen. Drink plenty of fluids. Discharge Date/Time: 03/05/19 14:22
[2019-03-05] MEDS ORDERED: ONDANSETRON 4 MG/2 ML VIAL IVP STA (12:48)
[2019-03-05] MEDS ORDERED: SODIUM CHLORIDE 0.9% 1,000 ML IV ONE ×3 (12:48→12:55)
[2019-03-05 12:49] LABS: VBG PCO2 38.8 mmHg (41-51); VBG PH 7.356 (7.31-7.41); VBG PO2 29.4 mmHg (25-47); VBG TOTAL CO2 22.4 mmol/L (24-29)
[2019-03-05 12:50] LABS: VBG BASE EXCESS -3.9 mmol/L (-2 - +2)
[2019-03-05 12:52] LABS: ALBUMIN 3.7 g/dL (3.2-5.5); ALBUMIN/GLOBULIN RATIO 0.8 (1.0-2.2); BILIRUBIN,TOTAL 1.8 mg/dL (0.2-1.0); CALCIUM 9.8 mg/dL (8.5-10.3); CREATININE 1.2 mg/dL (0.6-1.2); TOTAL PROTEIN 8.5 g/dL (6.7-8.2)
[2019-03-05] MEDS ORDERED: INSULIN REGULAR HUMAN 100 UNIT/1 ML 10 ML MDV SUBQ STA (12:54)
[2019-03-05 13:14] LABS: BILIRUBIN,URINE NEGATIVE (NEGATIVE); GLUCOSE, URINE (UA) >=1000 mg/dL (NEGATIVE); KETONES,URINE (UA) NEGATIVE (NEGATIVE); LEUKOCYTE ESTERASE, URINE NEGATIVE (NEGATIVE); NITRITE,URINE NEGATIVE (NEGATIVE); OCCULT BLOOD,URINE NEGATIVE (NEGATIVE); PROTEIN,URINE NEGATIVE (NEGATIVE); UROBILINOGEN,URINE 0.2 (NORMAL) E.U./dL (NORMAL)
[2019-03-05 13:17] LABS: CLARITY,URINE CLEAR (CLEAR)
[2019-03-05 14:21] VITALS: BP 138/96
== END 2019-03-05 14:22 | disposition home or self-care (01) ==
LOC: ED 11:35
DX: E11.65 Type 2 diabetes mellitus with hyperglycemia (principal); Z79.4 Long term (current) use of insulin; A08.4 Viral intestinal infection, unspecified; I10 Essential (primary) hypertension; F17.200 Nicotine dependence, unspecified, uncomplicated
CPT/HCPCS: 36415; 80053; 81003; 82009; 82803; 83690; 85025; 96361; 96374; 99283; 99284; J1815; 81001; 87086

== ENCOUNTER 2019-03-08 10:33 | Outpatient (CLI) | payer MEDICAID | END 2019-03-08 23:59 | disposition home or self-care (01) | LOC: LAB.N 10:33 | PROVIDERS: ATTEND Nurse Practitioner Gerontology | DX: E03.9 Hypothyroidism, unspecified (principal) | CPT/HCPCS: 36415; 84443 ==

== ENCOUNTER 2019-07-10 08:00 | Outpatient (CLI) | payer MEDICAID ==
[2019-07-10 13:42] LABS: BASOPHILS # (AUTO) 0.1 10^3/uL (0.0-0.1); BASOPHILS % (AUTO) 1.1 %; EOSINOPHILS # (AUTO) 0.3 10^3/uL (0.0-0.7); EOSINOPHILS % (AUTO) 5.9 %; HGB - HEMOGLOBIN 12.2 g/dL (14.0-18.0); LYMPHOCYTES # (AUTO) 1.4 10^3/uL (1.5-3.5); LYMPHOCYTES % (AUTO) 26.3 %; MEAN CORPUSCULAR HEMOGLOBIN 32.4 pg (27.0-31.0); MEAN CORPUSCULAR HGB CONC 32.6 g/dL (32.0-36.0); MEAN CORPUSCULAR VOLUME 99.5 fL (80.0-94.0); MEAN PLATELET VOLUME 13.2 fL (7.4-11.4); MONOCYTES # (AUTO) 0.3 10^3/uL (0.0-1.0); MONOCYTES % (AUTO) 5.7 %; NEUTROPHILS # (AUTO) 3.3 10^3/uL (1.5-6.6); NEUTROPHILS % (AUTO) 60.8 %; PLT - PLATELET COUNT 59 10^3/uL (130-450); RED BLOOD COUNT 3.76 10^6/uL (4.70-6.10); RED CELL DISTRIBUTION WIDTH 15.6 % (12.0-15.0); WHITE BLOOD COUNT 5.5 x10^3/uL (4.8-10.8)
[2019-07-10 13:57] LABS: ALBUMIN 3.7 g/dL (3.2-5.5); ALBUMIN/GLOBULIN RATIO 0.8 (1.0-2.2); BILIRUBIN,TOTAL 3.4 mg/dL (0.2-1.0); CALCIUM 9.5 mg/dL (8.5-10.3); TOTAL PROTEIN 8.3 g/dL (6.7-8.2)
== END 2019-07-10 23:59 | disposition home or self-care (01) ==
LOC: LAB.N 08:00
PROVIDERS: ATTEND Family Medicine
DX: R10.9 Unspecified abdominal pain (principal)
CPT/HCPCS: 36415; 80053; 82150; 83690; 85025

== ENCOUNTER 2019-07-10 10:19 | Outpatient (CLI) | payer MEDICAID ==
--- NOTE | 2019-07-22 22:42 | XRAY Report ---
Reason: abdominal discomfort Procedure Date: 07/10/2019 Accession Number: [id number] / [id number] Procedure: XRN - Abdomen Acute CPT Code: Final Report FULL RESULT: EXAM: ABDOMINAL SERIES AND PA CHEST EXAM DATE: 07/10/2019 11:06 AM. CLINICAL HISTORY: Abdominal discomfort. COMPARISON: None. TECHNIQUE: 2 views abdomen and 1 view chest. FINDINGS: CHEST: Lungs/Pleura: No focal opacities. No effusion or pneumothorax. Mediastinum: Within exam limitations, cardiomediastinal contour is normal. ABDOMEN: Bowel Gas Pattern: There is no gas distention of the small bowel no other colon. Free Air: None. Other: There is a rounded calcific density overlying the right upper abdomen likely representing a gallstone. There is no free air in the abdomen and no other pelvis. No free air under the hemidiaphragms. IMPRESSION: 1. No infiltrates. 2. No evidence for bowel obstruction. 3. Probable cholelithiasis. RADIA
== END 2019-07-10 10:20 | disposition home or self-care (01) ==
LOC: DI.N 10:19
PROVIDERS: ATTEND Family Medicine
DX: R10.9 Unspecified abdominal pain (principal)
CPT/HCPCS: 36415; 74022; 80053; 82150; 83690; 85025

== ENCOUNTER 2019-07-31 15:26 | Emergency (ER) | payer MEDICAID ==
[2019-07-31 16:12] LABS: BASOPHILS % (AUTO) 0.7 %; EOSINOPHILS # (AUTO) 0.4 10^3/uL (0.0-0.7); EOSINOPHILS % (AUTO) 6.4 %; HGB - HEMOGLOBIN 11.2 g/dL (14.0-18.0); LYMPHOCYTES # (AUTO) 1.3 10^3/uL (1.5-3.5); LYMPHOCYTES % (AUTO) 22.3 %; MEAN CORPUSCULAR HEMOGLOBIN 32.1 pg (27.0-31.0); MEAN CORPUSCULAR HGB CONC 32.3 g/dL (32.0-36.0); MEAN CORPUSCULAR VOLUME 99.4 fL (80.0-94.0); MEAN PLATELET VOLUME 12.7 fL (7.4-11.4); MONOCYTES # (AUTO) 0.3 10^3/uL (0.0-1.0); MONOCYTES % (AUTO) 4.9 %; NEUTROPHILS # (AUTO) 3.8 10^3/uL (1.5-6.6); NEUTROPHILS % (AUTO) 65.4 %; PLT - PLATELET COUNT 39 10^3/uL (130-450); RED BLOOD COUNT 3.49 10^6/uL (4.70-6.10); WHITE BLOOD COUNT 5.7 x10^3/uL (4.8-10.8)
[2019-07-31 16:22] LABS: ALBUMIN 3.5 g/dL (3.2-5.5); ALBUMIN/GLOBULIN RATIO 0.7 (1.0-2.2); BILIRUBIN,TOTAL 2.6 mg/dL (0.2-1.0); CALCIUM 9.7 mg/dL (8.5-10.3); CREATININE 1.1 mg/dL (0.6-1.2); TOTAL PROTEIN 8.2 g/dL (6.7-8.2)
[2019-07-31 16:36] LABS: PLATELET MORPHOLOGY NORMAL APPEARANCE (NORMAL)
[2019-07-31 16:37] LABS: PLATELET ESTIMATE, MANUAL DECREASED (<130,000) (NORMAL); RBC MORPHOLOGY (MULTIPLE) NORMAL APPEARANCE (NORMAL)
--- NOTE | 2019-07-31 18:06 | ED Physician Documentation ---
PD HPI ABD PAIN - Stated complaint Stated Complaint: AB PX - Chief complaint Chief Complaint: Abd Pain - History obtained from History obtained from: Patient - History of Present Illness Timing - onset: How many weeks ago (2) Timing - duration: Weeks (2 weeks of upper abd pains. Seen in office and had xray of abd with gallstone seen. No U/S. has had continued pain despite acid reducing meds.) Timing - details: Gradual onset, Waxing and waning Quality: Cramping, Aching, Pain Location: RUQ, Epigastric Worsened by: Eating Associated symptoms: Nausea. No: Fever, Vomiting, Diarrhea, Melena Similar symptoms before: Has not had sx before (history of hepatitis and has varices that get banded every 2 weeks. history of gastritis. No pancreatitis.) Recently seen: Clinic Review of Systems Constitutional: denies: Fever, Chills Nose: denies: Rhinorrhea / runny nose, Congestion Throat: denies: Sore throat Respiratory: denies: Cough GI: reports: Abdominal Pain, Nausea. denies: Vomiting, Diarrhea, Bloody / black stool : denies: Dysuria, Frequency Skin: denies: Rash, Lesions PD PAST MEDICAL HISTORY - Past Medical History Cardiovascular: Hypertension, High cholesterol Respiratory: None Neuro: None Endocrine/Autoimmune: Type 2 diabetes, HyPOthyroidism GI: GERD, Esophageal varices, Cirrhosis, Other : Frequency HEENT: None Psych: Depression, Anxiety, Post traumatic stress disorder Musculoskeletal: Chronic back pain Derm: None - Past Surgical History Past Surgical History: No General: Other - Present Medications Home Medications: Ambulatory Orders Medication Instructions Recorded Confirmed Levothyroxine Sodium [Synthroid] 150 mcg PO QDAC 08/06/17 10/24/18 Insulin Glargine [Lantus Solostar] 21 unit SQ DAILY PM 10/24/18 10/24/18 Insulin Lispro [Humalog Kwikpen 7 unit SUBQ TIDWM 10/24/18 10/24/18 U-100] metFORMIN [Glucophage] 1,000 mg PO BIDWM 10/24/18 10/24/18 Amox/Clav 875/125 [Augmentin] 1 each PO Q12H #20 tablet 10/28/18 Metoclopramide [Reglan] 10 mg PO Q6H PRN #10 tablet 03/05/19 Famotidine 20 mg PO DAILY #30 tablet 07/31/19 Ondansetron Odt [Zofran] 4 mg TL Q6H PRN #20 tablet 07/31/19 Sucralfate [Carafate] 1 gm PO ACHS #60 tablet 07/31/19 - Allergies Allergies/Adverse Reactions: Allergies Allergy/AdvReac Type Severity Reaction Status Date / Time No Known Drug Allergies Allergy Verified 03/05/19 11:46 - Social History Does the pt smoke?: Yes Smoking Status: Current every day smoker Does the pt drink ETOH?: No Does the pt have substance abuse?: No - Immunizations Immunizations are current?: Yes - POLST Patient has POLST: Yes POLST Status: Full Code PD ED PE NORMAL - Vitals Vital signs reviewed: Yes - General General: Alert and oriented X 3, Well developed/nourished - HEENT HEENT: Pharynx benign - Neck Neck: Supple, no meningeal sign, No adenopathy - Cardiac Cardiac: RRR, No murmur - Respiratory Respiratory: Clear bilaterally - Abdomen Abdomen: Soft, Non distended, No organomegaly, Other (tender epigastric and RUQ without percussion nor rebound tenderness. Some local guarding. ) - Male Male : Deferred - Rectal Rectal: Deferred - Back Back: No CVA TTP - Derm Derm: Normal color, Warm and dry - Extremities Extremities: No edema, No calf tenderness / cord - Neuro Neuro: Alert and oriented X 3, No motor deficit, Normal speech Results - Vitals Vitals: Oxygen O2 Source Room air - Labs Labs: Laboratory Tests 07/31/19 07/31/19 07/31/19 16:02 16:02 16:02 WBC 5.7 RBC 3.49 L Hgb 11.2 L Hct 34.7 L MCV 99.4 H MCH 32.1 H MCHC 32.3 RDW 15.0 Plt Count 39 L MPV 12.7 H Neut # (Auto) 3.8 Lymph # (Auto) 1.3 L [place] # (Auto) 0.3 Eos # (Auto) 0.4 Baso # (Auto) 0.0 Absolute Nucleated RBC 0.00 Nucleated RBC % 0.0 Manual Slide Review Indicated WBC Morphology NORMAL APPEARANCE Platelet Estimate DECREASED (<130,000) Platelet Morphology NORMAL APPEARANCE RBC Morph Micro Appear NORMAL APPEARANCE Sodium 131 L Potassium 4.9 Chloride 97 L Carbon Dioxide 27 Anion Gap 7.0 BUN 19 Creatinine 1.1 Estimated GFR (MDRD) 70 L Glucose 486 H Calcium 9.7 Total Bilirubin 2.6 H AST 139 H ALT 140 H Alkaline Phosphatase 115 Total Protein 8.2 Albumin 3.5 Globulin 4.7 H Albumin/Globulin Ratio 0.7 L Lipase 61 H TSH 97.75 H Urine Color Urine Clarity Urine pH Ur Specific [place] Urine Protein Urine Glucose (UA) Urine Ketones Urine Occult Blood Urine Nitrite Urine Bilirubin Urine Urobilinogen Ur Leukocyte Esterase Ur Microscopic Review Urine Culture Comments 07/31/19 19:12 WBC RBC Hgb Hct MCV MCH MCHC RDW Plt Count MPV Neut # (Auto) Lymph # (Auto) [place] # (Auto) Eos # (Auto) Baso # (Auto) Absolute Nucleated RBC Nucleated RBC % Manual Slide Review WBC Morphology Platelet Estimate Platelet Morphology RBC Morph Micro Appear Sodium Potassium Chloride Carbon Dioxide Anion Gap BUN Creatinine Estimated GFR (MDRD) Glucose Calcium Total Bilirubin AST ALT Alkaline Phosphatase Total Protein Albumin Globulin Albumin/Globulin Ratio Lipase TSH Urine Color YELLOW Urine Clarity CLEAR Urine pH 6.5 Ur Specific [place] 1.010 Urine Protein NEGATIVE Urine Glucose (UA) >=1000 H Urine Ketones NEGATIVE Urine Occult Blood NEGATIVE Urine Nitrite NEGATIVE Urine Bilirubin NEGATIVE Urine Urobilinogen 0.2 (NORMAL) Ur Leukocyte Esterase NEGATIVE Ur Microscopic Review NOT INDICATED Urine Culture Comments NOT INDICATED PD MEDICAL DECISION MAKING - ED course Complexity details: reviewed results (stable chronic liver enzymes elevations. ), re-evaluated patient (Awaiting U/S and patient says he needs to leave. Will give meds for pain and treat with Carafate too. To have him f/u with PMD regarding U/S and further assess gallbladder. He says he sees his GI every 2 weeks for scoping to band varices. ), considered differential (consider gastritis/ulcer vs pancreatitis or gallbladder process. Will get labs and U/S. ), d/w patient Departure - Departure Disposition: 01 Home, Self Care Clinical Impression: Upper abdominal pain Nausea & vomiting Qualifiers: Vomiting type: unspecified Vomiting Intractability: non-intractable Qualified Code(s): R11.2 - Nausea with vomiting, unspecified Condition: Stable Instructions: ED Abdominal Pain Unkn Cause Follow-Up: JALIL ELIAS MD [Primary Care Provider] - Prescriptions: Famotidine 20 mg PO DAILY #30 tablet Ondansetron Odt [Zofran] 4 mg TL Q6H PRN #20 tablet PRN Reason: Nausea / Vomiting Sucralfate [Carafate] 1 gm PO ACHS #60 tablet Comments: Frequent fluids to remain well-hydrated. Low fatty foods and no spicy foods. Follow-up with your primary care in the clinic or your GI specialist regarding an ultrasound to better evaluate your gallbladder. Meanwhile we will try some acid reducing medicine famotidine daily and sucralfate to coat the stomach. Add ondansetron if needed for nausea. See how much improvement you have with these medicines while getting further evaluation of your gallbladder. Discharge Date/Time: 07/31/19 19:16
[2019-07-31] MEDS ORDERED: MAG HYDROX/AL HYDROX/SIMETH 30 ML UDC PO STA (18:21)
[2019-07-31] MEDS ORDERED: FAMOTIDINE 20 MG TABLET PO STA (18:21)
[2019-07-31] MEDS ORDERED: LIDOCAINE VISCOUS 2% 15 ML UDC MM STA (18:21)
[2019-07-31 19:16] VITALS: BP 128/80
[2019-07-31 19:23] LABS: BILIRUBIN,URINE NEGATIVE (NEGATIVE); GLUCOSE, URINE (UA) >=1000 mg/dL (NEGATIVE); KETONES,URINE (UA) NEGATIVE (NEGATIVE); LEUKOCYTE ESTERASE, URINE NEGATIVE (NEGATIVE); NITRITE,URINE NEGATIVE (NEGATIVE); OCCULT BLOOD,URINE NEGATIVE (NEGATIVE); PH,URINE 6.5 PH (5.0-7.5); PROTEIN,URINE NEGATIVE (NEGATIVE); UROBILINOGEN,URINE 0.2 (NORMAL) E.U./dL (NORMAL)
[2019-07-31 19:25] LABS: CLARITY,URINE CLEAR (CLEAR)
--- NOTE | 2019-07-31 20:00 | Ultrasound Report ---
Reason: upper abd pain vomiting Procedure Date: 07/31/2019 Accession Number: [id number] / [id number] Procedure: US - Abdomen Limited CPT Code: Final Report FULL RESULT: EXAM: ABDOMEN ULTRASOUND LIMITED, RUQ EXAM DATE: 07/31/2019 07:24 PM. CLINICAL HISTORY: Upper abdominal pain and vomiting. COMPARISON: None. TECHNIQUE: Real-time scanning was performed with static images obtained. FINDINGS: Liver: Small lobulated liver consistent with liver cirrhosis. 17.5 cm. Main portal vein flow: Hepatopetal. Left liver lobe echogenic nodule 1.9 x 1.5 x 1.6 cm. Probable hemangioma. Course liver texture. Gallbladder: Gallbladder wall thickening measuring upwards to 5 mm. Shadowing gallstones 1 cm gallbladder neck. Negative for pericholecystic fluid. Positive sonographic Shipman sign. Biliary System: CBD measures 5.2 mm. No intrahepatic or extrahepatic ductal dilatation. Visualized pancreas is negative for focal mass or pancreatic duct dilatation. Other: Right kidney is without hydronephrosis. Probable nonobstructing 5 mm inferior right kidney calyceal stone. Right kidney measures 10.6 cm in length. Possible nonobstructing superior right kidney 3 mm calyceal stone. Question mid to inferior right kidney 4 mm calyceal stone versus vascular calcification. Negative for ascites. IMPRESSION: 1. Liver cirrhosis. 2. Negative for extrahepatic biliary dilatation. 3. Diffuse gallbladder wall thickening secondary to chronic liver disease and/or cholecystitis. 4. Gallstones 1 cm gallbladder neck. Right upper quadrant tenderness. Possible early acute cholecystitis. RADIA
== END 2019-07-31 19:16 | disposition home or self-care (01) ==
LOC: ED 15:26
DX: R10.11 Right upper quadrant pain (principal); R10.13 Epigastric pain; R11.2 Nausea with vomiting, unspecified; K80.20 Calculus of gallbladder without cholecystitis without obstruction; K74.60 Unspecified cirrhosis of liver; I10 Essential (primary) hypertension; E11.9 Type 2 diabetes mellitus without complications; Z79.4 Long term (current) use of insulin; F17.200 Nicotine dependence, unspecified, uncomplicated
CPT/HCPCS: 36415; 76705; 80053; 81003; 83690; 84443; 85025; 99284; A9270; 81001; 87086

== ENCOUNTER 2019-08-02 05:44 | Outpatient (CLI) | payer MEDICAID | END 2019-08-02 05:45 | disposition short-term general hospital (02) | LOC: EMS 05:44 | PROVIDERS: ATTEND Surgery | DX: R07.9 Chest pain, unspecified (principal); R10.11 Right upper quadrant pain; K92.0 Hematemesis | CPT/HCPCS: A0425; A0427; A0999 ==

== ENCOUNTER 2020-06-25 11:45 | Outpatient (CLI) | payer MEDICAID | END 2020-06-25 11:46 | disposition critical access hospital (66) | LOC: EMS 11:45 | PROVIDERS: ATTEND Surgery | DX: R10.9 Unspecified abdominal pain (principal); R14.0 Abdominal distension (gaseous); M54.9 Dorsalgia, unspecified | CPT/HCPCS: A0425; A0427; A0999 ==

== ENCOUNTER 2020-06-25 12:04 | Emergency (ER) | payer MEDICAID ==
[2020-06-25] MEDS ORDERED: HYDROmorphone 1 MG/ML CARPUJECT IVP STA (12:29)
--- NOTE | 2020-06-25 12:32 | ED Physician Documentation ---
History of Present Illness - Stated complaint Stated Complaint: ABD PX - Chief complaint Chief Complaint: Abd Pain - Additonal information Additional information: 55-year-old male with a history of cirrhosis [facility]. He reports to me that he was scheduled to go to [facility] today for his weekly paracentesis but the pain in the abdomen became too severe therefore he presents to [facility]. He has had no fevers or vomiting. He also reports melena and intermittend BRBPR ongoing for the last few months. . He has a grossly distended abdomen with palpable ascites. He reports that they typically remove more than 10 L of fluid with each paracentesis. He reprots that he is scheduled for an EGD tomorrow at [facility] He does endorse recent methamphetamine and cannabis use. Denies alcohol use. He does have a history of hepatitis C. Due to pain and discomfort patient is not able to answer many ROS questions or elicit further on his history. Much of the history obtained from the chart Review of Systems Unable to obtain: Other (pain) Constitutional: denies: Fever, Chills Eyes: reports: Reviewed and negative Ears: reports: Reviewed and negative Nose: reports: Reviewed and negative Cardiac: reports: Reviewed and negative Respiratory: reports: Reviewed and negative GI: reports: Abdominal Pain, Abdominal Swelling, Bloody / black stool. denies: Nausea, Vomiting, Hematemesis : reports: Reviewed and negative Skin: reports: Other (stigmata of Cirrhosis noted on skin) Musculoskeletal: reports: Reviewed and negative PD PAST MEDICAL HISTORY - Past Medical History Cardiovascular: Hypertension, High cholesterol Respiratory: None Neuro: None Endocrine/Autoimmune: Type 2 diabetes, HyPOthyroidism GI: GERD, Esophageal varices, Cirrhosis, Other : Frequency HEENT: None Psych: Depression, Anxiety, Post traumatic stress disorder Musculoskeletal: Chronic back pain Derm: None - Past Surgical History Past Surgical History: No General: Other - Present Medications Home Medications: Ambulatory Orders Medication Instructions Recorded Confirmed Levothyroxine Sodium [Synthroid] 150 mcg PO QDAC 08/06/17 10/24/18 Insulin Glargine [Lantus Solostar] 21 unit SQ DAILY PM 10/24/18 10/24/18 Insulin Lispro [Humalog Kwikpen 7 unit SUBQ TIDWM 10/24/18 10/24/18 U-100] metFORMIN [Glucophage] 1,000 mg PO BIDWM 10/24/18 10/24/18 Amox/Clav 875/125 [Augmentin] 1 each PO Q12H #20 tablet 10/28/18 Metoclopramide [Reglan] 10 mg PO Q6H PRN #10 tablet 03/05/19 Famotidine 20 mg PO DAILY #30 tablet 07/31/19 Ondansetron Odt [Zofran] 4 mg TL Q6H PRN #20 tablet 07/31/19 Sucralfate [Carafate] 1 gm PO ACHS #60 tablet 07/31/19 - Allergies Allergies/Adverse Reactions: Allergies Allergy/AdvReac Type Severity Reaction Status Date / Time No Known Drug Allergies Allergy Verified 06/25/20 12:19 - Social History Does the pt smoke?: Yes Smoking Status: Current every day smoker Does the pt drink ETOH?: No Does the pt have substance abuse?: No - Immunizations Immunizations are current?: Yes - POLST Patient has POLST: Yes POLST Status: Full Code PD ED PE EXPANDED - General General: In Pain, In distress - Neck Neck: Supple w/out meningeal sx - Cardiac Cardiac: Regular Rate, Regular Rhythm, Radial strong equal, Pedal strong equal, Cap refill < 2 sec - Respiratory Respiratory: Clear to ausultation parveen. No: Distress, Labored - Abdomen Abdomen: Normal Bowel sounds, Distended, Tender to palpation, Generalized/diffuse - Back Back: Normal exam. No: Vertebral tenderness, Soft tissue tenderness - Neuro Neuro: Alert and Oriented X 3, CNII-XII intact - GCS Eye Opening: Spontaneous Motor: Obeys Commands Verbal: Oriented Total: 15 Results - Vitals Vitals: Vital Signs - 24 hr 06/25/20 06/25/20 06/25/20 12:10 13:36 14:06 Temperature 36.5 C Heart Rate 114 H 109 H 111 H Respiratory 22 17 19 Rate Blood Pressure 125/68 122/85 H 113/71 O2 Saturation 100 99 97 06/25/20 06/25/20 14:36 14:47 Temperature 36.1 C L Heart Rate 107 H 108 H Respiratory 12 16 Rate Blood Pressure 104/64 O2 Saturation Oxygen O2 Source Room air - EKG (time done) 1328 Rate: Rate (enter#) (107) Rhythm: Sinus tachycardia Orient: Normal Intervals: Normal AK QRS: Normal Ischemia: Normal ST segments Computer interpretation: Agree with computer ( ) - Labs Labs: Laboratory Tests 06/25/20 06/25/20 06/25/20 12:45 12:47 12:47 WBC 7.1 RBC 2.13 L Hgb 5.9 L* Hct 19.6 L* MCV 92.0 MCH 27.7 MCHC 30.1 L RDW 14.8 Plt Count 104 L MPV 12.5 H Neut # (Auto) 4.3 Lymph # (Auto) 1.7 [place] # (Auto) 0.7 Eos # (Auto) 0.3 Baso # (Auto) 0.1 Absolute Nucleated RBC 0.00 Nucleated RBC % 0.0 PT 17.9 H INR 1.6 H Sodium 126 L Potassium 5.8 H Chloride 94 L Carbon Dioxide 17 L Anion Gap 15.0 H BUN 29 H Creatinine 2.0 H Estimated GFR (MDRD) 35 L Glucose 572 H* Lactic Acid Calcium 8.5 Total Bilirubin 1.6 H AST 31 ALT 17 Alkaline Phosphatase 79 Total Protein 6.1 L Albumin 2.6 L Globulin 3.5 Albumin/Globulin Ratio 0.7 L Lipase 63 H Blood Type Blood Type Recheck Antibody Screen Crossmatch IS Only 06/25/20 06/25/20 06/25/20 12:47 12:55 13:05 WBC RBC Hgb Hct MCV MCH MCHC RDW Plt Count MPV Neut # (Auto) Lymph # (Auto) [place] # (Auto) Eos # (Auto) Baso # (Auto) Absolute Nucleated RBC Nucleated RBC % PT INR Sodium Potassium Chloride Carbon Dioxide Anion Gap BUN Creatinine Estimated GFR (MDRD) Glucose Lactic Acid 8.0 H* Calcium Total Bilirubin AST ALT Alkaline Phosphatase Total Protein Albumin Globulin Albumin/Globulin Ratio Lipase Blood Type A POSITIVE Blood Type Recheck A POSITIVE Antibody Screen NEGATIVE Crossmatch IS Only See Detail Procedures - Central Line Central Line Preparation: Unable to obtain consent, Time out completed, Ultrasound used, Sterile prep and drape Central line location: Right IJ Central line type: Triple lumen Central line aftercare: Chlorhexidine disc placed, Secured, Placement confirmed, No pneumothorax, No complications, Pt tolerated well, Other (Proctored by Dr. Durán) PD MEDICAL DECISION MAKING - ED course Complexity details: reviewed results, re-evaluated patient, considered differential, d/w patient ED course: 55-year-old male with a history of cirrhosis who obtains weekly paracentesis through [facility] presents to the emergency department with acute abdominal pain and swelling. Due to pain he was unable to make it up to his appointment for the paracentesis. He does not have any fevers here. Labs are pending. he also reports a EGD scheduked for tomorrow am 1310: Critical labs reveal a lactic acid of 8, glucose greater than 500 as well as a hemoglobin of 5.9. This gentleman is critically ill. I have ordered octreotide and Protonix drip and infusion. 2 units of PRBC ordered. I have also ordered 1 L of IV fluids. Noted hyperkalemia. EKG is sinus tach w/o peaked T waves. lasix, insulin, albuterol and albumin ordered. 1315: I spoken with GI specialist Dr. Hand at [facility] he does want the patient transferred emergently to [facility] we are now looking for an accepting hospitalist. I have discussed the need to transfer and further care with the patient and his . 1330: Patient had greater than 500 mL of hematic emesis in the room. I have spoken with Dr. Steel the hospitalist At [facility] who has agreed to accept the patient - 1400: Right IJ triple-lumen central venous catheter was placed emergently at the bedside with Dr. Kike alvarado. There were no complications. However given critical illness and prolonged delay for ground transport this gentleman will be flown to [facility]. - Critical Care Time(min): 30 Time Includes: Direct patient care, Review records, Coordinate care, Family consult for tx dec Data interpretation: Labs, Prior EKG Procedures excluded from critical care time: Central IV Departure - Departure Disposition: 02 Transfer Acute Care Hosp Clinical Impression: Hyperkalemia, Elevated lactic acid level GI bleed Qualifiers: GI bleed type/associated pathology: gastrointestinal hemorrhage with hematemesis Qualified Code(s): K92.0 - Hematemesis Anemia Qualifiers: Anemia type: iron deficiency Iron deficiency anemia type: chronic blood loss Qualified Code(s): D50.0 - Iron deficiency anemia secondary to blood loss (chronic) Cirrhosis Qualifiers: Hepatic cirrhosis type: unspecified hepatic cirrhosis Ascites presence: with ascites Qualified Code(s): K74.60 - Unspecified cirrhosis of liver
[2020-06-25 12:52] LABS: BASOPHILS # (AUTO) 0.1 10^3/uL (0.0-0.1); BASOPHILS % (AUTO) 0.8 %; EOSINOPHILS # (AUTO) 0.3 10^3/uL (0.0-0.7); EOSINOPHILS % (AUTO) 3.5 %; LYMPHOCYTES # (AUTO) 1.7 10^3/uL (1.5-3.5); LYMPHOCYTES % (AUTO) 24.5 %; MEAN CORPUSCULAR HEMOGLOBIN 27.7 pg (27.0-31.0); MEAN CORPUSCULAR HGB CONC 30.1 g/dL (32.0-36.0); MEAN PLATELET VOLUME 12.5 fL (7.4-11.4); MONOCYTES # (AUTO) 0.7 10^3/uL (0.0-1.0); MONOCYTES % (AUTO) 9.6 %; NEUTROPHILS # (AUTO) 4.3 10^3/uL (1.5-6.6); NEUTROPHILS % (AUTO) 60.9 %; PLT - PLATELET COUNT 104 10^3/uL (130-450); RED BLOOD COUNT 2.13 10^6/uL (4.70-6.10); RED CELL DISTRIBUTION WIDTH 14.8 % (12.0-15.0); WHITE BLOOD COUNT 7.1 x10^3/uL (4.8-10.8)
[2020-06-25 12:58] LABS: HGB - HEMOGLOBIN 5.9 g/dL (14.0-18.0)
[2020-06-25] MEDS ORDERED: OCTREOTIDE 100 MCG/ML VIAL IVP STA (13:05)
[2020-06-25] MEDS ORDERED: PANTOPRAZOLE 80 MG in SODIUM CHLORIDE 0.9% 100ML 100 ML IV STA (13:05)
[2020-06-25] MEDS ORDERED: OCTREOTIDE 500 MCG in SODIUM CHLORIDE 0.9% 100ML 95 ML IV STA (13:05)
[2020-06-25 13:06] LABS: ALBUMIN 2.6 g/dL (3.2-5.5); ALBUMIN/GLOBULIN RATIO 0.7 (1.0-2.2); BILIRUBIN,TOTAL 1.6 mg/dL (0.2-1.0); CALCIUM 8.5 mg/dL (8.5-10.3); TOTAL PROTEIN 6.1 g/dL (6.7-8.2)
[2020-06-25] MEDS ORDERED: cefTRIAXone 2 GM VIAL IVP STA (13:06)
[2020-06-25] MEDS ORDERED: SODIUM CHLORIDE 0.9% 1,000 ML IV STA (13:10)
[2020-06-25] MEDS ORDERED: INSULIN REGULAR HUMAN 100 UNIT/1 ML 10 ML MDV IVP STA (13:17)
[2020-06-25] MEDS ORDERED: ALBUTEROL NEB 2.5 MG/3 ML INH STA (13:17)
[2020-06-25] MEDS ORDERED: ALBUMIN 25% 12.5 GM/50 ML VIAL IV STA (13:18)
[2020-06-25 13:32] LABS: INR 1.6 (0.8-1.2); PT - PROTHROMBIN TIME 17.9 secs (9.9-12.6)
[2020-06-25] MEDS ORDERED: FUROSEMIDE 20 MG/2 ML VIAL IVP STA (13:42)
--- NOTE | 2020-06-25 14:29 | XRAY Report ---
PROCEDURE: Chest for Line Placement INDICATIONS: RIJ CVC TECHNIQUE: One view of the chest was acquired. COMPARISON: 08/20/2017 FINDINGS: Surgical changes and devices: Central venous catheter projects in the distal SVC via a right IJ appro ach.. Lungs and pleura: No pleural effusions or pneumothorax. Lungs are clear. Mediastinum: Mediastinal contours appear normal. Heart size is normal. Bones and chest wall: No suspicious bony lesions. Overlying soft tissues appear unremarkable. IMPRESSION: 1. Tip of central venous catheter in the distal SVC. 2. No acute cardiopulmonary disease process. Reviewed by: Izabella Mcintyre MD, PhD on 06/25/2020 2:28 PM PST Approved by: Izabella Mcintyre MD, PhD on 06/25/2020 2:28 PM PST Station ID: [id number]
[2020-06-25 16:23] VITALS: BP 99/84
[2020-06-25 16:35] LABS: BILIRUBIN,URINE NEGATIVE (NEGATIVE); CLARITY,URINE CLEAR (CLEAR); GLUCOSE, URINE (UA) >=1000 mg/dL (NEGATIVE); KETONES,URINE (UA) NEGATIVE (NEGATIVE); LEUKOCYTE ESTERASE, URINE NEGATIVE (NEGATIVE); NITRITE,URINE NEGATIVE (NEGATIVE); OCCULT BLOOD,URINE NEGATIVE (NEGATIVE); PH,URINE 5.5 PH (5.0-7.5); PROTEIN,URINE NEGATIVE (NEGATIVE); UROBILINOGEN,URINE 0.2 (NORMAL) E.U./dL (NORMAL)
== END 2020-06-25 15:16 | disposition short-term general hospital (02) ==
LOC: EDUNIT# → ED 12:04
DX: K92.0 Hematemesis (principal); D50.0 Iron deficiency anemia secondary to blood loss (chronic); K74.60 Unspecified cirrhosis of liver; R18.8 Other ascites; E87.5 Hyperkalemia; E11.65 Type 2 diabetes mellitus with hyperglycemia; Z79.4 Long term (current) use of insulin; R74.02 Elevation of levels of lactic acid dehydrogenase [LDH]; R00.0 Tachycardia, unspecified; B19.20 Unspecified viral hepatitis C without hepatic coma; I10 Essential (primary) hypertension; F17.200 Nicotine dependence, unspecified, uncomplicated
CPT/HCPCS: 36415; 36430; 36556; 51702; 80053; 81003; 83605; 83690; 85025; 85610; 86850; 86900; 86901; 86920; 87040; 87077; 87181; 93005; 94640; 96365; 96375; 99291; J1170; J1815; J2354; P9016; P9047; 71045; 81001; 87086

== ENCOUNTER 2020-08-24 16:58 | Outpatient (CLI) | payer MEDICAID | END 2020-08-24 16:59 | disposition EMS.NT | LOC: EMS 16:58 | PROVIDERS: ATTEND Surgery | DX: K92.0 Hematemesis (principal) ==

== ENCOUNTER 2020-09-05 08:56 | Outpatient (CLI) | payer MEDICAID | END 2020-09-05 08:57 | disposition critical access hospital (66) | LOC: EMS 08:56 | PROVIDERS: ATTEND Surgery | DX: R40.4 Transient alteration of awareness (principal) | CPT/HCPCS: A0425; A0427; A0999 ==

== ENCOUNTER 2020-09-05 09:11 | Emergency (ER) | payer MEDICARE, MEDICAID ==
[2020-09-05] MEDS ORDERED: SODIUM CHLORIDE 0.9% 1,000 ML IV STA ×2 (09:20→10:40)
--- NOTE | 2020-09-05 09:23 | ED Physician Documentation ---
PD HPI ALTERED MENTAL STATUS - Stated complaint Stated Complaint: UNRESPONSIVE - History obtained from History obtained from: Family, EMS - History of Present Illness Timing - onset: Today, Last night Timing - duration: Days (1) Quality / character: Less responsive, Confused, Agitated Contributing factors: No: Anticoagulated, Diabetic, New medication, Recent med change Basline status: Alert and oriented X 3, Ambulatory Similar symptoms before: Has not had sx before Recently seen: Emergency Dept, Admitted (Seen at [facility] on 24 August for several days due to upper GI bleed. Records from there showed he had endoscopy with banding of varices. His ammonia level at that time was 21. Hemoglobin was comparable to today. No apparent change in medicines.) Review of Systems Unable to obtain: AMS, Confused PD PAST MEDICAL HISTORY - Past Medical History Cardiovascular: Hypertension, High cholesterol Respiratory: None Neuro: None Endocrine/Autoimmune: Type 2 diabetes, HyPOthyroidism GI: GERD, Esophageal varices, Cirrhosis, Other : Frequency HEENT: None Psych: Depression, Anxiety, Post traumatic stress disorder Musculoskeletal: Chronic back pain Derm: None - Past Surgical History Past Surgical History: No General: Other - Present Medications Home Medications: Ambulatory Orders Medication Instructions Recorded Confirmed Levothyroxine Sodium [Synthroid] 150 mcg PO QDAC 08/06/17 09/05/20 metFORMIN [Glucophage] 1,000 mg PO BIDWM 10/24/18 09/05/20 Ondansetron Odt [Zofran] 4 mg TL Q6H PRN #20 tablet 07/31/19 09/05/20 Baclofen [Lioresal] 1 tab PO PRN PRN 09/05/20 09/05/20 Furosemide [Lasix] 0.5 tab PO DAILY 09/05/20 09/05/20 LORazepam [Ativan] 0.5 - 2 mg PO PRN PRN 09/05/20 09/05/20 Nadolol [Corgard] 1 tab PO DAILY 09/05/20 09/05/20 Omeprazole 20 mg PO DAILY 09/05/20 09/05/20 Pantoprazole [Protonix] 2 tab PO BIDAC 09/05/20 09/05/20 Promethazine [Phenergan] 1 tab PO Q6H PRN 09/05/20 09/05/20 Spironolactone [Aldactone] 1 tab PO DAILY 09/05/20 09/05/20 buPROPion [Wellbutrin Xl] 1 tab PO DAILY 09/05/20 09/05/20 traZODone [Desyrel] 1 tab PO PRN PRN 09/05/20 09/05/20 - Allergies Allergies/Adverse Reactions: Allergies Allergy/AdvReac Type Severity Reaction Status Date / Time No Known Drug Allergies Allergy Verified 06/25/20 12:19 - Social History Does the pt smoke?: Yes Smoking Status: Current every day smoker Does the pt drink ETOH?: No Does the pt have substance abuse?: No - Immunizations Immunizations are current?: Yes - POLST Patient has POLST: Yes POLST Status: Full Code PD ED PE NORMAL - Vitals Vital signs reviewed: Yes (The patient is somewhat pale. He is agitated. Sats are good) - General General: Well developed/nourished, Other (Is agitated with somewhat thrashing movements. Extremities seem to be symmetric though on purposeful with movement. No seizure movements. ) - HEENT HEENT: Atraumatic, Pharynx benign. No: Moist mucous membranes - Neck Neck: Supple, no meningeal sign, No JVD - Cardiac Cardiac: No: RRR (tachycardic but regular) - Respiratory Respiratory: No respiratory distress (somewhat fast breathing), Clear bilaterally - Abdomen Abdomen: Other (Mildly distended with dullness to percussion. It is not obviously tight.). No: Normal bowel sounds (decreased) - Male Male : Deferred - Rectal Rectal: Other (brown soft stool in vault) - Back Back: No CVA TTP - Derm Derm: Warm and dry. No: Normal color (pale) - Extremities Extremities: No deformity, No edema - Neuro Neuro: No: Alert and oriented X 3 Eye Opening: To Pain Motor: Localizes to Pain Verbal: None GCS Score: 8 Results - Vitals Vitals: Vital Signs - 24 hr 09/05/20 09/05/20 09/05/20 09:17 10:42 11:19 Temperature 36.1 C L Heart Rate 111 H 118 H 111 H Respiratory 22 28 H 16 Rate Blood Pressure 130/86 H 124/97 H 163/108 H O2 Saturation 100 100 100 09/05/20 09/05/20 12:00 13:40 Temperature Heart Rate 119 H 127 H Respiratory 26 H 24 Rate Blood Pressure 129/76 152/86 H O2 Saturation 97 99 Oxygen O2 Source Room air - Labs Labs: Laboratory Tests 09/05/20 09/05/20 09/05/20 09:25 09:25 09:25 WBC 6.9 RBC 3.57 L Hgb 10.0 L Hct 30.7 L MCV 86.0 MCH 28.0 MCHC 32.6 RDW 18.4 H Plt Count 127 L MPV 12.0 H Neut # (Auto) 4.7 Lymph # (Auto) 1.4 L [place] # (Auto) 0.6 Eos # (Auto) 0.2 Baso # (Auto) 0.1 Absolute Nucleated RBC 0.00 Nucleated RBC % 0.0 PT INR APTT Bld Gas Analysis Time Sample Site ABG pH ABG pCO2 ABG pO2 ABG HCO3 ABG Total CO2 ABG O2 Saturation ABG Base Excess Adam Test O2 Delivery Device FiO2 Sodium 134 L Potassium 4.5 Chloride 104 Carbon Dioxide 18 L Anion Gap 12.0 BUN 63 H Creatinine 1.9 H Estimated GFR (MDRD) 37 L Glucose 278 H Lactic Acid 3.1 H* Calcium 9.3 Magnesium 2.0 Total Bilirubin 1.4 H AST 83 H ALT 38 Alkaline Phosphatase 116 Ammonia Total Protein 7.5 Albumin 2.9 L Globulin 4.6 H Albumin/Globulin Ratio 0.6 L Lipase 111 H Urine Color Urine Clarity Urine pH Ur Specific [place] Urine Protein Urine Glucose (UA) Urine Ketones Urine Occult Blood Urine Nitrite Urine Bilirubin Urine Urobilinogen Ur Leukocyte Esterase Ur Microscopic Review Urine Culture Comments Nasal Adenovirus (PCR) Nasal B. parapertussis DNA (PCR) Nasal Coronavir 229E PCR Nasal Coronavir HKU1 PCR Nasal Coronavir NL63 PCR Nasal Coronavir OC43 PCR Nasal Enterovir/Rhinovir PCR Nasal Influenza B PCR Nasal Influenza A PCR Nasal Parainfluen 1 PCR Nasal Parainfluen 2 PCR Nasal Parainfluen 3 PCR Nasal Parainfluen 4 PCR Nasal RSV (PCR) Nasal B.pertussis DNA PCR Nasal C.pneumoniae (PCR) Michele Human Metapneumo PCR Nasal M.pneumoniae (PCR) Nasal SARS-CoV-2 (PCR) Urine Opiates Screen Ur Oxycodone Screen Urine Methadone Screen Ur Propoxyphene Screen Ur Barbiturates Screen Ur Tricyclics Screen Ur Phencyclidine Scrn Ur Amphetamine Screen U Methamphetamines Scrn U Benzodiazepines Scrn Urine Cocaine Screen U Cannabinoids Screen Serum Ketones NEGATIVE 09/05/20 09/05/20 09/05/20 09:25 09:25 10:05 WBC RBC Hgb Hct MCV MCH MCHC RDW Plt Count MPV Neut # (Auto) Lymph # (Auto) [place] # (Auto) Eos # (Auto) Baso # (Auto) Absolute Nucleated RBC Nucleated RBC % PT 13.2 H INR 1.2 APTT 24.0 L Bld Gas Analysis Time 1005 Sample Site LEFT RADIAL ABG pH 7.54 H ABG pCO2 19 L* ABG pO2 114 H ABG HCO3 15.7 L ABG Total CO2 16.3 L ABG O2 Saturation 99 H ABG Base Excess -5.1 L Adam Test POSITIVE O2 Delivery Device RA FiO2 0.21 Sodium Potassium Chloride Carbon Dioxide Anion Gap BUN Creatinine Estimated GFR (MDRD) Glucose Lactic Acid Calcium Magnesium Total Bilirubin AST ALT Alkaline Phosphatase Ammonia 215.1 H* Total Protein Albumin Globulin Albumin/Globulin Ratio Lipase Urine Color Urine Clarity Urine pH Ur Specific [place] Urine Protein Urine Glucose (UA) Urine Ketones Urine Occult Blood Urine Nitrite Urine Bilirubin Urine Urobilinogen Ur Leukocyte Esterase Ur Microscopic Review Urine Culture Comments Nasal Adenovirus (PCR) Nasal B. parapertussis DNA (PCR) Nasal Coronavir 229E PCR Nasal Coronavir HKU1 PCR Nasal Coronavir NL63 PCR Nasal Coronavir OC43 PCR Nasal Enterovir/Rhinovir PCR Nasal Influenza B PCR Nasal Influenza A PCR Nasal Parainfluen 1 PCR Nasal Parainfluen 2 PCR Nasal Parainfluen 3 PCR Nasal Parainfluen 4 PCR Nasal RSV (PCR) Nasal B.pertussis DNA PCR Nasal C.pneumoniae (PCR) Michele Human Metapneumo PCR Nasal M.pneumoniae (PCR) Nasal SARS-CoV-2 (PCR) Urine Opiates Screen Ur Oxycodone Screen Urine Methadone Screen Ur Propoxyphene Screen Ur Barbiturates Screen Ur Tricyclics Screen Ur Phencyclidine Scrn Ur Amphetamine Screen U Methamphetamines Scrn U Benzodiazepines Scrn Urine Cocaine Screen U Cannabinoids Screen Serum Ketones 09/05/20 09/05/20 09/05/20 10:55 12:03 14:40 WBC RBC Hgb Hct MCV MCH MCHC RDW Plt Count MPV Neut # (Auto) Lymph # (Auto) [place] # (Auto) Eos # (Auto) Baso # (Auto) Absolute Nucleated RBC Nucleated RBC % PT INR APTT Bld Gas Analysis Time 1440 Sample Site LEFT RADIAL ABG pH 7.52 H ABG pCO2 17 L* ABG pO2 108 H ABG HCO3 13.3 L ABG Total CO2 13.9 L ABG O2 Saturation 98 ABG Base Excess -7.7 L Adam Test POSITIVE O2 Delivery Device RA FiO2 0.21 Sodium Potassium Chloride Carbon Dioxide Anion Gap BUN Creatinine Estimated GFR (MDRD) Glucose Lactic Acid Calcium Magnesium Total Bilirubin AST ALT Alkaline Phosphatase Ammonia Total Protein Albumin Globulin Albumin/Globulin Ratio Lipase Urine Color YELLOW Urine Clarity CLEAR Urine pH 6.0 Ur Specific [place] 1.015 Urine Protein NEGATIVE Urine Glucose (UA) 250 H Urine Ketones NEGATIVE Urine Occult Blood NEGATIVE Urine Nitrite NEGATIVE Urine Bilirubin NEGATIVE Urine Urobilinogen 0.2 (NORMAL) Ur Leukocyte Esterase NEGATIVE Ur Microscopic Review NOT INDICATED Urine Culture Comments NOT INDICATED Nasal Adenovirus (PCR) NOT DETECTED Nasal B. parapertussis DNA (PCR) NOT DETECTED Nasal Coronavir 229E PCR NOT DETECTED Nasal Coronavir HKU1 PCR NOT DETECTED Nasal Coronavir NL63 PCR NOT DETECTED Nasal Coronavir OC43 PCR NOT DETECTED Nasal Enterovir/Rhinovir PCR NOT DETECTED Nasal Influenza B PCR NOT DETECTED Nasal Influenza A PCR NOT DETECTED Nasal Parainfluen 1 PCR NOT DETECTED Nasal Parainfluen 2 PCR NOT DETECTED Nasal Parainfluen 3 PCR NOT DETECTED Nasal Parainfluen 4 PCR NOT DETECTED Nasal RSV (PCR) NOT DETECTED Nasal B.pertussis DNA PCR NOT DETECTED Nasal C.pneumoniae (PCR) NOT DETECTED Michele Human Metapneumo PCR NOT DETECTED Nasal M.pneumoniae (PCR) NOT DETECTED Nasal SARS-CoV-2 (PCR) NOT DETECTED Urine Opiates Screen POSITIVE H Ur Oxycodone Screen NEGATIVE Urine Methadone Screen NEGATIVE Ur Propoxyphene Screen NEGATIVE Ur Barbiturates Screen NEGATIVE Ur Tricyclics Screen NEGATIVE Ur Phencyclidine Scrn NEGATIVE Ur Amphetamine Screen POSITIVE H U Methamphetamines Scrn POSITIVE H U Benzodiazepines Scrn NEGATIVE Urine Cocaine Screen NEGATIVE U Cannabinoids Screen NEGATIVE Serum Ketones PD MEDICAL DECISION MAKING - ED course Complexity details: reviewed results, re-evaluated patient (Remains clinically stable with adequate oxygenation. Heart rate is decreased with some IV fluids. He appears to be ventilating adequately with blood gas results. His ammonia level is quite elevated and lactulose is given KS. Given recent varices with banding, I am reluctant to place an NG tube.), considered differential ( Long differential for potential causes. Will check for intracranial pathology with CT scan. Labs to assess for metabolic disorders. No fever noted but will look for potential infections.), d/w patient ED course: Dr. Reyna here evaluated the patient and felt he was more complicated than our facility. I talked with [facility] hospitalist who said he would accept the patient in transfer. It was a prolonged ER course waiting for bed availability at [facility] but subsequently they were able to find 1. Repeat doses of lactulose were given. IV fluid was maintained. Vitals and oxygenation remained stable. His level of alertness did not really improve much as yet. The patient remained stable in the ER. He is less agitated with time. He had had repeat dosing of the rectal lactulose enema. Vital signs are stable. We are awaiting bed assignment from [facility] and this did take a few hours. The patient will be transferred once that is confirmed - Critical Care Time(min): 65 Time Includes: Direct patient care, Reassess patient, Document care Data interpretation: Labs, Pulse ox, ABG, CXR Procedures included in critical care time: Peripheral IV Departure - Departure Disposition: 02 Transfer Acute Care Hosp Clinical Impression: Hyperammonemia, Liver disease, Hepatic encephalopathy Altered mental status Qualifiers: Altered mental status type: delirium Qualified Code(s): R41.0 - Disorientation, unspecified Condition: Fair
[2020-09-05] MEDS ORDERED: LORazepam 2 MG/ML VIAL IVP STA (09:33)
[2020-09-05 09:38] LABS: BASOPHILS # (AUTO) 0.1 10^3/uL (0.0-0.1); BASOPHILS % (AUTO) 0.7 %; EOSINOPHILS # (AUTO) 0.2 10^3/uL (0.0-0.7); LYMPHOCYTES # (AUTO) 1.4 10^3/uL (1.5-3.5); LYMPHOCYTES % (AUTO) 19.8 %; MEAN CORPUSCULAR HGB CONC 32.6 g/dL (32.0-36.0); MONOCYTES # (AUTO) 0.6 10^3/uL (0.0-1.0); MONOCYTES % (AUTO) 8.4 %; NEUTROPHILS # (AUTO) 4.7 10^3/uL (1.5-6.6); NEUTROPHILS % (AUTO) 67.7 %; PLT - PLATELET COUNT 127 10^3/uL (130-450); RED BLOOD COUNT 3.57 10^6/uL (4.70-6.10); RED CELL DISTRIBUTION WIDTH 18.4 % (12.0-15.0); WHITE BLOOD COUNT 6.9 x10^3/uL (4.8-10.8)
[2020-09-05] MEDS ORDERED: LORazepam 2 MG/ML VIAL ONE (09:45)
[2020-09-05 09:46] LABS: ALBUMIN 2.9 g/dL (3.2-5.5); ALBUMIN/GLOBULIN RATIO 0.6 (1.0-2.2); ALKALINE PHOSPHATASE 116 IU/L (42-121); ALT ALANINE AMINOTRANSFERASE 38 IU/L (10-60); AST ASPARTATE AMINOTRANSFERASE 83 IU/L (10-42); BILIRUBIN,TOTAL 1.4 mg/dL (0.2-1.0); BUN - BLOOD UREA NITROGEN 63 mg/dL (6-20); CALCIUM 9.3 mg/dL (8.5-10.3); CARBON DIOXIDE - CO2 18 mmol/L (21-32); CHLORIDE 104 mmol/L (101-111); CREATININE 1.9 mg/dL (0.6-1.2); GLUCOSE 278 mg/dL (70-100); INR 1.2 (0.8-1.2); LIPASE 111 U/L (22-51); PT - PROTHROMBIN TIME 13.2 secs (9.9-12.6); TOTAL PROTEIN 7.5 g/dL (6.7-8.2)
--- NOTE | 2020-09-05 09:52 | CT Report ---
PROCEDURE: HEAD WO INDICATIONS: altered mental status TECHNIQUE: Noncontrast 4.5 mm thick angled axial sections acquired from the foramen magnum to the vertex. For r adiation dose reduction, the following was used: automated exposure control, adjustment of mA and/or kV according to patient size. COMPARISON: None. FINDINGS: Image quality: Excellent. CSF spaces: Basal cisterns are patent. No extra-axial fluid collections. Ventricles are normal in size and shape. Brain: No midline shift. No intracranial masses or hemorrhage. Conn-white matter interface is norm al. Skull and face: Calvarium and visualized facial bones are intact, without suspicious lesions. Sinuses: Visualized sinuses and mastoids are clear. IMPRESSION: No CT evidence of acute intracranial pathology. Reviewed by: El Moncada MD on 09/05/2020 9:51 AM [facility] Approved by: El Moncada MD on 09/05/2020 9:51 AM [facility] Station ID: [id number]
[2020-09-05] MEDS ORDERED: LACTULOSE 10 GM/15 ML BOTTLE PR STA ×3 (09:54→13:42)
[2020-09-05 09:55] LABS: KETONES, SERUM (ACETEST) NEGATIVE (NEGATIVE)
[2020-09-05] MEDS ORDERED: LACTULOSE 10 GM /15 ML UDC PR STA ×2 (10:00→13:45)
--- NOTE | 2020-09-05 10:13 | XRAY Report ---
PROCEDURE: Chest 1 View X-Ray INDICATIONS: chest pain TECHNIQUE: One view of the chest was acquired. COMPARISON: 06/25/2020 FINDINGS: Surgical changes and devices: Previously seen right central venous catheter is not visualized. There is a possible catheter device projecting from the lower right neck with the distal tip projecting sli ghtly to the left of midline. This is likely related to artifact as a telephone discussion with order ing physician confirmed that there are no catheters devices within the patient at this location. Lungs and pleura: No pleural effusions or pneumothorax. Lungs are clear. Mediastinum: Mediastinal contours appear normal. Heart size is normal. Bones and chest wall: No suspicious bony lesions. Overlying soft tissues appear unremarkable. IMPRESSION: Chest without acute cardiopulmonary abnormalities. Reviewed by: Rafael Pinon MD on 09/05/2020 9:12 AM [facility] Approved by: Rafael Pinon MD on 09/05/2020 9:12 AM [facility] Station ID: [id number]
[2020-09-05 10:14] LABS: ABG PH 7.54 (7.35-7.45); ABG PO2 114 mmHg (80-100)
[2020-09-05 10:15] LABS: ABG BASE EXCESS -5.1 mmol/L (-2.0-3.0); ABG FRACTION OF INSPIRED O2 0.21; ABG HCO3 15.7 mmol/L (22.0-26.0); ABG OXYGEN SATURATION 99 % (94-98); ABG TCO2 16.3 MMOL/L (21.0-29.0); ALLEN TEST POSITIVE
[2020-09-05 10:17] LABS: ABG PCO2 19 mmHg (34-45)
[2020-09-05] MEDS ORDERED: LACTULOSE 10 GM /15 ML UDC PO STA (10:34)
[2020-09-05 11:01] LABS: MUDS CUTOFF CONCENTRATIONS CUTOFF CONC BELOW:
[2020-09-05 11:05] LABS: BILIRUBIN,URINE NEGATIVE (NEGATIVE); GLUCOSE, URINE (UA) 250 mg/dL (NEGATIVE); KETONES,URINE (UA) NEGATIVE (NEGATIVE); LEUKOCYTE ESTERASE, URINE NEGATIVE (NEGATIVE); NITRITE,URINE NEGATIVE (NEGATIVE); OCCULT BLOOD,URINE NEGATIVE (NEGATIVE); PROTEIN,URINE NEGATIVE (NEGATIVE); UROBILINOGEN,URINE 0.2 (NORMAL) E.U./dL (NORMAL)
[2020-09-05 11:06] LABS: CLARITY,URINE CLEAR (CLEAR)
[2020-09-05 11:14] LABS: AMPHETAMINE SCREEN,URINE POSITIVE (NEGATIVE); BENZODIAZEPINES SCREEN, URINE NEGATIVE (NEGATIVE); COCAINE SCREEN URINE NEGATIVE (NEGATIVE); METHADONE SCREEN, URINE NEGATIVE (NEGATIVE); METHAMPHETAMINES SCREEN, URINE POSITIVE (NEGATIVE); OPIATE SCREEN, URINE POSITIVE (NEGATIVE); OXYCODONE SCREEN, URINE NEGATIVE (NEGATIVE); PROPOXYPHENE SCREEN, URINE NEGATIVE (NEGATIVE); TRICYCLIC ANTIDEPRESSANT,URINE NEGATIVE (NEGATIVE)
[2020-09-05 13:40] VITALS: BP 152/86
[2020-09-05] MEDS ORDERED: BACITRACIN ZINC OINT 1 PACKET TOP STA (14:16)
[2020-09-05 14:52] LABS: ABG BASE EXCESS -7.7 mmol/L (-2.0-3.0); ABG HCO3 13.3 mmol/L (22.0-26.0); ABG PH 7.52 (7.35-7.45); ABG PO2 108 mmHg (80-100); ABG TCO2 13.9 MMOL/L (21.0-29.0)
[2020-09-05 14:53] LABS: ABG FRACTION OF INSPIRED O2 0.21; ABG OXYGEN SATURATION 98 % (94-98); ALLEN TEST POSITIVE
[2020-09-05 14:55] LABS: C. PNEUMONIAE- RESP PCR PANEL NOT DETECTED
[2020-09-05 14:55] LABS: ABG PCO2 17 mmHg (34-45)
== END 2020-09-05 16:10 | disposition short-term general hospital (02) ==
LOC: EDUNIT# → ED 09:11
DX: E72.20 Disorder of urea cycle metabolism, unspecified (principal); K76.9 Liver disease, unspecified; K72.90 Hepatic failure, unspecified without coma; I10 Essential (primary) hypertension; E11.9 Type 2 diabetes mellitus without complications; Z79.84 Long term (current) use of oral hypoglycemic drugs; Z20.822 Contact with and (suspected) exposure to COVID-19; F17.200 Nicotine dependence, unspecified, uncomplicated; R45.1 Restlessness and agitation; R41.0 Disorientation, unspecified
CPT/HCPCS: 36415; 36600; 70450; 71045; 80053; 80306; 81003; 82009; 82140; 82803; 83605; 83690; 83735; 85025; 85610; 85730; 87631; 93005; 96374; 99285; 99291; A9270; J2060; 0202U; 81001; 87086

== ENCOUNTER 2020-09-05 16:12 | Outpatient (CLI) | payer MEDICAID | END 2020-09-05 16:13 | disposition short-term general hospital (02) | LOC: EMS 16:12 | PROVIDERS: ATTEND Surgery | DX: R40.4 Transient alteration of awareness (principal); E72.20 Disorder of urea cycle metabolism, unspecified | CPT/HCPCS: A0425; A0426 ==